=== PATIENT | male | born 1950 | race Caucasian/White ===

== ENCOUNTER 2024-02-18 16:38 | Emergency (ER) | payer MEDICARE, SELFPAY ==
[2024-02-18] VITALS (8 sets, daily range): BP systolic 132–165; BP diastolic 68–83; PULSE 58–64; RESP 12–18; TEMP 36.9; O2SAT 93–98
--- NOTE | ~2024-02-18 | XR_ITS ---
XR chest 1V portable Ordering provider: Brandon Najera MD History: 73 years Male with . Feeling unwell . Comparison: None. FINDINGS: MEDIASTINUM: The cardiac silhouette is not enlarged. LUNGS: No infiltrates, effusions or pneumothorax. Prominent markings in the lower lobes. OTHER: No free air under the diaphragm. Degenerative the spine. IMPRESSION: No acute cardiopulmonary pathology. Prominent markings in the lower lobes. Bronchitis cannot be excluded. Reviewed, dictated and finalized at location A.
--- NOTE | 2024-02-18 18:05 | ECG_ITS ---
Test Date: 2024-02-18 18:09:04 Measurements Intervals [place] Rate: 61 P: 53 [place]: 186 QRS: 8 QRSD: 114 T: 42 QT: 494 QTc: 498 Interpretive Statements SINUS RHYTHM MODERATE INTRAVENTRICULAR CONDUCTION DELAY [110+ ms QRS DURATION] PROLONGED QT INTERVAL No previous ECG available for comparison Electronically Signed On 02-19-2024 12:58:26 CDT by Antonio Ryan M.D.
[2024-02-18 18:15] LABS: Basophils Percent Auto 0.6 % (0.2-1.2); Eosinophils Absolute Auto 0.1 K/mm3 (0-0.3); Eosinophils Percent Auto 1.1 % (0-4.4); Hematocrit 39.4 % (42.0-52.0); Hemoglobin 13.2 g/dL (14.0-18.0); Immature Granulocyte Absolute 0.09 K/mm3 (0.00-0.031); Immature Granulocyte Percent A 1.3 % (0-0.5); Lymphocytes Absolute Auto 1.03 K/mm3 (0.9-3.2); Lymphocytes Percent Auto 14.4 % (18.3-44.2); Mean Corpuscular HGB Conc 33.5 g/dl (32-36); Mean Corpuscular Hemoglobin 32.5 pg (26-34); Mean Platelet Volume 11.5 fl (7.4-10.4); Monocytes Absolute Auto 0.3 K/mm3 (0.1-0.6); Monocytes Percent Auto 3.9 % (2.6-8.5); Neutrophils Absolute Auto 5.6 K/mm3 (1.3-6.7); Neutrophils Percent Auto 78.7 % (45.5-73.1); Platelet Count Result 86 k/mm3 (150-375); Red Blood Count 4.06 M/mm3 (4.6-6.20); Red Cell Distribution Width 13.5 % (11.5-14.5); White Blood Count 7.1 K/mm3 (4.5-10.0)
[2024-02-18 18:26] LABS: Alanine Aminotransferase 35 U/L (6-50); Albumin Level 4.2 g/dL (3.5-5.1); Alkaline Phosphatase 56 U/L (38-126); Anion Gap 8 mmol/L (4-12); Aspartate Amino Transferase 36 U/L (17-59); Bilirubin,Total 0.4 mg/dL (0.2-1.3); Blood Urea Nitrogen 21 mg/dL (9-20); Calcium 9.1 mg/dL (8.4-10.2); Carbon Dioxide 26 mmol/L (22-30); Chloride 104 mmol/L (98-107); Estimated CRCL calculation 58 ml/min; Estimated Glomerular Filt Rate 60; Glucose 237 mg/dL (65-110); Potassium 4.2 mmol/L (3.4-5.0); Sodium 138 mmol/L (137-145)
[2024-02-18] MEDS: ACETAMINOPHEN 500 MG TABLET 1000 MG PO (19:16)
[2024-02-18] MEDS: ONDANSETRON INJ 4 MG/2 ML VIAL IV PUSH (19:16)
[2024-02-18] MEDS: SODIUM CHLORIDE 0.9% IV 2,000 ML 999 ML IV CONT (19:17)
--- NOTE | 2024-02-18 19:23 | PC.NURSE ---
this rn assumed care of patient.
--- NOTE | 2024-02-18 19:32 | ED.GENADULT ---
HPI - General Adult General Chief complaint: Dizziness Stated complaint: DIZZINESS,FLORES N/V Time Seen by Provider: 02/18/24 18:08 History of Present Illness HPI narrative: 89-year-old male presenting with sudden onset of flu-like symptoms. At 3:30 p.m. today was at the grocery store he started to feel well. He had episode of nausea and vomiting. He developed a headache and subjective fevers and diaphoresis. He has no associated chest pain shortness of breath or abdominal pain. He does note he has some dysuria he has been treated multiple rounds of antibiotics no change. Patient his has had a cold. Patient says his condition is rapidly improved since he had the episode of vomiting. Related Data Allergies Allergy/AdvReac Type Severity Reaction Status Date / Time morphine AdvReac Vomiting Verified 02/18/24 18:07 Exam Narrative: APPEARANCE: No apparent distress. Head: atraumatic. EYES: EOMI, NOSE: Atraumatic NECK: Trachea midline RESPIRATORY: No increased rate of breathing Clear to auscultation CARDIOVASCULAR: RRR, no peripheral edema ABDOMINAL: Non-distended soft nontender MUSCULOSKELETAl: No obvious deformities NEURO: Alert. Moving 4/4 extremities SKIN:: Warm, dry. Normal color PSYCHIATRIC: Normal affect Course Vital Signs Vital signs: Vital Signs Temperature 98.4 F 02/18/24 16:55 Pulse Rate 58 L 02/18/24 16:55 Respiratory Rate 18 02/18/24 16:55 Blood Pressure 165/76 H 02/18/24 16:55 Pulse Oximetry 95 02/18/24 16:55 Oxygen Delivery Room Air 02/18/24 16:55 Temperature 98.4 F 02/18/24 16:55 Pulse Rate 62 02/18/24 19:14 Respiratory Rate 12 02/18/24 19:14 Blood Pressure 151/78 H 02/18/24 19:14 Pulse Oximetry 96 02/18/24 19:14 Oxygen Delivery Room Air 02/18/24 16:55 Medical Decision Making [facility] Narrative Medical decision making narrative: -Course: 73-year-old male presenting with nausea and vomiting that has since resolved. Patient's workup here including laboratory studies, EKG chest x-ray and viral swabs were negative. Patient was monitored for several hours and is feeling well. He is requesting discharge home. Patient no longer has any symptoms. Patient discharged w/ return precautions. PCP f/u. -DDX includes but is not limited to: viral syndrome, food poisoning, ACS pneumonia, UTI dehydration, gastroenteritis -Co-morbidities complicating care: diabetes hypertension, atrial fibrillation -Independent interpretation of studies: CBC normal. Metabolic panel unremarkable viral swabs negative chest x-ray showed normal chest Independent EKG interpretation: Rhythm [sinus], Rate [61], [place] -[normal], [place] -[normal], QRS [narrow], QTC [normal], T waves -[negative for concerning inversions], ST Segments - [Negative for concerning elevations] Final interpretations: [Normal Sinus Rhythm] -Interventions: 2 L normal saline, Zofran, Tylenol -Shared decision making / Disposition: discharge Vital Signs Vital Signs: Vital Signs Temperature 98.4 F 02/18/24 16:55 Pulse Rate 58 L 02/18/24 16:55 Respiratory Rate 18 02/18/24 16:55 Blood Pressure 165/76 H 02/18/24 16:55 Pulse Oximetry 95 02/18/24 16:55 Oxygen Delivery Room Air 02/18/24 16:55 Temperature 98.4 F 02/18/24 16:55 Pulse Rate 62 02/18/24 19:14 Respiratory Rate 12 02/18/24 19:14 Blood Pressure 151/78 H 02/18/24 19:14 Pulse Oximetry 96 02/18/24 19:14 Oxygen Delivery Room Air 02/18/24 16:55 Lab Data 02/18/24 18:07 02/18/24 18:07 Labs: Lab Results 02/18/24 02/18/24 Range/Units 18:07 19:26 WBC 7.1 (4.5-10.0) K/mm3 RBC 4.06 L (4.6-6.20) M/mm3 Hgb 13.2 L (14.0-18.0) g/dL Hct 39.4 L (42.0-52.0) % MCV 97.0 (80-100) fl MCH 32.5 (26-34) pg MCHC 33.5 (32-36) g/dl RDW 13.5 (11.5-14.5) % Plt Count 86 L (150-375) k/mm3 MPV 11.5 H (7.4-10.4) fl Immature Gran % (Auto) 1.3 H (0-0.5) % Neut % (
[2024-02-18 20:10] LABS: Influenza A QL RT-PCR Negative (Negative); Influenza B QL RT-PCR Negative (Negative); RSV RNA, RT-PCR Negative (Negative); SARS-CoV-2 RNA PCR Negative (Negative)
== END 2024-02-18 21:52 | disposition home or self-care (01) ==
PROVIDERS: Emergency Medicine; Emergency Provider Emergency Medicine
DX: R11.2 Nausea with vomiting, unspecified (principal); Z20.822 Contact with and (suspected) exposure to COVID-19; I10 Essential (primary) hypertension; I48.91 Unspecified atrial fibrillation; E11.9 Type 2 diabetes mellitus without complications
CPT/HCPCS: 36415; 71045; 80053; 85025; 85055; 87637; 93005; 96361; 96374; 99284; A9270; J2405; J7030

== ENCOUNTER 2025-02-16 17:39 | Emergency (ER) | payer MEDICARE, SELFPAY ==
--- NOTE | ~2025-02-16 | XR_ITS ---
CHEST RADIOGRAPH, PA AND LATERAL CLINICAL HISTORY: flu like symptoms . COMPARISON: 02/18/2024 TECHNIQUE: PA and lateral views of the chest. FINDINGS Prosthetic valve in the aortic position. The remainder of the cardiomediastinal silhouette is otherwise unremarkable. The lungs are clear. IMPRESSION: No focal infiltrate or effusion. Reviewed, dictated and finalized at location A.
--- NOTE | 2025-02-16 17:42 | ECG_ITS ---
Test Date: 2025-02-16 18:22:07 Measurements Intervals [place] Rate: 69 P: 5 DC: 143 QRS: 10 QRSD: 106 T: 29 QT: 466 QTc: 501 Interpretive Statements SINUS RHYTHM CONSIDER INFERIOR INFARCT, AGE INDETERMINATE PROLONGED QT INTERVAL BASELINE ARTIFACT- I, II, III, AVR, AVL, AVF ABNORMAL ECG Compared to ECG 02/18/2024 18:09:04 NO SIGNIFICANT CHANGE Electronically Signed On 02-16-2025 20:53:16 CDT by Mauricio Figueredo D.O.
--- OUTSIDE RECORDS SUMMARY | 2025-02-16 17:42 | XMS_ITS | Continuity of Care Document ---
Author Organization [facility] Address [address] [place] [address] Phone Care Team Providers Care Barkeeper Name Role Phone Tyaler PT, Shantal CHAMBERS Unavailable Unavailable Procedures Procedure Date Neuromuscular Re-Ed Hot or Cold Pack Therapeutic Exercise Neuromuscular Re-Ed Therapeutic Activities Hot or Cold Pack Therapeutic Activities Hot or Cold Pack Neuromuscular Re-Ed Therapeutic Activities Neuromuscular Re-Ed Hot or Cold Pack Therapeutic Activities Neuromuscular Re-Ed Therapeutic Exercise Hot or Cold Pack Therapeutic Activities Neuromuscular Re-Ed Hot or Cold Pack Therapeutic Activities Neuromuscular Re-Ed Hot or Cold Pack Hot or Cold Pack Neuromuscular Re-Ed Therapeutic Activities Manual Therapy Neuromuscular Re-Ed Hot or Cold Pack Manual Therapy Therapeutic Activities Therapeutic Activities Neuromuscular Re-Ed Hot or Cold Pack Therapeutic Activities Neuromuscular Re-Ed Therapeutic Exercise Hot or Cold Pack Therapeutic Exercise PT Evaluation Low Complexity Neuromuscular Re-Ed THERAPEUTIC EXERCISES NEUROMUSCULAR RE-ED FUNC ACTIVITY PT RE-EVALUATION THERAPEUTIC EXERCISES NEUROMUSCULAR RE-ED FUNC ACTIVITY THERAPEUTIC EXERCISES NEUROMUSCULAR RE-ED MANUAL THERAPY FUNC ACTIVITY THERAPEUTIC EXERCISES NEUROMUSCULAR RE-ED FUNC ACTIVITY THERAPEUTIC EXERCISES NEUROMUSCULAR RE-ED MANUAL THERAPY FUNC ACTIVITY THERAPEUTIC EXERCISES NEUROMUSCULAR RE-ED MANUAL THERAPY FUNC ACTIVITY THERAPEUTIC EXERCISES NEUROMUSCULAR RE-ED MANUAL THERAPY FUNC ACTIVITY PT RE-EVALUATION THERAPEUTIC EXERCISES FUNC ACTIVITY THERAPEUTIC EXERCISES FUNC ACTIVITY THERAPEUTIC EXERCISES MANUAL THERAPY FUNC ACTIVITY THERAPEUTIC EXERCISES MANUAL THERAPY FUNC ACTIVITY PT EVALUATION THERAPEUTIC EXERCISES Advance Directives Directive Yes / No Effective Date File Name No Information Encounters Encounter Description Practice Location Reason(s) For Visit Diagnoses Date Provider Providers Copied on Encounter [facility], [address], [place], [place], [id number], [place] tel:[phone] [place] No Information 2 Tayler Murguia. . Referring Provider: Timothy Pablo, [address] [facility] [address], [place], [address]. tel:[phone] [facility], [address], [place], [place], [address], [place] tel:[phone] [place] No Information 2 Muehl Toan. [address] [facility], [address], [place], [place], [facility], [place]. tel:[phone] Referring Provider: [address], [place], [address]. tel:[phone] [place] [address], [address], [place], [place], [address], tel:[phone] [place] No Information 2 Muehl Toan. [address] [facility], [address], [place], [address], [place]. tel:[phone] Referring Provider: [address], [place], [address]. tel:[phone] [place] [address], [address] [facility] [address], [place], [place], [address], tel:[phone] [place] No Information 2 Lehnen Shantal. . Referring Provider: [address], [place], [address]. tel:[phone] [place] [address] [address], [place], [place], [address], [place] tel:[phone] [place] No Information 1 Muehl Toan. [address] [place] [address], [address], [place], [address], . tel:[phone] Referring Provider: [address], [place], [address]. tel:[phone] [place] [address] [address], [place], [place], [address], [place] tel:[phone] [place] No Information 1 Lehnen Shantal. . Referring Provider: [address], [place], [address]. tel:[phone] [place] [address] [facility] [address], [place], [place], [address], [place] tel:[phone] [place] No Information Dec-2 0-202 1 Lehnen Shantal. . Referring Provider: [address], [place], [address]. tel:[phone] [place] [address], [address], [place], [place], [address], tel:[phone] [place] No Information Dec-1 7- 1 Elsy Joya. [address] [place] [address], [address], [place], [place], [facility], . tel:[phone] Referring Provider: [address], [place], [address]. tel:[phone] [place] [address] [place], [place] [address], [place], [place], [address], tel:[phone] [place] No Information Dec-1 - 1 Elsy Joya. [address] [place] [address], [address], [place], [place], [facility], . tel:[phone] Referring Provider: [address], [place], [address]. tel:[phone] [place] [address] [place], [place] [address]uite [facility], [place], [place], [address], tel:[phone] [place] No Information Dec-1 3-202 1 Lehnen Shantal. . Referring Provider: [address], [place], [address]. tel:[phone] [facility] [address], [place], [place], [address], [place] tel:[phone] [place] No Information Dec-1 0-202 1 Lehnen Shantal. . Referring Provider: [address], [place], [address]. tel:[phone] [facility], [address], [place], [place], [address], [place] tel:[phone] [place] No Information Dec-0 8-202 1 Lehnen Shantal. . Referring Provider: Timothy Pablo, [address] [facility] [address], [place], [address]. tel:[phone] [facility], [address], [place], [place], [address], [place] tel:[phone] [place] No Information 7 Long Johnson. . Referring Provider: Cris Noe, On license of [facility], [place], [address]. tel:[phone] [facility], [address], [place], [place], [address], [place] tel:[phone] [place] No Information 7 Crofton Saira. [address] [place] [address], [address], [place], [address], [place]. tel:[phone] Referring Provider: Cris Noe, On license of [facility] [address], [place], [address]. tel:[phone] [facility], [address], [place], [place], [address], [place] tel:[phone] [place] No Information 7 Therese Saira. [address] [place] [address], [address], [place], [address], [place]. tel:[phone] Referring Provider: Cris Noe, On license of [facility] [address], [place], [address]. tel:[phone] [facility] [facility] [address], [place], [place], [address], [place] tel:[phone] [place] No Information 7 Crofton Saira. [address] [facility], [address], [place], [address], [place]. tel:[phone] Referring Provider: Cris Noe, On license of [facility], [place], [address]. tel:[phone] [facility] [facility] [address], [place], [place], [address], [place] tel:[phone] [place] No Information 7 Crofton Saira. [address] [place] [address], [address], [place], [address], [place]. tel:[phone] Referring Provider: Cris Noe, On license of [facility] [facility] [address], [place], [address]. tel:[phone] [place] [address] [address], [place], [place], [address], [place] tel:[phone] [place] No Information 7 Therese Saira. [address] [place] [address], [address], [place], [address], [place]. tel:[phone] Referring Provider: Cris Noe, [address] [place] [address] [address], [place], [address]. tel:[phone] [place] [address] [address], [place], [place], [address], [place] tel:[phone] [place] No Information 7 Therese Saira. [address] [place] [address], [address], [place], [address], [place]. tel:[phone] Referring Provider: Cris Noe, [address] [place] [address] [address], [place], [address]. tel:[phone] [place] [address] [address], [place], [place], [address], [place] tel:[phone] [place] No Information 7 Therese Saira. [address] [place] [address], [address], [place], [address], [place]. tel:[phone] Referring Provider: Cris Noe [address] [place] [address] [address], [place], [address]. tel:[phone] [place] [address], [address], [place], [place], [address], [place] tel:[phone] [place] No Information 7 Crofton Saira. [address] [place] [address], [address], [place], [facility], . tel:[phone] Referring Provider: Cris Noe [address] [place] [address], [place], [address]. tel:[phone], [id number], tel:[phone] [place] No Information 6 Crofton Saira. [address] [place] [address], [facility] [address], [place], [facility], . tel:[phone] Referring Provider: Cris Noe [address] [place] [address], [place], [address]. tel:[phone], [id number], tel:[phone] [place] No Information 6 Crofton Saira. [address] [place] [address], [address], [facility], [place]. tel:[phone] Referring Provider: Cris Noe [address] [place] [address], [place], [address]. tel:[phone], [id number], [place] tel:[phone] [place] Pain in right kneeStiffness of right knee, not elsewhere classifiedOth symptoms and signs involving the musculoskelet al systemOther abnormalities of gait and mobilityPrese nce of right artificial knee jointAftercar e following joint replacement surgery 6 Therese Saira. [address] [facility], [facility] [address], [place], [address], [place]. tel:[phone] Referring Provider: Cris Noe [address] [place] [address], [place], [address]. tel:[phone] Family History Family Member Type Diagnosis Age At Onset No Information Payers Payer name Insurance type Covered libertarian ID Authoroliviaa tiem(s) [employer] Medicare Replacement CI [id number] Social History Type Description Quantity Date Captured Comments Sex Male Smoking Status No Information Chief Complaint And Reason For Visit No Information Reason For Referral Reason For Referral No Information Plan Of Treatment Date Type Action Status Referral Ordered: Referrals: Specialist. Evaluate and Treat (related to Adjustment disorder with depressed mood) ordered Referral Ordered: Depression: Depression management program timeframe: 1 Day. (related to Depression) ordered Referral Ordered: Clinical Psychology (related to Depression) ordered Referral Ordered: PCP timeframe: 1 week. (related to Overweight) ordered Referral Ordered: Weight management: Referral to physician timeframe: 1 Month. (related to Overweight) ordered History Of Present Illness Encounter Date Complaint History Of Prese nt Illness No Information Functional Status Date Functional Assessmen t No Information Instructions Date Instruction Additional Infor mation No Information Assessments Type Assessment Date No Information Patient Care Teams Name Effective Dates (start - stop) Status Members No Information
--- OUTSIDE RECORDS SUMMARY | 2025-02-16 17:42 | XMS_ITS | Encounter Summary ---
Author Organization [facility] Healthcare Address [address] [place] [address] Care Team Providers Care Licensed Mental Health Professional Name Role Phone Terence Gupta MD Unavailable [phone] Navi Duarte MD Unavailable [phone] Surendra Henriquez MD Primary Care Provider [phone] Encounter Details Date Type Department Care Team (Late st Contact Info) Description 02/11/2025 [facility] Post Discharge Follow up phone call [address] [address] Amy Jordan Social History Tobacco Use Types Packs/Day Years Used Date Smoking Tobacco: Former Cigarettes Smokeless Tobacco: Never Alcohol Use Standard Drinks/Week Comments Yes 0 (1 standard drink = 0.6 oz pur e alcohol) AUDIT-C Answer Date Recorded Q1: How often do you have a drink containing alc ohol? Monthly or less 02/05/2025 Q2: How many drinks containi ng alcohol do you have on a typical day when you are drinking? 1 or 2 02/05/2025 Q3: How often do you have si x or more drinks on one occasion? Never 02/05/2025 Personal Safety Answer Date Recorded Have you ever been in or are you currently in a harmful physical or emotional relationship or is someone making you feel afraid or unsafe? 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 [address] [place] [address] PCP - General Internal Medicine 11/19/24 [place] [address] [facility] [address] [place] [address] Consulting Physician Urology 01/13/21 Navi Duarte MD [address] [id number] Consulting Physician Interventional Cardiology 08/29/23 documented as of this encounter
--- OUTSIDE RECORDS SUMMARY | 2025-02-16 17:42 | XMS_ITS | Clinical Summary ---
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 Name Role Phone Terence Gupta MD Unavailable [phone] Rafiq Duarte MD Unavailable [phone] Surendra Henriquez MD Primary Care Provider [phone] Allergies Active Allergy Reactions Criticality Noted Date Comments Morphine Vomiting Low Reaction: GI;, , Medications multivitamin tablet tablet take 1 tablet by oral route every day with food 0 0 03/21/20 15 Active Additional Information Patient taking differently: 1 tablet oral Every morning, Reported on 01/31/2025 simvastatin (ZOCOR) 20 mg tablet Take 1 tablet (20 mg total) by mouth every morning 12/30/19 18 Active escitalopram (LEXAPRO) 10 mg tablet Take 2 tablets (20 mg total) by mouth every morning Active memantine (NAMENDA) 10 mg tabletIndications:M oderate to Severe Alzheimer's Type Dementia Take 1 tablet (10 mg total) by mouth 2 (two) times a day Active allopurinoL (ZYLOPRIM) 300 mg tablet Take 1 tablet (300 mg total) by mouth every morning 02/17/20 23 Active glipiZIDE (GLUCOTROL) 5 mg tablet Take 1 tablet (5 mg total) by mouth 2 (two) times a day 07/26/20 23 Active ARIPiprazole (ABILIFY) 2 mg tablet Take 1 tablet (2 mg total) by mouth every morning 08/12/20 23 Active propranoloL (INDERAL) 10 mg tablet Take 1 tablet (10 mg total) by mouth 3 (three) times a day Active metFORMIN (GLUCOPHAGE) 1,000 mg tablet Take 1 tablet (1,000 mg total) by mouth 2 (two) times a day with meals Active fluticasone propionate (FLONASE) 50 mcg/actuation nasal spray Administer 1 spray into each nostril daily as needed Active fenofibrate nanocrystallized (TRICOR) 145 mg tablet Take 1 tablet (145 mg total) by mouth every morning Active Eliquis 5 mg tablet TAKE 1 TABLET BY MOUTH TWICE A DAY 180 tablet 3 10/23/19 25 Active finasteride (PROSCAR) 5 mg tabletIndications:B enign prostatic hyperplasia with weak urinary stream Take 1 tablet (5 mg total) by mouth every morning 90 tablet 3 10/31/19 25 Active tamsulosin (FLOMAX) 0.4 mg extended release capsuleIndications: Benign prostatic hyperplasia with weak urinary stream Take 1 capsule (0.4 mg total) by mouth every morning 90 capsule 3 10/31/19 25 Active loratadine (CLARITIN) 10 mg tablet Take 1 tablet (10 mg total) by mouth every morning Active pantoprazole DR (PROTONIX) 20 mg EC tablet Take 1 tablet (20 mg total) by mouth every morning 11/02/19 25 Active clopidogreL (PLAVIX) 75 mg tablet Take 1 tablet (75 mg total) by mouth daily 30 tablet 4 02/08/20 25 026 Active FENOFIBRIC ACID, CHOLINE, ORAL Take 135 mg by mouth every morning 01/19/20 21 025 Discontin ued(Stop Taking at Discharge ) amoxicillin 500 mg tablet/capsule Take by mouth as needed PRIOR TO DENTAL APPT 025 Discontin ued(Stop Taking at Discharge ) amiodarone (PACERONE) 200 mg tabletIndications:C ardioversion of Atrial Fibrillation,Preven tion of Recurrent Atrial Fibrillation Take 1 tablet (200 mg total) by mouth every morning 025 Discontin ued(Stop Taking at Discharge ) furosemide (LASIX) 40 mg tablet Take 1 tablet (40 mg total) by mouth every morning 09/06/19 25 025 Discontin ued(Stop Taking at Discharge ) lisinopriL (PRINIVIL,ZESTRIL) 20 mg tablet Take 1 tablet (20 mg total) by mouth every morning 025 Discontin ued(Stop Taking at Discharge ) Active Problems Problem Noted Date Diagnosed Date Hypertension 01/31/2025 Hyperlipidemia 01/31/2025 CAD (coronary artery disease) 01/31/2025 Primary osteoarthritis of left hip 10/09/2024 Nonrheumatic aortic valve stenosis 12/12/2023 Dyslipidemia 12/12/2023 ROSA (dyspnea on exertion) 12/12/2023 Aneurysm of ascending aorta without rupture 04/2024 PAF (paroxysmal atrial fibrillation) 08/27/2023 Insomnia 09/28/2021 Depression 09/28/2021 Status post total left knee replacement 06/29/20 21 Status post total right knee replacement 021 MATY (acute kidney injury) 02/12/2021 Preop testing 01/12/2021 Erectile dysfunction due to diseases classified elsewhere 12/11/2020 Overview (12/11/2020): Added automatically from request for surgery [id number] Encounters Date Type Department Care Team Description 02/11/2025 Telephone [facility] Medical Group Cardiology [address] [place] [address] Rafiq Duarte MD 02/11/2025 [facility] Post Discharge Follow up phone call [address] [address] Amy Jordan 02/05/2025 8:00 AM CDT - 02/05/2025 10:00 AM CDT Surgery [facility] Cardiac Catheterization Lab [address] [place] [address] Rafiq Duarte MD TAVR - PERCUTANEOUS FEMORAL [id number] 02/05/2025 7:48 AM CDT Anesthesia Event [facility] Cardiac Catheterization Lab [address] [place] [address] Abbe Stafford MD Barnhart, Lynlee Jo, NP 02/05/2025 5:24 AM CDT - 02/06/2025 10:46 AM CDT Hospital Encounter [address] [address] Rafiq Duarte MD Nonrheumatic aortic valve stenosis Discharge Disposition: Discharge to home or self care 01/31/2025 7:50 AM CDT - 01/31/2025 11:59 PM CDT Hospital Encounter [facility] Diagnostic Imaging [address] [place] [address] Discharge Disposition: Discharge to home or self care 01/31/2025 7:45 AM CDT Pre-Admission Testing [facility] Pre Anesthesia Testing [address] [place] [address] Pre-operative exam (Primary Dx); PAF (paroxysmal atrial fibrillation) ([facility]); Chronic anticoagulation; Type 2 diabetes mellitus without complication, unspecified whether chcf insulin use ([facility]) 01/31/2025 Documentation Cardiothoracic Surgery Sabrina Nava RN 01/17/2025 Orders Only [facility] Non-invasive Cardiac Diagnostic Testing [address] [place] [address] Rafiq Duarte MD Nonrheumatic aortic valve stenosis (Primary Dx) 01/17/2025 Documentation Cardiothoracic Surgery Sabrina Nava RN 01/10/2025 2:30 PM CDT Office Visit [facility] Surgery [address] [place] [address] Sagar Alvarenga MD Aortic valve stenosis, etiology of cardiac valve disease unspecified (Primary Dx); Nonrheumatic aortic valve stenosis 01/10/2025 Documentation Cardiothoracic Surgery Sabrina Nava RN 12/31/2024 12:32 PM CDT - 12/31/2024 11:59 PM CDT Hospital Encounter [facility] Imaging and Radiology [address] [place], [place] [id number] Aortic valve stenosis, severe Discharge Disposition: Discharge to home or self care 12/21/2024 Orders Only Cardiology Rafiq Duarte MD Aortic valve stenosis, severe (Primary Dx) 12/21/2024 Cardiology Conference Cardiothoracic Surgery Sabrina Nava, BISI 12/17/2024 Telephone [facility] Medical Group Cardiology [address] [place] [address] Rafiq Duarte MD 12/11/2024 11:30 AM CDT - 12/11/2024 1:30 PM CDT Surgery [facility] Cardiac Catheterization Lab [address] [place] [address] Rafiq Duarte MD CORONARY ANGIOGRAPHY [id number] 12/11/2024 9:09 AM CDT - 12/11/2024 2:07 PM CDT Hospital Encounter [facility] Cardiac Catheterization Lab [address] [place] [address] Rafiq Duarte MD Nonrheumatic aortic valve stenosis Discharge Disposition: Discharge to home or self care 11/27/2024 Telephone [facility] Cardiology [address] [place] [address] Mimi Stoddard NP 11/16/2024 9:30 AM CDT Office Visit [facility] Cardiology [address] [place] [address] Mimi Stoddard NP Severe aortic stenosis (Primary Dx); History of GI bleed; Anemia, unspecified type from Last 3 Months Surgical History Surgery Date Site/Laterality Comments OTHER SURGICAL HISTORY gland removed left side of neck PENILE PROSTHESIS IMPLANT penile implant X 2 KNEE ARTHROPLASTY Bilateral Knee replacement FOOT FRACTURE SURGERY plate CARDIAC CATHETERIZATION 12/11/2024 N/A Procedure: CORONARY ANGIOGRAPHY [id number]; Surgeon: Rafiq Duarte MD; Location: [facility]; Service: Cardiovascular; Laterality: N/A; Medical devices from this surgery are in the Medical Devices section. CARDIAC CATHETERIZATION 12/11/2024 N/A Procedure: PERIPHERAL ANGIOGRAPHY; Surgeon: Rafiq Duarte MD; Location: C[facility]ACKAGING [facility]; Service: Cardiovascular; Laterality: N/A; Medical devices from this surgery are in the Medical Devices section. BONE BIOPSY 01/11/2025 CARDIAC CATHETERIZATION 02/05/2025 Chest/N/A Procedure: TAVR - PERCUTANEOUS FEMORAL [id number]; Surgeon: Rafiq Duarte MD; Location: C[facility]ACKAGING [facility]; Service: Cardiovascular; Laterality: N/A; Medical devices from this surgery are in the Medical Devices section. CARDIAC CATHETERIZATION 02/05/2025 Chest/N/A Procedure: LEFT HEART CATHETERIZATION WITH NO CORONARY ANGIOGRAPHY WITH AND WITHOUT LEFT VENTRICULOGRAM [id number]; Surgeon: Rafiq Duarte MD; Location: CARDIAC PACKAGING [facility]IC; Service: Cardiovascular; Laterality: N/A; Medical devices from this surgery are in the Medical Devices section. CARDIAC CATHETERIZATION 02/05/2025 Chest/N/A Procedure: AORTOGRAM THORACIC S&I 93737; Surgeon: Rafiq Duarte MD; Location: CARDIAC PACKAGING [facility]IC; Service: Cardiovascular; Laterality: N/A; Medical devices from this surgery are in the Medical Devices section. 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 Medical History Medical History Date Comments Type 2 diabetes mellitus (HCC) D iabetes type 2; Comments: [facility] 10/22/2015 - Hypercholesterolemia High choles terol; Comments: [facility] 10/22/2015 - Hypertension Hypertension Sleep apnea Depression Migraine Arrhythmia Heart murmur Infectious viral hepatitis Enlarged liver pt reported Chronic pain disorder Anemia Nonrheumatic aortic (valve) stenosis Arthritis Family History Medical History Relation Name Comments Heart disease Brother Heart disease; Multiple sclerosis Father Multiple sclerosis; Alzheimer's disease Mother Alzheime r's disease; Thyroid disease Mother Thyroid diso rder; Hepatitis Sister Hepatitis C; Relation Name Status Comments Brother Father Mother Sister Social History Tobacco Use Types Packs/Day Years Used Date Smoking Tobacco: Former Cigarettes Smokeless Tobacco: Never Tobacco Cessation:Counseling Given: Not Answered Alcohol Use Standard Drinks/Week Comments Yes 0 [...] on file 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 Gender Identity Not on file Sexual Orientation Not on file Obstetrics History Last Filed Vital Signs Vital Sign Reading Time Taken Comments Blood Pressure 153/82 02/06/2025 7:44 AM CDT Pulse 66 02/06/2025 7:44 AM CDT Temperature 36 C (96.8 F) 02/06/2025 7:44 AM CDT Respiratory Rate 18 02/06/2025 7:44 AM CDT Oxygen Saturation 97% 02/06/2025 7:44 AM CDT Inhaled Oxygen Concentration - - Weight 102.1 kg (225 lb) 02/05/2025 5:07 PM CDT Height 172.7 cm (5' 8) 02/05/2025 5:07 PM CDT Body Mass Index 34.21 02/05/2025 5:07 PM CDT Plan of Treatment Health Maintenance Due Date Last Done Comments Albumin Creatinine Ratio, Urine 1950 Colon Cancer Screening-Colonoscopy 1950 Depression Screening 1950 Hepatitis C Screening 1950 Dilated Eye Exam 1950 Foot Exam 1950 Hepatitis B Screening 1969 Well Visit 65+ 2016 Pneumococcal vaccine 65+ (2 of 2 - PCV) 08/13/2020 08/13/2019 Zoster Vaccine (3 of 3) 12/20/2022 10/25/19, 06/30/2021, 07/12/2016 Hemoglobin A1C 08/03/2025 01/31/2025, 10/06, 04/11/2024, Additional history exists Lipid Panel 10/15/2025 10/15/2024, 08/03/2024, 08/28/2023, Additional history exists Fall Risk Assessment 02/06/2026 02/06/2025 eGFR 02/06/2026 02/06/2025, 01/04, 12/11/2024, Additional history exists DTaP/Tdap/Td Vaccine (2 - Td or Tdap) 06/30/2031 06/30/2021 Abdominal Aortic Aneurysm (A AA) Screen Completed 01/09/2019, 03/05/2018 Influenza Vaccine Completed 10/19/2024, , 10/25/2022, Additional history exists Medical Devices Implanted Type Area Drafter Device Identifier Shelf Expiration Date Model / Serial / Lot [employer] Valve Aortic Trnscath Inocente 3 Ultra Resilia 26mm [id number] - [id number] - [id number] Implanted:Qty: 1 on 02/05/2025 by Rafiq Duarte MD at [facility] Prosthetic Valve [employer] 09/19/2027 [id number] / [id number] / [employer] [id number] Ams 700 Kit Accessory Penile Prosthesis - [id number] Implanted:Qty: 1 on 01/12/2021 by Terence Gupta MD at [facility] N/A: Penis [employer] 09/30/2025 [id number] / / [id number] [employer] [id number] Ams Spectra 3cm Concealable Rear Tip 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 Snapcone Prosthesis - [id number] Implanted:Qty: 1 on 01/12/2021 by Terence Gupta MD at [facility] N/A: Penis [employer] 04/15/2025 [id number] / / [id number] [employer] [id number] Ams 700 Ms Pump Preconnect Inflatable Rayle Prosthesis 65ml - [id number] Implanted:Qty: 1 on 01/12/2021 by Terence Gupta MD at [facility] N/A: Penis [employer] 10/23/2022 [id number] / / [id number] [employer] [id number] Ams 700cx Ms Pump 18cm 3 Piece Inflatable Preconnect Infrapubic - [id number] Implanted:Qty: 1 on 01/12/2021 by Terence Gupta MD at [facility] N/A: Penis [employer] 09/29/2022 [id number] / / [id number] [employer] Angio-Seal Vip 6fr Closere Device [id number] - [id number] Implanted:Qty: 1 on 12/11/2024 by Rafiq Duarte MD at [facility] [employer] 05/15/2025 [id number] / / [employer] System Closure Repair Femoral Artery Suture Mediated Perclose Prostyle 84832-83 - [id number] Implanted:Qty: 1 on 02/05/2025 by Rafiq Duarte MD at [facility] [employer] 12/03/2026 [id number] / / [id number] [employer] Closure Repair Femoral Artery Suture Mediated Perclose Prostyle 05421-60 - [id number] Implanted:Qty: 1 on 02/05/2025 by Raifq Duarte MD at [facility] [employer] 12/03/2026 [id number] / / [id number] Explanted Type Area Drafter Device Identifier Shelf Expiration Date Model / Serial / Lot Coloplast Resevoir Explanted:Qty: 1 on 01/12/2021 by Terence Gupta MD at [facility] N/A: Penis [employer] Dud[employer] Coloplast Penile Implant Cylinder Explanted:Qty: 1 on 01/12/2021 by Terence Gupta MD at [facility] N/A: Penis [employer] Coloplast Penile Implant Pump Explanted:Qty: 1 on 01/12/2021 by Terence Gupta MD at [facility] N/A: Penis [employer] Procedures Procedure Name Priority Date/Time Associated Diagnosis Comments ECG 12-LEAD Routine 02/06/2025 10:12 AM CDT XR CHEST 1 VIEW IP Routine 02/06/2025 8:26 AM CDT POCT GLUCOSE DEVICE Routine 02/06/2025 7 :43 AM CDT TRANSTHORACIC ECHO (TTE) COMPLETE W DOPPLER/CF WO CONTRAST Routine 02/06/2025 7:37 AM CDT EGFR Routine 02/06/2025 6:41 AM CDT DIFFERENTIAL AUTO Routine 02/06/2025 6:4 1 AM CDT CBC WITH AUTO DIFFERENTIAL Routine 02/06/2025 6:41 AM CDT BASIC METABOLIC PANEL Routine 02/06/2025 6:41 AM CDT POCT GLUCOSE DEVICE Routine 02/05/2025 8 :18 PM CDT POCT GLUCOSE DEVICE Routine 02/05/2025 11:37 AM CDT ECG 12-LEAD Routine 02/05/2025 10:42 AM CDT PERIPHERAL ANGIOGRAPHY Routine 02/05/2025 9:41 AM CDT Nonrheumatic aortic valve stenosis AORTOGRAM THORACIC S&I Routine 02/05/2025 9:41 AM CDT Nonrheumatic aortic valve stenosis LEFT HEART CATHETERIZATION (LHC) Routine 02/05/2025 9:41 AM CDT Nonrheumatic aortic valve stenosis TRANSCATHETER AORTIC VALVE REPLACEMENT (TAVR) OPEN FEMORAL ART APPROACH Routine 02/05/2025 9:41 AM CDT Nonrheumatic aortic valve stenosis POCT GLUCOSE DEVICE Routine 02/05/2025 9 :11 AM CDT POCT ACTIVATED CLOTTING TIME, HIGH RANGE Routine 02/05/2025 9:08 AM CDT INSERTION TEMPORARY PACEMAKER 02/05/2025 7:48 AM CDT Nonrheumatic aortic valve stenosis PREPARE RBC STAT 02/05/2025 6:53 AM CDT B CHECK SAMPLE STAT 02/05/2025 6:45 AM CDT DIFFERENTIAL AUTO STAT 02/05/2025 6:3 6 AM CDT PROTIME-INR STAT 02/05/2025 6:36 AM CDT CBC WITH AUTO DIFFERENTIAL STAT 02/05/2025 6:36 AM CDT POTASSIUM, WHOLE BLOOD STAT 02/05/2025 6:36 AM CDT POCT GLUCOSE DEVICE Routine 02/05/2025 6 :20 AM CDT EGFR Routine 01/31/2025 8:29 AM CDT Pre-operative exam COMPREHENSIVE METABOLIC PANEL Routine 01/31/2025 8:29 AM CDT Pre-operative exam PRO B-TYPE NATRIURETIC PEPTIDE Routine 01/31/2025 8:29 AM CDT Pre-operative exam PROTIME-INR Routine 01/31/2025 8:29 AM CDT Pre-operative exam PAF (paroxysmal atrial fibrillation) (HCC) APTT Routine 01/31/2025 8:29 AM CDT Pre-operative exam Chronic anticoagulation XR CHEST PA LATERAL 2 VIEWS Schedule Routine, Read Routine (OP Routine) 01/31/2025 8:21 AM CDT Pre-operative exam ECG 12-LEAD Routine 01/31/2025 8:09 AM CDT Pre-operative exam DIFFERENTIAL AUTO Routine 01/31/2025 7:4 3 AM CDT Pre-operative exam TYPE AND SCREEN Routine 01/31/2025 7:43 AM CDT Pre-operative exam CBC WITH AUTO DIFFERENTIAL Routine 01/31/2025 7:43 AM CDT Pre-operative exam HEMOGLOBIN A1C Routine 01/31/2025 7:43 AM CDT Pre-operative exam Type 2 diabetes mellitus without complication, 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 (HCC) CT TAVR Schedule Routine, Read Routine (OP Routine) 12/31/2024 1:21 PM CDT Aortic valve stenosis, severe POCT GLUCOSE DEVICE Routine 12/11/2024 12:06 PM CDT LEFT CORONARY ANGIOGRAPHY Routine 12/11/2024 11:48 AM CDT Nonrheumatic aortic valve stenosis PERIPHERAL ANGIOGRAPHY Routine 12/11/2024 11:48 AM CDT Nonrheumatic aortic valve stenosis MODERATE SEDATION FIRST 15MIN 5+ YEAR [id number] 12/11/2024 10:46 AM CDT Nonrheumatic aortic valve stenosis MODERATE SEDATION SAME MD CHONG ADDL 15 MIN 07347 12/11/2024 10:46 AM CDT Nonrheumatic aortic valve stenosis EGFR STAT 12/11/2024 9:52 AM CDT DIFFERENTIAL AUTO STAT 12/11/2024 9:5 2 AM CDT BASIC METABOLIC PANEL STAT 12/11/2024 9:52 AM CDT CBC WITH AUTO DIFFERENTIAL STAT 12/11/2024 9:52 AM CDT POCT GLUCOSE DEVICE Routine 12/11/2024 9 :21 AM CDT POCT LIPID PANEL Routine 10/15/2024 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 Rafiq Duarte [facility] us Rafiq Duarte MD ECG ORDERABLES Lizeth l Result [facility] * XR Chest 1 Vw Portable (02/06/2025 8:26 AM CDT) Anatomical Region Laterality Modality Body, Chest N/A Computed Radiogr aphy 02/06/2025 8:36 AM CDT Impressions 02/06/2025 8:36 AM CDT No failure. Electronically signed by: Juan Quiles M.D. Narrative 02/06/2025 8:36 AM CDT EXAMINATION: XR CHEST 1 VIEW HISTORY: The patient is a 74-year-old male who has had a TAVR procedure. Comparison made with the previous study dated 01/31/2025. TECHNIQUE: AP portable view of the chest. FINDINGS: Cardiomegaly with aortic atherosclerosis. No failure. TAVR device in place. No focal infiltrate. Procedure Note Juan Quiles MD - 02/06/2025 EXAMINATION: XR CHEST 1 VIEW HISTORY: The patient is a 74-year-old male who has had a TAVR procedure. Comparison made with the previous study dated 01/31/2025. TECHNIQUE: AP portable view of the chest. FINDINGS: Cardiomegaly with aortic atherosclerosis. No failure. TAVR device in place. No focal infiltrate. IMPRESSION: No failure. Electronically signed by: Juan Quiles M.D. Carmelo Goddard DUDE WRANGLER IMG XR PROCEDURES Final Res ult * POCT glucose (02/06/2025 7:43 AM CDT) Glucose, POC 180 70 - 199 mg/dL POC Performer [id number] [facility] Blood 02/06/2025 7:43 AM CDT 02/06/2025 7:43 AM CDT us Rafiq Duarte MD LAB POCT ORDERABLES - DEVICE Final Result G[facility] [id number] [address] [place] [address] * TRANSTHORACIC ECHO (TTE) COMPLETE W DOPPLER/CF WO CONTRAST (02/06/2025 7:37 AM CDT) Estimated EF 65 % CONS SCIMAGE Anatomical Region Laterality Modality Ultrasound 02/06/2025 6:58 AM CDT Narrative 02/06/2025 8:14 [place] [address] Echocardiogram Report Patient Name: EHSAN DUBOIS L : 1950 Study Date: 02/06/2025 6:58:05 AM Gender: M Tech: Location: [id number] Ref Provider: RAFIQ DUARTE Height(Cm): 172 BSA: 2.21 Weight(Kg): 102 Heart Rate: 67 BP: 135 / 75 Quality: Good Order Provider: RAFIQ DUARTE PROCEDURES: Echocardiographic Report: Transthoracic echocardiogram with complete 2D, M-Mode, and color Doppler examination. INDICATIONS: S/P TAVR. MEASUREMENTS: 2D/MM Value Range Doppler Value Range Estimated EF 65 % DIANN Vmax 2.60 cm2 LVIDd 2D 5.05 cm [ 4.20 - 5.80 ] AV Mean PG 12 mmHg LVIDs 2D 3.36 cm [ 2.50 - 4.00 ] AV Peak Wilfredo 2.49 m/s [ 1.00 - 1.70 ] LVPWd 2D 1.43 cm [ 0.60 - 1.00 ] AV VTI 56.71 cm IVSd 2D 1.34 cm [ 0.60 - 1.00 ] LVOT Diam 2.48 cm LA Dimension 2D 4.38 cm [ 3.00 - 4.00 ] LVOT Peak Wilfredo 1.34 m/s [ 0.70 - 1.10 ] LA Dimension MM 3.65 cm [ 3.00 - 4.00 ] LVOT VTI 35.80 cm AoR Diam 2D 3.89 cm [ 3.10 - 3.70 ] SI LVOT 80.8 ml/m2 [ >= 35.0 ] AoR Diam MM 3.74 cm [ 3.10 - 3.70 ] MV E Peak Wilfredo 1.06 m/s [ 0.60 - 1.30 ] MV A Peak Wilfredo 0.87 m/s [ 1.00 - 1.20 ] MV Mean PG 3 mmHg MV PHT 101 msec [ 20 - 100 ] MVA PHT 2.18 cm2 MV Decel Time 257 msec [ 104 - 258 ] PV Peak Wilfredo 1.12 m/s [ 0.40 - 0.80 ] PI Peak Wilfredo 0.85 m/s TR Peak Wilfredo 2.80 m/s [ 1.00 - 2.80 ] TR Peak PG 31 mmHg E` 0.07 m/s E/E` 15.05 2D/MM Value Range Doppler Value Range - FINDINGS: Atrial Septum: Normal atrial septum. Left Ventricle: Normal left ventricular size. Severe concentric left ventricular hypertrophy. Impaired diastolic relaxation Grade I. Ejection Fraction is visually estimated to be 65 %. Left Atrium: There is mild enlargement of left atrium. Right Ventricle: Normal right ventricular size. Normal right ventricular systolic function. Right Atrium: The right atrium is normal in size. Aortic Valve: No evidence of hemodynamically significant aortic stenosis by Doppler. No aortic regurgitation. Mean gradient of 12.0 mmHg. Valve area of 2.6 cm2. Normal appearing aortic valve prosthesis. Gradients normal for valve type and size. Mitral Valve: Moderate mitral annular calcification. There is no hemodynamically significant mitral stenosis by Doppler. Mild mitral valve regurgitation. Pulmonic Valve: Normal structure of the pulmonic valve. No evidence of pulmonic regurgitation. Tricuspid Valve: Normal structure of the tricuspid valve. Estimated peak RVSP is 36 mmHg. Mild tricuspid regurgitation. Pericardium: Normal pericardium with no significant pericardial effusion. Aorta: Sinus of Valsalva is mildly dilated. Sinus of Valsalva 3.9 cm. IVC: Normal size and normal respiratory collapse consistent with normal right atrial pressure (<5 mmHg). Pulmonary Artery: Normal pulmonary artery size. CONCLUSIONS: Normal left ventricular size. Severe concentric left ventricular hypertrophy. Impaired diastolic relaxation Grade I. Ejection Fraction is visually estimated to be 65 %. There is mild enlargement of left atrium. Moderate mitral annular calcification.Mild mitral valve regurgitation. No evidence of hemodynamically significant aortic stenosis by Doppler. No aortic regurgitation. Mean gradient of 12.0 mmHg. Valve area of 2.6 cm2. Normal appearing aortic valve prosthesis. Gradients normal for valve type and size. Estimated peak RVSP is 36 mmHg. Mild tricuspid regurgitation. Sinus of Valsalva is mildly dilated. Sinus of Valsalva 3.9 cm. Electronically Signed By: Dr. Rafiq Duarte [facility] 02/06/2025 8:13:51 AM CDT Procedure Note Rafiq Duarte MD - 02/06/2025 [place] [address] Echocardiogram Report Patient Name: EHSAN DUBOIS L : 1950 Study Date: 02/06/2025 6:58:05 AM Gender: M Tech: Location: [id number] Ref Provider: RAFIQ DUARTE Height(Cm): 172 BSA: 2.21 Weight(Kg): 102 Heart Rate: 67 BP: 135 / 75 Quality: Good Order Provider: RAFIQ DUARTE PROCEDURES: Echocardiographic Report: Transthoracic echocardiogram with complete 2D, M-Mode, and color Dopplerexamination. INDICATIONS: S/P TAVR. MEASUREMENTS: 2D/MM Value Range Doppler ValueRange Estimated EF 65 % DIANN Vmax 2.60cm2 LVIDd 2D 5.05 cm [ 4.20 - 5.80 ] AV Mean PG 12mmHg LVIDs 2D 3.36 cm [ 2.50 - 4.00 ] AV Peak Wilfredo 2.49 m/s[ 1.00 - 1.70 ] LVPWd 2D 1.43 cm [ 0.60 - 1.00 ] AV VTI 56.71cm IVSd 2D 1.34 cm [ 0.60 - 1.00 ] LVOT Diam 2.48cm LA Dimension 2D 4.38 cm [ 3.00 - 4.00 ] LVOT Peak Wilfredo 1.34 m/s[ 0.70 - 1.10 ] LA Dimension MM 3.65 cm [ 3.00 - 4.00 ] LVOT VTI 35.80cm AoR Diam 2D 3.89 cm [ 3.10 - 3.70 ] SI LVOT 80.8ml/m2 [ >= 35.0 ] AoR Diam MM 3.74 cm [ 3.10 - 3.70 ] MV E Peak Wilfredo 1.06 m/s[ 0.60 - 1.30 ] MV A Peak Wilfredo 0.87 m/s [ 1.00 - 1.20 ] MV Mean PG 3 mmHg MV PHT 101 msec [ 20 - 100 ] MVA PHT 2.18 cm2 MV Decel Time 257 msec [ 104 - 258 ] PV Peak Wilfredo 1.12 m/s [ 0.40 - 0.80 ] PI Peak Wilfredo 0.85 m/s TR Peak Wilfredo 2.80 m/s [ 1.00 - 2.80 ] TR Peak PG 31 mmHg E` 0.07 m/s E/E` 15.05 2D/MM Value Range Doppler ValueRange - FINDINGS: Atrial Septum: Normal atrial septum. Left Ventricle: Normal left ventricular size. Severe concentric left ventricularhypertrophy. Impaired diastolic relaxation Grade I. Ejection Fraction is visually estimated luis angel 65 %. Left Atrium: There is mild enlargement of left atrium. Right Ventricle: Normal right ventricular size. Normal right ventricular systolicfunction. Right Atrium: The right atrium is normal in size. Aortic Valve: No evidence of hemodynamically significant aortic stenosis by Doppler. Noaortic regurgitation. Mean gradient of 12.0 mmHg. Valve area of 2.6 cm2. Normalappearing aortic valve prosthesis. Gradients normal for valve type and size. Mitral Valve: Moderate mitral annular calcification. There is no hemodynamicallysignificant mitral stenosis by Doppler. Mild mitral valve regurgitation. Pulmonic Valve: Normal structure of the pulmonic valve. No evidence of pulmonicregurgitation. Tricuspid Valve: Normal structure of the tricuspid valve. Estimated peak RVSP is 36 mmHg.Mild tricuspid regurgitation. Pericardium: Normal pericardium with no significant pericardial effusion. Aorta: Sinus of Valsalva is mildly dilated. Sinus of Valsalva 3.9 cm. IVC: Normal size and normal respiratory collapse consistent with normal rightatrial pressure (<5 mmHg). Pulmonary Artery: Normal pulmonary artery size. CONCLUSIONS: Normal left ventricular size. Severe concentric left ventricularhypertrophy. Impaired diastolic relaxation Grade I. Ejection Fraction is visually estimated luis angel 65 %. There is mild enlargement of left atrium. Moderate mitral annular calcification.Mild mitral valve regurgitation. No evidence of hemodynamically significant aortic stenosis by Doppler. Noaortic regurgitation. Mean gradient of 12.0 mmHg. Valve area of 2.6 cm2. Normalappearing aortic valve prosthesis. Gradients normal for valve type and size. Estimated peak RVSP is 36 mmHg. Mild tricuspid regurgitation. Sinus of Valsalva is mildly dilated. Sinus of Valsalva 3.9 cm. Electronically Signed By: Dr. Rafiq Duarte [facility] 02/06/2025 8:13:51 AM CDT us Rafiq Duarte MD CV ECHO PROCEDURES F inal Result * eGFR (02/06/2025 6:41 AM CDT) eGFR 89 >=60 mL/min/1. 73 m2 Comment: Interpretive Data Reference Interval Normal >/= 90 mL/min/1.73m2 Mildly decreased* 60 - 89 mL/min/1.73m2 Mildly to moderately decreased 45 - 59 mL/min/1.73m2 Moderately to severely decreased 30 - 44 mL/min/1.73m2 Severely decreased 15 - 29 mL/min/1.73m2 Kidney Failure < 15 mL/min/1.73m2 *Relative to young adult level Estimated glomerular filtration rate is determined by the 2020 CKD-EPI equation recommended by the National Kidney Foundation (A Unifying Approach to GFR Estimation: Recommendations of the NKF-ASK Task Force on Reassessing the Inclusion of Race in Diagnosing Kidney Disease, JASN 2020). The CKD-EPI equation should not be used for patients with unstable renal function and has not been validated in children and those over 70. Current interpretive data was last reviewed 2021. Blood 02/06/2025 6:41 AM CDT 02/06/2025 6:55 AM CDT us Rafiq Duarte MD LAB BLOOD ORDERABLES Final Result [facility] [id number] [place] [address] * Differential, auto (02/06/2025 6:41 AM CDT) Neutrophil abs 3.69 1.50 - 6.50 K/cumm Imm gran abs 0.03 0.00 - 0.10 K/cumm [facility] Lymphocyte abs 0.90 0.80 - 3.30 K/cumm [facility] Monocyte abs 0.34 0.20 - 0.80 K/cumm [facility] Eosinophil abs 0.07 0.00 - 0.50 K/cumm [facility] Basophil abs 0.04 0.00 - 0.10 K/cumm [facility] Neutrophil pct 72.7 % [facility] Comment: Interpretive Data Percent cell count reference ranges are not reported, since discordance with absolute values may lead to misinterpretation of CBC data. Current Interpretive Data was last revised on 2017. Imm gran pct 0.6 % [facility] Comment: Interpretive Data Percent cell count reference ranges are not reported, since discordance with absolute values may lead to misinterpretation of CBC data. Current Interpretive Data was last revised on 2017. Lymphocyte pct 17.8 % [facility] Comment: Interpretive Data Percent cell count reference ranges are not reported, since discordance with absolute values may lead to misinterpretation of CBC data. Current Interpretive Data was last revised on 2017. Monocyte pct 6.7 % [facility] Comment: Interpretive Data Percent cell count reference ranges are not reported, since discordance with absolute values may lead to misinterpretation of CBC data. Current Interpretive Data was last revised on 2017. Eosinophil pct 1.4 % [facility] Comment: Interpretive Data Percent cell count reference ranges are not reported, since discordance with absolute values may lead to misinterpretation of CBC data. Current Interpretive Data was last revised on 2017. Basophil pct 0.8 % [facility] Comment: Interpretive Data Percent cell count reference ranges are not reported, since discordance with absolute values may lead to misinterpretation of CBC data. Current Interpretive Data was last revised on 2017. Blood 02/06/2025 6:41 AM CDT 02/06/2025 6:55 AM CDT Rafiq Duarte MD LAB BLOOD ORDERABLES Final Result [facility] [id number] [place] [address] * (ABNORMAL) CBC with auto differential (02/06/2025 6:41 AM CDT) WBC 5.07 3.80 - 9.90 K/cumm Hgb 9.7(L) 13.0 - 17.5 g/dL [facility] Hct 31.7(L) 38.9 - 50.3 % [facility] Plt 69(L) 150 - 400 K/cumm [facility] MPV 12.4(H) 9.1 - 12.3 fL [facility] RBC 2.98(L) 4.30 - 5.80 M/cumm [facility] MCV 106.4(H) 81.3 - 96.4 fL [facility] MCH 32.6 27.1 - 33.3 pg [facility] MCHC 30.6(L) 32.3 - 35.7 g/dL [facility] RDW CV 15.4(H) 11.1 - 14.9 % [facility] RDW SD 60.6(H) 35.7 - 48.1 fL [facility] NRBC abs 0.00 0.00 - 0.01 K/cumm [facility] Blood 02/06/2025 6:41 AM CDT 02/06/2025 6:55 AM CDT us Rafiq Duarte MD LAB BLOOD ORDERABLES Final Result [facility] [address] [place] [address] * Basic metabolic panel (02/06/2025 6:41 AM CDT) Sodium 136 135 - 145 mmol/L Potassium, pl 4.2 3.3 - 4.9 mmol/L [facility] Chloride 103 97 - 110 mmol/L [facility] CO2 22 22 - 32 mmol/L [facility] Anion gap 11 2 - 15 mmol/L [facility] BUN 12 6 - 25 mg/dL [facility] Creatinine 0.91 0.80 - 1.30 mg/dL [facility] Glucose 189 70 - 199 mg/dL [facility] Comment: Interpretive Data Fasting glucose >/= 126 mg/dl is diagnostic for diabetes. Fasting is defined as no caloric intake for at least 8 hours. Fasting glucose between 100 mg/dl to 125 mg/dl is diagnostic of prediabetes. In a patient with classic symptoms of hyperglycemia or hyperglycemic crisis, a random glucose >/= 200 mg/dl is diagnostic for diabetes. In the absence of unequivocal hyperglycemia, results should be confirmed by repeat testing. The classification and Diagnosis of Diabetes Diabetes Care 202; 46: S19-S40. Current interpretive data was last revised 2022. Calcium 8.7 8.5 - 10.3 mg/dL [facility] Blood 02/06/2025 6:41 AM CDT 02/06/2025 6:55 AM CDT Rafiq Duarte MD LAB BLOOD ORDERABLES Final Result [facility] [address] [place] [address] * (ABNORMAL) POCT glucose (02/05/2025 8:18 PM CDT) Glucose, POC 289(H) 70 - 199 mg/dL POC Performer [id number] [facility] Blood 02/05/2025 8:18 PM CDT 02/05/2025 8:18 PM CDT us Jareer Otham Mims Duarte MD LAB POCT ORDERABLES - DEVICE Final Result Performing Organization Address [facility] Co de Phone Number [facility] [address] [facility] [address] * POCT glucose (02/05/2025 11:37 AM CDT) Glucose, POC 161 70 - 199 mg/dL POC Performer [id number] [facility] Blood 02/05/2025 11:3 7 AM CDT 02/05/2025 11:37 AM CDT Rafiq Duarte MD LAB POCT ORDERABLES - DEVICE Final Result Performing Organization Address [facility] Co ca Phone Number [facility] [phone] [facility] [address] * ECG 12 lead (02/05/2025 10:42 AM CDT) 02/05/2025 10:4 2 AM CDT Narrative [facility] - 02/05/2025 12:27 PM CDT Vent Rate: 61 bpm RR Interval: 972 msec OR Interval: 150 msec QRS Duration: 106 msec QT Interval: 516 msec QTC Interval: 520 msec P-R-T [place]: 29 - 14 - 46 degrees IMPRESSION: SINUS RHYTHM PROLONGED QT INTERVAL ABNORMAL ECG NO CHANGE FROM PREVIOUS TRACING NOTED Electronically Signed By: Cirilo Quinonez MD Rafiq Duarte MD ECG ORDERABLES Lizeth l Result Performing Organization Address [facility] Co de Phone Number [facility] * TRANSCATHETER AORTIC VALVE REPLACEMENT (TAVR) OPEN FEMORAL ART APPROACH, LEFT HEART CATHETERIZATION(LHC), AORTOGRAM THORACIC S&I, PERIPHERAL ANGIOGRAPHY (02/05/2025 9:41 AM CDT) Anatomical Region Laterality Modality X-Ray Angiograph y Narrative 02/06/2025 12:39 PM CDT TRANSCATHETER AORTIC VALVE REPLACEMENT (TAVR) REPORT DATE OF PROCEDURE: 02/05/2025 INDICATION FOR PROCEDURE: Severe, symptomatic aortic stenosis BRIEF CLINICAL HISTORY: This 74-year-old patient with history of hypertension, diabetes, paroxysmal atrial fibrillation was found to have severe aortic stenosis. Complains of dyspnea on exertion. Was found to have severe aortic stenosis and therefore he is here for TAVR procedure per PROCEDURES PERFORMED: Successful transcatheter aortic valve replacement (TAVR) using 265mm Resilia Khan pericardial tissue valve. Placement of temporary transvenous pacemaker Aortogram. Left heart catheterization with measurement of LVEDP and measurement of gradient across aortic valve. Distal abdominal aortogram with bilateral iliac runoff; selective right common femoral angiogram Deployment of two ProGlide suture mediated closure device at the left common femoral artery access site. SEDATION: Deep sedation CO-OPERATORS: Sky Alvarenga MD CT surgeon. ACCESS SITES: Right and left common femoral arteries; left common femoral vein PROCEDURE: After obtaining informed consent, patient was brought to the powerhouse laborer and prepped and draped in the usual sterile manner. Sedation administered anesthesia care was provided by anesthesiologist team. Right common femoral artery access was taken with micropuncture needle followed by insertion of a 4.5 Nigerien sheath over a 0.035 inch wire. Left common femoral artery access was taken with micropuncture needle followed by insertion of a 6 Nigerien sheath over a 0.035 inch wire. Left common femoral venous access was taken followed by insertion of a6 sheath. A balloon tipped transvenous pacemaker was placed through the venous sheath under fluoroscopic guidance and was position in the right ventricle. Pacing thresholds were checked. Two ProGlide suture mediated vascular closure devices were placed left common femoral arterial access site. The 4-Nigerien pigtail catheter was advanced into the aortic root through right common femoral sheath. The pigtail catheter was placed in the coronary cusp with some difficulty in getting advanced to the right coronary cusp. An aortogram was performed in the coplanar view. The 6-Nigerien arterial sheath on the left femoral artery was removed and a 14 Nigerien Khan sheath was placed after serial dilations. The sheath was advanced into the abdominal aorta under fluoroscopic guidance. The aortic valve was then crossed using a 0.35 straight-tipped Maxton wire with 5-Nigerien Al1 catheter. The AL1 catheter was advanced in the LV cavity, and then it was exchanged with a pigtail catheter using a long 035 exchange length wire. The 035 wire taken out, and was exchanged with Safari small wire. Patient received heparin for procedural anticoagulation, ACT was kept between 250-300. ACT was monitored throughout the procedure. Following this, the 26 mm Khan resilia valve delivery system was advanced under fluoroscopic guidance and was carefully maneuvered through aortic arch. The valve delivery catheter was advanced across the aortic valve under fluoroscopic guidance. Fluoroscopy was performed to ensure appropriate placement with aortography. The device was deployed while rapid ventricular pacing at 180 beats per minute. Transthoracic echocardiogram showed low gradients without complications or significant perivalvular regurgitation. The delivery system was removed. Then after that we went with 5 Nigerien pigtail catheter and retrieved the safari wire. Left heart catheterization then was done using this pigtail catheter with measurement of the LVEDP and measurement of gradient across aortic valve. Her LVEDP was 15 mm Hg. There was no gradient across aortic valve by the pigtail catheter measurement. The hemostasis was achieved by deployment of 2 ProGlide devices in the left femoral artery. Aortogram was performed which showed patent iliac arteries without any angiographically visible dissection. Manual compression was applied to the right groin and the 4.5 Nigerien sheath was removed manually. The The temporary pacemaker was removed. Patient remained sinus rhythm after the procedure, and was hemodynamically stable. Patient tolerated procedure well without any immediate procedural complications. CONCLUSIONS: TAVR using 26 Resilia Khan pericardial tissue valve. PLAN/RECOMMENDATIONS: Patient will be admitted to recovery room for monitoring. Continue aspirin and Plavix. Voice recognition software was used to complete this document, therefore, director of medical review variances may occur. Rafiq Duarte MD Rafiq Duarte MD CV CARDIAC CATH PROC EDURES Final Result * POCT glucose (02/05/2025 9:11 AM CDT) Glucose, POC 184 70 - 199 mg/dL POC Performer [id number] [facility] Blood 02/05/2025 9:11 AM CDT 02/05/2025 9:11 AM CDT Rafiq Duarte MD LAB POCT ORDERABLES - DEVICE Final Result [facility] [address] [place] [address] * (ABNORMAL) POC Activated Clotting Time, High Range (02/05/2025 9:08 AM CDT) ACT 274(H) 87 - 138 sec POC Performer [id number] [facility] Blood 02/05/2025 9:08 AM CDT 02/05/2025 9:08 AM CDT Rafiq Duarte MD LAB BLOOD ORDERABLES Final Result Performing Organization Address [facility]/ZIP Co de Phone Number [facility] [address] [facility] [place] [address] * Prepare RBC: 2 Units (02/05/2025 6:53 AM CDT) Product code [id number] [facility] Unit Number [id number] 5-H [facility] Product Blood Type OPOS [facility] Dispense Status RETURNED [facility] Product code [id number] Unit Number [id number] 6-F [facility] Product Blood Type OPOS [facility] Dispense Status RETURNED [facility] Blood 02/05/2025 6:53 AM CDT Narrative [facility] - 02/06/2025 12:14 AM CDT Other indication->TAVR Are special requirements needed? (All products are leukoreduced and CMV- safe)- >No Date required:-[id number] LRRBC # of [id number] Reasons:-Other (specify)} Rafiq Duarte MD BLOOD BANK PRODUCT O RDERABLES Final Result Performing Organization Address City/[facility]/ZIP Co de Phone Number [facility] [address] [facility] [place] [address] * Check Sample (02/05/2025 6:45 AM CDT) ABO Rh O Positive CH HCLL OTHER 02/05/2025 6:45 AM CDT 02/05/2025 6:54 AM CDT Rafiq Duarte MD LAB BLOOD ORDERABLES Final Result Performing Organization Address City/[facility] Co de Phone Number [facility] [address] [place] [address] CH * Potassium, whole blood (02/05/2025 6:36 AM CDT) Potassium, bld 3.8 3.3 - 4.9 mmol/L Comment: Interpretive Data This method is not able to assess for hemolysis, which may falsely increase potassium concentrations. If further testing is needed to evaluate this result, consider in-laboratory plasma potassium. Current Interpretive Data was last revised on 2022. Blood 02/05/2025 6:36 AM CDT 02/05/2025 6:51 AM CDT Gabriel Muse NP LAB BLOOD ORDERABLES Final Result Performing Organization Address [facility] Co de Phone Number [facility] [address] [place] [address] * Differential, auto (02/05/2025 6:36 AM CDT) Pathologist [facility] Neutrophil abs 3.03 1.50 - 6.50 K/cumm Imm gran abs 0.02 0.00 - 0.10 K/cumm [facility] Lymphocyte abs 0.95 0.80 - 3.30 K/cumm [facility] Monocyte abs 0.36 0.20 - 0.80 K/cumm [facility] Eosinophil abs 0.08 0.00 - 0.50 K/cumm [facility] Basophil abs 0.04 0.00 - 0.10 K/cumm [facility] Neutrophil pct 67.7 % [facility] Comment: Interpretive Data Percent cell count reference ranges are not reported, since discordance with absolute values may lead to misinterpretation of CBC data. Current Interpretive Data was last revised on 2017. Imm gran pct 0.4 % [facility] Comment: Interpretive Data Percent cell count reference ranges are not reported, since discordance with absolute values may lead to misinterpretation of CBC data. Current Interpretive Data was last revised on 2017. Lymphocyte pct 21.2 % [facility] Comment: Interpretive Data Percent cell count reference ranges are not reported, since discordance with absolute values may lead to misinterpretation of CBC data. Current Interpretive Data was last revised on 2017. Monocyte pct 8.0 % [facility] Comment: Interpretive Data Percent cell count reference ranges are not reported, since discordance with absolute values may lead to misinterpretation of CBC data. Current Interpretive Data was last revised on 2017. Eosinophil pct 1.8 % [facility] Comment: Interpretive Data Percent cell count reference ranges are not reported, since discordance with absolute values may lead to misinterpretation of CBC data. Current Interpretive Data was last revised on 2017. Basophil pct 0.9 % [facility] Comment: Interpretive Data Percent cell count reference ranges are not reported, since discordance with absolute values may lead to misinterpretation of CBC data. Current Interpretive Data was last revised on 2017. Blood 02/05/2025 6:36 AM CDT 02/05/2025 6:51 AM CDT Gabriel Muse NP LAB BLOOD ORDERABLES Final Result [facility] [id number] [place] [address] * (ABNORMAL) CBC with auto differential (02/05/2025 6:36 AM CDT) WBC 4.48 3.80 - 9.90 K/cumm Hgb 9.9(L) 13.0 - 17.5 g/dL [facility] Hct 32.4(L) 38.9 - 50.3 % [facility] Plt 76(L) 150 - 400 K/cumm [facility] MPV 11.6 9.1 - 12.3 fL [facility] RBC 3.07(L) 4.30 - 5.80 M/cumm [facility] MCV 105.5(H) 81.3 - 96.4 fL [facility] MCH 32.2 27.1 - 33.3 pg [facility] MCHC 30.6(L) 32.3 - 35.7 g/dL [facility] RDW CV 15.3(H) 11.1 - 14.9 % [facility] RDW SD 59.5(H) 35.7 - 48.1 fL [facility] NRBC abs 0.00 0.00 - 0.01 K/cumm [facility] Blood 02/05/2025 6:36 AM CDT 02/05/2025 6:51 AM CDT [facility] LAB BLOOD ORDERABLES Final Result Performing Organization Address City/[facility] Co de Phone Number [facility] [phone] [place] [address] * (ABNORMAL) Protime-INR (02/05/2025 6:36 AM CDT) PT 14.6(H) 9.7 - 13.0 sec INR 1.34(H) 0.90 - 1.20 [facility] Comment: Interpretive data Oral anticoagulant therapeutic ranges: Venous thromboembolism prophylaxis or treatment: 2.0-3.0 CARDIOLOGY Standard range: 2.0-3.0 High-intensity range: 2.5-3.5 Refer to indication-specific guidelines for appropriate target ranges for prosthetic heart valve replacement. Current interpretive data was last revised on 2019. Blood 02/05/2025 6:36 AM CDT 02/05/2025 6:51 AM CDT [facility] Pam LuAlmaz NP LAB BLOOD ORDERABLES Final Result Performing Organization Address City/[facility]/ZIP Co de Phone Number [facility] [phone] [place] [address] * POCT glucose (02/05/2025 6:20 AM CDT) Glucose, POC 186 70 - 199 mg/dL POC Performer [id number] [facility] Blood 02/05/2025 6:20 AM CDT 02/05/2025 6:20 AM CDT Rafqi Duarte MD LAB POCT ORDERABLES - DEVICE Final Result Performing Organization Address [facility] Co de Phone Number [facility] [address] [address] [place] [employer] [address] * (ABNORMAL) eGFR (01/31/2025 8:29 AM CDT) eGFR 59(L) >=60 mL/min/1. 73 m2 Comment: Interpretive Data Reference Interval Normal >/= 90 mL/min/1.73m2 Mildly decreased* 60 - 89 mL/min/1.73m2 Mildly to moderately decreased 45 - 59 mL/min/1.73m2 Moderately to severely decreased 30 - 44 mL/min/1.73m2 Severely decreased 15 - 29 mL/min/1.73m2 Kidney Failure < 15 mL/min/1.73m2 *Relative to young adult level Estimated glomerular filtration rate is determined by the 2020 CKD-EPI equation recommended by the National Kidney Foundation (A Unifying Approach to GFR Estimation: Recommendations of the NKF-ASK Task Force on Reassessing the Inclusion of Race in Diagnosing Kidney Disease, JASN 2020). The CKD-EPI equation should not be used for patients with unstable renal function and has not been validated in children and those over 70. Current interpretive data was last reviewed 2021. Blood 01/31/2025 8:29 AM CDT 01/31/2025 8:29 AM CDT Rafiq Duarte MD LAB BLOOD ORDERABLES Final Result Performing Organization Address City/[facility]/ZIP Co de Phone Number [facility] [address] [place] [address] * (ABNORMAL) Pro B-type natriuretic peptide (01/31/2025 8:29 AM CDT) NT-proBNP 445(H) <=300 pg/mL Comment: Interpretive Comments: A. Dyspnea in Acute Care Setting All Ages: < 300 pg/ml, acute heart failure unlikely. < 50 yrs: 300 - 450 pg/ml, further investigation warranted. > 450 pg/ml, acute heart failure likely. 50 - 74 yrs: 300 - 900 pg/ml, further investigation warranted. > 900 pg/ml, acute heart failure likely . > or = 75 yrs: 450 - 1800 pg/ml, further investigation warranted. > 1800 pg/ml, acute heart failure likely. B. Non-acute Setting < 75 yrs < 125 pg/ml, rules out heart failure. > or = 125 pg/ml, further investigation warranted. > or = 75 yrs < 450 pg/ml, rules out heart failure. > or = 450 pg/ml, further investigation warranted. - Knowledge of each individual patient's NT-proBNP range may be more useful than using similar cut-points for every patient. Please note that marked elevations in NT-proBNP levels may be observed in state other than Left Ventricular Congestive Failure, including: acute coronary syndromes, right heart strain/failure (including pulmonary embolism and cor pulmonale), critical illness, renal failure, as well as advanced age. - References: 1. Hanna ABBB et.al. Eur Heart J. 2006:27:330-337. 2. Radha RW, Patti TORREZ. J. AM Justo Cardiol: Cardiovasc Imag. 2009;2: 216- 225. Interpretive Data Last Revised Date: 2018. Blood 01/31/2025 8:29 AM CDT 01/31/2025 8:29 AM CDT Rafiq Duarte MD LAB BLOOD ORDERABLES Final Result GUNNAR [id number] [place] [address] * (ABNORMAL) aPTT (01/31/2025 8:29 AM CDT) aPTT 41(H) 28 - 38 sec Comment: Interpretive Data Heparin therapeutic range: 66.0 - 100.0 seconds. Range based on correlation with therapeutic heparin activity range of 0.3 - 0.7 Units/mL. Current interpretive data was last revised on 2023. Blood 01/31/2025 8:29 AM CDT 01/31/2025 8:29 AM CDT Rafiq Duarte MD LAB BLOOD ORDERABLES Final Result Performing Organization Address [facility] Co de Phone Number GUNNAR MÁRQUEZ [address] [address] [place] [address] * (ABNORMAL) Protime-INR (01/31/2025 8:29 AM CDT) PT 22.3(H) 9.7 - 13.0 sec INR 2.04(H) 0.90 - 1.20 [facility] Comment: Interpretive data Oral anticoagulant therapeutic ranges: Venous thromboembolism prophylaxis or treatment: 2.0-3.0 CARDIOLOGY Standard range: 2.0-3.0 High-intensity range: 2.5-3.5 Refer to indication-specific guidelines for appropriate target ranges for prosthetic heart valve replacement. Current interpretive data was last revised on 2019. Blood 01/31/2025 8:29 AM CDT 01/31/2025 8:29 AM CDT Rafiq Duarte MD LAB BLOOD ORDERABLES Final Result Performing Organization Address [facility] Co de Phone Number GUNNAR MÁRQUEZ [id number] [address] [place] [address] * (ABNORMAL) Comprehensive metabolic panel (01/31/2025 8:29 AM CDT) Sodium 140 135 - 145 mmol/L Potassium, pl 4.1 3.3 - 4.9 mmol/L [facility] Chloride 102 97 - 110 mmol/L [facility] CO2 26 22 - 32 mmol/L [facility] Anion gap 12 2 - 15 mmol/L [facility] BUN 18 6 - 25 mg/dL [facility] Creatinine 1.28 0.80 - 1.30 mg/dL [facility] Glucose 120 70 - 199 mg/dL [facility] Comment: Interpretive Data Fasting glucose >/= 126 mg/dl is diagnostic for diabetes. Fasting is defined as no caloric intake for at least 8 hours. Fasting glucose between 100 mg/dl to 125 mg/dl is diagnostic of prediabetes. In a patient with classic symptoms of hyperglycemia or hyperglycemic crisis, a random glucose >/= 200 mg/dl is diagnostic for diabetes. In the absence of unequivocal hyperglycemia, results should be confirmed by repeat testing. The classification and Diagnosis of Diabetes Diabetes Care 2021; 46: S19-S40. Current interpretive data was last revised 2022. Calcium 9.4 8.5 - 10.3 mg/dL [facility] Bilirubin, total 0.7 0.1 - 1.2 mg/dL [facility] Protein, pl 6.9 6.5 - 8.5 g/dL [facility] Albumin 3.9 3.5 - 5.0 g/dL [facility] Alk phos 62 40 - 130 Units/L [facility] ALT 54 7 - 55 Units/L [facility] AST 135(H) 10 - 50 Units/L [facility] Blood 01/31/2025 8:29 AM CDT 01/31/2025 8:29 AM CDT us Rafiq Duarte MD LAB BLOOD ORDERABLES Final Result GUNNAR [id number] [address] [place] [address] * X-ray chest 2 views (01/31/2025 8:21 AM CDT) Anatomical Region Laterality Modality Body, Chest N/A Computed Radiogr aphy 01/31/2025 8:57 AM CDT Impressions 01/31/2025 8:57 AM CDT No active disease. Electronically signed by: Juan Quiles M.D. Narrative 01/31/2025 8:57 AM CDT EXAMINATION: XR CHEST PA LATERAL 2 VIEWS HISTORY: The patient is a 74-year-old male who is having a pre-op chest radiograph. Comparison is made with the previous study dated 08/27/2023. TECHNIQUE: PA and lateral view of the chest. FINDINGS: Lungs clear. Cardiovascular structures unremarkable. Procedure Note Juan Quiles MD - 01/31/2025 EXAMINATION: XR CHEST PA LATERAL 2 VIEWS HISTORY: The patient is a 74-year-old male who is having a pre-op chest radiograph. Comparison is made with the previous study dated 08/27/2023. TECHNIQUE: PA and lateral view of the chest. FINDINGS: Lungs clear. Cardiovascular structures unremarkable. IMPRESSION: No active disease. Electronically signed by: Juan Quiles M.D. Rafiq Duarte MD IMG XR PROCEDURES Fi nal Result * Differential, auto (01/31/2025 7:43 AM CDT) Neutrophil abs 3.49 1.50 - 6.50 K/cumm Imm gran abs 0.02 0.00 - 0.10 K/cumm [facility] Lymphocyte abs 1.03 0.80 - 3.30 K/cumm [facility] Monocyte abs 0.29 0.20 - 0.80 K/cumm [facility] Eosinophil abs 0.07 0.00 - 0.50 K/cumm [facility] Basophil abs 0.03 0.00 - 0.10 K/cumm [facility] Neutrophil pct 70.8 % [facility] Comment: Interpretive Data Percent cell count reference ranges are not reported, since discordance with absolute values may lead to misinterpretation of CBC data. Current Interpretive Data was last revised on 2017. Imm gran pct 0.4 % [facility] Comment: Interpretive Data Percent cell count reference ranges are not reported, since discordance with absolute values may lead to misinterpretation of CBC data. Current Interpretive Data was last revised on 2017. Lymphocyte pct 20.9 % [facility] Comment: Interpretive Data Percent cell count reference ranges are not reported, since discordance with absolute values may lead to misinterpretation of CBC data. Current Interpretive Data was last revised on 2017. Monocyte pct 5.9 % [facility] Comment: Interpretive Data Percent cell count reference ranges are not reported, since discordance with absolute values may lead to misinterpretation of CBC data. Current Interpretive Data was last revised on 2017. Eosinophil pct 1.4 % [facility] Comment: Interpretive Data Percent cell count reference ranges are not reported, since discordance with absolute values may lead to misinterpretation of CBC data. Current Interpretive Data was last revised on 2017. Basophil pct 0.6 % [facility] Comment: Interpretive Data Percent cell count reference ranges are not reported, since discordance with absolute values may lead to misinterpretation of CBC data. Current Interpretive Data was last revised on 2017. Blood 01/31/2025 7:43 AM CDT 01/31/2025 8:28 AM CDT Rafiq Duarte MD LAB BLOOD ORDERABLES Final Result [facility] [id number] [address] [place] [address] * (ABNORMAL) CBC with auto differential (01/31/2025 7:43 AM CDT) WBC 4.93 3.80 - 9.90 K/cumm Hgb 10.4(L) 13.0 - 17.5 g/dL [facility] Hct 33.7(L) 38.9 - 50.3 % [facility] Plt 75(L) 150 - 400 K/cumm [facility] MPV 11.5 9.1 - 12.3 fL [facility] RBC 3.19(L) 4.30 - 5.80 M/cumm [facility] MCV 105.6(H) 81.3 - 96.4 fL [facility] MCH 32.6 27.1 - 33.3 pg [facility] MCHC 30.9(L) 32.3 - 35.7 g/dL [facility] RDW CV 15.5(H) 11.1 - 14.9 % [facility] RDW SD 60.2(H) 35.7 - 48.1 fL [facility] NRBC abs 0.00 0.00 - 0.01 K/cumm [facility] Blood 01/31/2025 7:43 AM CDT 01/31/2025 8:28 AM CDT Rafiq Duarte MD LAB BLOOD ORDERABLES Final Result Performing Organization Address [facility] Co de Phone Number GUNNAR [id number] [place] [address] * Type and screen (01/31/2025 7:43 AM CDT) Pathologist [facility] ABO Rh O Positive Marshall, indirect Negative GUNNAR Blood 01/31/2025 7:43 AM CDT 01/31/2025 8:34 AM CDT Narrative GUNNAR - 01/31/2025 9:25 AM CDT Has the patient had Daratumumab or Isatuximab in the past 6 months?->Unknown Rafiq Duarte MD LAB BLOOD BANK TEST ORDERABLES Final Result Performing Organization Address [facility] de Phone Number GUNNAR MÁRQUEZ [address] [place] [address] * (ABNORMAL) Hemoglobin A1c (01/31/2025 7:43 AM CDT) Pathologist [facility] Hgb A1C 5.7(H) 4.0 - 5.6 % Estimated Average Glucose 117 mg/dL G[facility] Comment: The ADA recommends reporting an estimated Average Glucose (eAG) with all Hemoglobin A1c results using the equation derived from a study of 507 normal and diabetic adults. Minority populations were underrepresented and children were not included. (Diabetes Care 31:6696-4712, 2008). The eAG is not equivalent to a fasting glucose. Blood 01/31/2025 7:43 AM CDT 01/31/2025 8:28 AM CDT Rafiq Duarte MD LAB BLOOD ORDERABLES Final Result Performing Organization Address [facility] de Phone Number GUNNAR [address] [facility] [address] * CT TAVR (12/31/2024 1:21 PM CDT) Anatomical Region Laterality Modality Chest N/A Computed Tomogra phy 01/01/2025 11:2 6 AM CDT Impressions 01/01/2025 9:06 PM CDT 1. Aortic valvular stenosis. 2. Aortic annulus, and abdominal aortic, common iliac, external iliac and femoral artery measurements in preparation for TAVR procedure as described above. 3. Aortic valve calcium score: Agatston 2814, Volume 2224 mm3. 4. Nonspecific groundglass nodule in the anterior left upper lobe. Recommend follow up of the Incidental lung nodule Additional Imaging In 6 Months with low-dose chest CT. 5. Mild splenomegaly of indeterminate significance. Dictated by: Mara Ragland MD The radiology attending physician has personally reviewed this study, and had reviewed and/or edited this written report and agrees with it. Electronically signed by: Curt Marques M.D. Narrative 01/01/2025 9:06 PM CDT EXAMINATION: Heart CT and CTA abdomen and pelvis with contrast. History: Severe aortic stenosis, pre-TAVR procedure. Technique: Heart CT and CT angiogram of the abdomen and pelvis performed during administration of 92 mL of Optiray 350, intravenously per TAVR Protocol. Images were transferred to an independent workstation for additional 3D post-processing. FINDINGS: Annulus and Thoracic Aortic Measurements (in systole): Aortic valve annulus: Area 479 mm2: circumference 25 mm; 29 mm maximum diameter x 23 mm minimum diameter. Sinuses of Valsalva: 38 mm diameter sagittal x 42 mm diameter coronal. Sinotubular junction: 35 mm diameter sagittal x 37 mm diameter coronal. Maximum diameter of ascending aorta: 44 sagittal x 44 coronal mm Aortic valve calcium score: Agatston 2814, Volume 2224 mm3. Coronary sinus heights: Right coronary sinus height: 25 Left coronary sinus height: 22 Non-coronary sinus height: 25 There is no left ventricular outflow tract calcification. There is no mitral annular calcification. Distance to RCA ostium from aortic valve annulus: 19 mm Distance to left main ostium from annulus: 17 mm Deployment angle: 4 MONTENEGRIN, 11 Caudal Coronary Arteries: Anomalous coronary artery course: No Left main atherosclerosis: moderate to severe LAD atherosclerosis: moderate to severe Circumflex atherosclerosis: moderate to severe RCA atherosclerosis: moderate to severe Abdominal Aortic and Pelvic Arterial Smallest Diameter Measurements (made from centerline curved MPRs): Infrarenal aorta: 20 mm x 17 mm Right common iliac artery: 11 mm x 12 mm. There is Moderate calcification. Left common iliac artery: 15 mm x 10 mm . There is Moderate calcification. There is Mild tortuosity of the bilateral common iliac arteries. This is more severe on the left. Right external iliac artery: 8 mm x 7 mm. There is no calcification. Left external iliac artery: 12 mm x 9 mm. There is no calcification. There is Moderate tortuosity of the bilateral external iliac arteries. This is more severe on the left. Right common femoral artery: 10 mm. There is Moderate calcification. Left common femoral artery: 9 mm. There is Moderate calcification. There is no tortuosity of the bilateral femoral arteries. Other findings: Area of groundglass/reticulation in the anterior left upper lobe is new from 08/27/2023 and indeterminate. Recommend correlation with history of infection. Alternatively a 6 month follow-up with noncontrast chest CT can be considered for further evaluation. No effusion. No suspicious pulmonary nodules. Surgical clips noted in the right hemicolon. Mixed and calcified plaques in the proximal abdominal aorta without significant stenosis. Abdominal aorta is nonaneurysmal. Mild splenomegaly. Trace fluid in the pelvis. Penile implant reservoir, pump and tubing noted in the pelvis and perineum. No suspicious osseous lesion. Procedure Note Curt Marques MD PhD - 01/01/2025 EXAMINATION: Heart CT and CTA abdomen and pelvis with contrast. History: Severe aortic stenosis, pre-TAVR procedure. Technique: Heart CT and CT angiogram of the abdomen and pelvis performed during administration of 92 mL of Optiray 350, intravenously per TAVR Protocol. Images were transferred to an independent workstation for additional 3D post-processing. FINDINGS: Annulus and Thoracic Aortic Measurements (in systole): Aortic valve annulus: Area 479 mm2: circumference 25 mm; 29 mm maximum diameter x 23 mm minimum diameter. Sinuses of Valsalva: 38 mm diameter sagittal x 42 mm diameter coronal. Sinotubular junction: 35 mm diameter sagittal x 37 mm diameter coronal. Maximum diameter of ascending aorta: 44 sagittal x 44 coronal mm Aortic valve calcium score: Agatston 2814, Volume 2224 mm3. Coronary sinus heights: Right coronary sinus height: 25 Left coronary sinus height: 22 Non-coronary sinus height: 25 There is no left ventricular outflow tract calcification. There is no mitral annular calcification. Distance to RCA ostium from aortic valve annulus: 19 mm Distance to left main ostium from annulus: 17 mm Deployment angle: 4 MONTENEGRIN, 11 Caudal Coronary Arteries: Anomalous coronary artery course: No Left main atherosclerosis: moderate to severe LAD atherosclerosis: moderate to severe Circumflex atherosclerosis: moderate to severe RCA atherosclerosis: moderate to severe Abdominal Aortic and Pelvic Arterial Smallest Diameter Measurements (made from centerline curved MPRs): Infrarenal aorta: 20 mm x 17 mm Right common iliac artery: 11 mm x 12 mm. There is Moderate calcification. Left common iliac artery: 15 mm x 10 mm . There is Moderate calcification. There is Mild tortuosity of the bilateral common iliac arteries. This is more severe on the left. Right external iliac artery: 8 mm x 7 mm. There is no calcification. Left external iliac artery: 12 mm x 9 mm. There is no calcification. There is Moderate tortuosity of the bilateral external iliac arteries. This is more severe on the left. Right common femoral artery: 10 mm. There is Moderate calcification. Left common femoral artery: 9 mm. There is Moderate calcification. There is no tortuosity of the bilateral femoral arteries. Other findings: Area of groundglass/reticulation in the anterior left upper lobe is new from 08/27/2023 and indeterminate. Recommend correlation with history of infection. Alternatively a 6 month follow-up with noncontrast chest CT can be considered for further evaluation. No effusion. No suspicious pulmonary nodules. Surgical clips noted in the right hemicolon. Mixed and calcified plaques in the proximal abdominal aorta without significant stenosis. Abdominal aorta is nonaneurysmal. Mild splenomegaly. Trace fluid in the pelvis. Penile implant reservoir, pump and tubing noted in the pelvis and perineum. No suspicious osseous lesion. IMPRESSION: 1. Aortic valvular stenosis. 2. Aortic annulus, and abdominal aortic, common iliac, external iliac and femoral artery measurements in preparation for TAVR procedure as described above. 3. Aortic valve calcium score: Agatston 2814, Volume 2224 mm3. 4. Nonspecific groundglass nodule in the anterior left upper lobe. Recommend follow up of the Incidental lung nodule Additional Imaging In 6 Months with low-dose chest CT. 5. Mild splenomegaly of indeterminate significance. Dictated by: Mara Ragland MD The radiology attending physician has personally reviewed this study, and had reviewed and/or edited this written report and agrees with it. Electronically signed by: Curt Marques M.D. Rafiq Duarte MD IMG CT PROCEDURES Fi nal Result * POCT glucose (12/11/2024 12:06 PM CDT) Glucose, POC 144 70 - 199 mg/dL POC Performer [phone] GUNNAR MÁRQUEZ Blood 12/11/2024 12:0 6 PM CDT 12/11/2024 12:06 PM CDT us Rafiq Duarte MD LAB POCT ORDERABLES - DEVICE Final Result G[facility]NAR M[facility]QUE[id number] [address] [place] [address] * PERIPHERAL ANGIOGRAPHY, LEFT CORONARY ANGIOGRAPHY (12/11/2024 11:48 AM CDT) Anatomical Region Laterality Modality X-Ray Angiograph y Narrative 12/11/2024 12:07 PM CDT CARDIAC CATHETERIZATION REPORT Ehsan Dubois IP ENCOUNTER: @CSN@ Date of Procedure: 12/11/2024 BIRTHDATE: 1950 HAM TRIMMER: Rafiq Durate MD PREPROCEDURE DIAGNOSES: This 74-year-old patient with history of hypertension, hyperlipidemia, paroxysmal atrial fibrillation, thrombocytopenia and severe aortic stenosis . He has dyspnea on exertion. Plan for left hip surgery and we decided to bring him in for coronary anatomy before hip surgery and in the preparation for TAVR. PROCEDURES PERFORMED: Moderate sedation that started at 11:00 a.m. and ended at 11:48 a.m. with total sedation 48 minutes using 2mg of Versed and 25mcg of fentanyl. The registered nurse was manuela roche. Selective left and right coronary angiogram. Peripheral angiogram of the distal aorta, bilateral common, external iliacs and bilateral common femoral arteries. Selective Right common femoral arterial angiogram. Deployment 6 Nigerien Angio-Seal. FINDINGS: Left main with no significant obstruction. Left anterior descending artery minimal irregularities. Complex artery is large and codominant and has minimal irregularities. After takes off from the left main gives rise to a medium-size OM 1 that has minor irregularities. Right coronary artery is large and codominant and in the midportion 50%. Peripheral angiogram shows no significant disease in the iliacs. There was significant tortuosity in the left common iliac. There is non flow-limiting dissection in the right external iliac. COMPLICATIONS: None ESTIMATED BLOOD LOSS: 10 mL PROCEDURAL DESCRIPTION: After informed consent patient was brought into the powerhouse laborer where she was draped and prepped in the usual manner. Moderate sedation was given and the right groin infiltrated using 1% lidocaine. Five Nigerien sheath was obtained using micropuncture needle and modified Seldinger technique. We initially had to use an Amplatzer stiff wire to insert the 5 Nigerien sheath. Then after that we had to use a Glidewire to navigate the tortuosity. Selective right coronary angiogram was done using JR4 catheter with the tip of the catheter placed in the right coronary artery. We tried to engage the main using JL5 and did not work and then we had to upgrade the right groin sheath to 6 Nigerien and using the 6 Nigerien JL5 diagnostic catheter. After that 5 Nigerien pigtail catheter was advanced to the distal aortogram peripheral angiogram was done. Right common femoral arterial angiogram was done and deployed 6 Nigerien Angio-Seal. Access site: Right common femoral artery. Hemostasis: 6 Nigerien Angio-Seal. CONCLUSIONS Tortuosity in the right external iliac and we had to use Glidewire to navigate tortuosity. Stiff wire was used to insert the femoral sheath due to abundant pannus. 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 Tortuosity in the left common iliac artery. Mid 50% in the RCA. PLAN Proceed with the plans for TAVR. us Rafiq Duarte MD CV CARDIAC CATH PROC EDURES Final Result * eGFR (12/11/2024 9:52 AM CDT) eGFR 86 >=60 mL/min/1. 73 m2 Comment: Interpretive Data Reference Interval Normal >/= 90 mL/min/1.73m2 Mildly decreased* 60 - 89 mL/min/1.73m2 Mildly to moderately decreased 45 - 59 mL/min/1.73m2 Moderately to severely decreased 30 - 44 mL/min/1.73m2 Severely decreased 15 - 29 mL/min/1.73m2 Kidney Failure < 15 mL/min/1.73m2 *Relative to young adult level Estimated glomerular filtration rate is determined by the 2020 CKD-EPI equation recommended by the National Kidney Foundation (A Unifying Approach to GFR Estimation: Recommendations of the NKF-ASK Task Force on Reassessing the Inclusion of Race in Diagnosing Kidney Disease, JASN 202). The CKD-EPI equation should not be used for patients with unstable renal function and has not been validated in children and those over 70. Current interpretive data was last reviewed 2021. Blood 12/11/2024 9:52 AM CDT 12/11/2024 10:04 AM CDT us Rafiq Duarte MD LAB BLOOD ORDERABLES Final Result [facility] [id number] [address] [place] [address] * Differential, auto (12/11/2024 9:52 AM CDT) Neutrophil abs 3.52 1.50 - 6.50 K/cumm Imm gran abs 0.05 0.00 - 0.10 K/cumm [facility] Lymphocyte abs 1.10 0.80 - 3.30 K/cumm [facility] Monocyte abs 0.30 0.20 - 0.80 K/cumm [facility] Eosinophil abs 0.10 0.00 - 0.50 K/cumm [facility] Basophil abs 0.05 0.00 - 0.10 K/cumm [facility] Neutrophil pct 68.6 % [facility] Comment: Interpretive Data Percent cell count reference ranges are not reported, since discordance with absolute values may lead to misinterpretation of CBC data. Current Interpretive Data was last revised on 2017. Imm gran pct 1.0 % [facility] Comment: Interpretive Data Percent cell count reference ranges are not reported, since discordance with absolute values may lead to misinterpretation of CBC data. Current Interpretive Data was last revised on 2017. Lymphocyte pct 21.5 % [facility] Comment: Interpretive Data Percent cell count reference ranges are not reported, since discordance with absolute values may lead to misinterpretation of CBC data. Current Interpretive Data was last revised on 2017. Monocyte pct 5.9 % [facility] Comment: Interpretive Data Percent cell count reference ranges are not reported, since discordance with absolute values may lead to misinterpretation of CBC data. Current Interpretive Data was last revised on 2017. Eosinophil pct 2.0 % [facility] Comment: Interpretive Data Percent cell count reference ranges are not reported, since discordance with absolute values may lead to misinterpretation of CBC data. Current Interpretive Data was last revised on 2017. Basophil pct 1.0 % [facility] Comment: Interpretive Data Percent cell count reference ranges are not reported, since discordance with absolute values may lead to misinterpretation of CBC data. Current Interpretive Data was last revised on 2017. Blood 12/11/2024 9:52 AM CDT 12/11/2024 10:04 AM CDT us Rafiq Duarte MD LAB BLOOD ORDERABLES Final Result [facility] [id number] [address] [place] [address] * (ABNORMAL) CBC with auto differential (12/11/2024 9:52 AM CDT) WBC 5.12 3.80 - 9.90 K/cumm Hgb 10.8(L) 13.0 - 17.5 g/dL [facility] Hct 34.7(L) 38.9 - 50.3 % [facility] Plt 81(L) 150 - 400 K/cumm [facility] MPV 13.4(H) 9.1 - 12.3 fL [facility] RBC 3.37(L) 4.30 - 5.80 M/cumm [facility] MCV 103.0(H) 81.3 - 96.4 fL [facility] MCH 32.0 27.1 - 33.3 pg [facility] MCHC 31.1(L) 32.3 - 35.7 g/dL [facility] RDW CV 14.9 11.1 - 14.9 % [facility] RDW SD 57.0(H) 35.7 - 48.1 fL [facility] NRBC abs 0.00 0.00 - 0.01 K/cumm [facility] Blood 12/11/2024 9:52 AM CDT 12/11/2024 10:04 AM CDT Narrative [facility] 12/11/2024 11:09 AM CDT If most recent labs were drawn prior to 4 AM, draw only prior to initiating procedure. us Rafiq Duarte MD LAB BLOOD ORDERABLES Final Result [facility] [id number] [place] [address] * Basic metabolic panel (12/11/2024 9:52 AM CDT) Sodium 135 135 - 145 mmol/L Potassium, pl 4.2 3.3 - 4.9 mmol/L [facility] Chloride 102 97 - 110 mmol/L [facility] CO2 25 22 - 32 mmol/L [facility] Anion gap 8 2 - 15 mmol/L [facility] BUN 11 6 - 25 mg/dL [facility] Creatinine 0.94 0.80 - 1.30 mg/dL [facility] Glucose 182 70 - 199 mg/dL [facility] Comment: Interpretive Data Fasting glucose >/= 126 mg/dl is diagnostic for diabetes. Fasting is defined as no caloric intake for at least 8 hours. Fasting glucose between 100 mg/dl to 125 mg/dl is diagnostic of prediabetes. In a patient with classic symptoms of hyperglycemia or hyperglycemic crisis, a random glucose >/= 200 mg/dl is diagnostic for diabetes. In the absence of unequivocal hyperglycemia, results should be confirmed by repeat testing. The classification and Diagnosis of Diabetes Diabetes Care 202; 46: S19-S40. Current interpretive data was last revised 2022. Calcium 9.0 8.5 - 10.3 mg/dL [facility] Blood 12/11/2024 9:52 AM CDT 12/11/2024 10:04 AM CDT us Rafiq Duarte MD LAB BLOOD ORDERABLES Final Result [facility] [address] [place] [address] * POCT glucose (12/11/2024 9:21 AM CDT) Glucose, POC 178 70 - 199 mg/dL POC Performer [id number] [facility] Blood 12/11/2024 9:21 AM CDT 12/11/2024 9:21 AM CDT us Rafiq Duarte MD LAB POCT ORDERABLES - DEVICE Final Result Performing Organization Address City/[facility] Co de Phone Number [facility] [address] [place] [address] * POCT lipid panel (10/15/2024 12:07 PM MACHINE OPERATOR CANE CUTTER) Cholesterol, POC 188 mg/dL Comment:GLU = 199 HDL, POC N/A mg/dL Triglycerides, POC 505 mg/dL LDL Cholesterol POC N/A mg/dL Chol/HDL Ratio, POC N/A Non-HDL Cholesterol, POC N/A mg/dL Cholesterol Total, POC 188 mg/dL Capillary blood 10/15/2024 1 2:07 PM MACHINE OPERATOR CANE CUTTER us Rafiq Duarte MD POINT OF CARE TEST O RDERABLES Final Result from Last 3 Months or Most Recently Relevant to Health Maintenance Insurance [facility] MED[facility] ADVANT[facility] Advance Directives For more information, please contact: [phone] * Full Code (Latest Code Status on File) Date Activated Date Inactivated Comments 02/05/2025 10:52 AM 02/06/2025 2:51 PM * Full Code Date Activated Date Inactivated Comments 12/11/2024 12:18 PM 12/11/2024 6:07 PM * Full Code Date Activated Date Inactivated Comments 08/27/2023 8:04 PM 08/29/2023 4:44 PM * Full Code Date Activated Date Inactivated Comments 01/12/2021 11:36 AM 01/13/2021 10:58 PM Care Teams Raisin Separator Operator Relationship Specialty Start [place] [address] [place] [address] [address] [address] PCP - General Internal Medicine 11/19/24 [place] [id number] [address] [facility] [address] [place] [address] Consulting Physician Urology 01/13/21 Rafiq Duarte MD [address] [facility] [address], [place] [address] Consulting Physician Interventional Cardiology 08/29/23
--- OUTSIDE RECORDS SUMMARY | 2025-02-16 17:42 | XMS_ITS | Clinical Summary ---
Author Organization [facility] Address [address] [place] [address] Care Team Providers Care International Sales Manager Name Role Phone Surendra Henriquez MD Primary Care Provider [phone] Kulwinder Cotter MD Unavailable [phone] Becca Dhaliwal HOT PACKER-DIRECTOR BIOSTATISTICS Unavailable [phone] Source Comments [facility],non-owned Affiliates and Associated Physician Practices is amultiple site organization consisting of ambulatory clinics and hospital sitesin [place], [place], [place] and [place]. This disclosure is being madepursuant to the Care Everywhere program and may not contain all information available regarding this patient. Last updated 18.[facility] Allergies Active Allergy Reactions Criticality Noted Date Comments Morphine Vomiting Low 05/19/2020 Reaction: GI;, , Codeine 07/12/2016 Niacin 07/12/2016 Medications * Be aware that medications may not be up to date on this document. Alwaysverify current medications with the patient. Multiple Vitamins-Mineral s (LESLIE MULTIVITAMIN FOR MEN PO) Take 1 Tab by mouth once daily Active blood glucose (ONETOUCH ULTRA TEST STRIPS) test strip Use 1 strip once daily 100 strip 8 Active ONE TOUCH LANCETS MISC Test once daily 200 Each 8 Active tamsulosin (FLOMAX) 0.4 MG capsule Take 1 (one) capsule by mouth once daily 1 Active amiodarone (Cordarone) 200 MG tablet Take 1 (one) tablet by mouth once daily 3 Active Eliquis 5 MG tablet Take 1 (one) tablet by mouth every 12 hours 3 Active metFORMIN (Glucophage) 500 MG tablet TAKE 2 TABLETS BY MOUTH TWICE DAILY 360 tablet 3 4 Active allopurinol (Zyloprim) 300 MG tablet TAKE 1 TABLET BY MOUTH ONCE DAILY 90 tablet 3 4 Active fenofibric acid (Trilipix) 135 MG capsule TAKE 1 CAPSULE BY MOUTH DAILY . SWALLOW WHOLE. DO NOT CRUSH, CHEW, OR BREAK OPEN 90 capsule 3 4 Active Additional Information Patient not taking.Reported on 01/29/2025 propranolol (Inderal) 10 MG tablet Take 1 (one) tablet by mouth 3 times daily 270 tablet 4 4 Active finasteride (Proscar) 5 MG tablet TAKE 1 TABLET BY MOUTH EVERY DAY 90 tablet 1 4 Active Additional Information Patient not taking.Reported on 01/29/2025 glipiZIDE (Glucotrol) 5 MG tablet TAKE 1 TABLET BY MOUTH TWICE DAILY 180 tablet 3 4 Active fenofibrate (Tricor) 145 MG tablet TAKE 1 TABLET BY MOUTH EVERY DAY 90 tablet 1 4 Active Additional Information Patient not taking.Reported on 01/29/2025 loratadine (Claritin) 10 MG tablet Take 1 (one) tablet by mouth once daily 90 tablet 4 5 Active pantoprazole EC (Protonix) 20 MG tablet Take 1 (one) tablet by mouth once daily 30 tablet 5 Active furosemide (Lasix) 40 MG tablet Take 1 (one) tablet by mouth once daily 5 Active memantine (Namenda) 10 MG tablet Take 1 (one) tablet by mouth 2 times daily 180 tablet 3 5 Active simvastatin (Zocor) 20 MG tablet Take 1 (one) tablet by mouth once daily 90 tablet 3 5 Active escitalopram (Lexapro) 20 MG tablet Take 1 (one) tablet by mouth once daily 90 tablet 1 5 Active Additional Information Patient not taking.Reported on 01/29/2025 ARIPiprazole (Abilify) 5 MG tablet Take 1 (one) tablet by mouth once daily 90 tablet 1 5 Active Active Problems Problem Noted Date Diagnosed Date Cirrhosis of liver without ascites 02/12/2025 Portal hypertension 02/12/2025 Gastric ulcer with hemorrhage 02/12/2025 Elevated liver enzymes 11/06/2024 Black stools 11/06/2024 Urinary tract infection without hematuria 2023 Infected abrasion of right leg 10/28/2023 Venous stasis 10/28/2023 PAF (paroxysmal atrial fibrillation) 08/27/2023 Aortic valve stenosis 07/20/2022 Depression 09/28/2021 Memory loss 09/28/2021 Insomnia 09/28/2021 MATY (acute kidney injury) 02/12/2021 Acute right-sided low back pain 04/12/2018 Hyperlipidemia Hypertension Diabetes mellitus CAD (coronary artery disease) Obesity (BMI 35.0-39.9 without comorbidity) Resolved Problems Problem Noted Date Diagnosed Date Resolved Date Constipation 11/06/2024 12/04/2024 Encounters Date Type Department Care Team Description 02/12/2025 11:00 AM CDT Office Visit [place] [address], [address] [place] [phone] Ramon Flynn MD Cirrhosis of liver without ascites, unspecified hepatic cirrhosis type (HCC) (Primary Dx); Portal hypertension (HCC); Gastric ulcer with hemorrhage, unspecified chronicity 02/12/2025 Travel 02/03/2025 Results Follow-Up [place] [address], [address] [place] [phone] Ramon Flynn MD Results 02/01/2025 Orders Only [facility] [address], [address] [place] [phone] Ramon Flynn MD Black stools; Elevated liver enzymes 01/29/2025 10:20 AM CDT Office Visit [facility] [address] [place] [phone] Surendra Henriquez MD Smith, Brian C, MD Thrombocytopenia (Primary Dx); Anemia, unspecified type; Bleeding esophageal varices, unspecified esophageal varices type (HCC); MGUS (monoclonal gammopathy of unknown significance); Thrombocyte disorder (HCC) 01/29/2025 [facility] [employer] 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 Pt wants form mailed out. /) 01/14/2025 11:00 AM CDT Office Visit [address] [address] Surendra Henriquez MD Primary hypertension (Primary Dx); PAF (paroxysmal atrial fibrillation) (HCC); Mixed hyperlipidemia; Recurrent major depressive disorder, in partial remission; Aortic valve stenosis, etiology of cardiac valve disease unspecified; Type 2 diabetes mellitus with diabetic polyneuropathy, without long-term current use of insulin (HCC) 01/14/2025 Travel 01/11/2025 6:02 AM CDT - 01/11/2025 10:26 AM CDT Hospital Encounter [facility] [address] [place] [address] Kulwinder Cotter MD Unknown, Provider [facility] Discharge Disposition: Home or Self Care 01/09/2025 Telephone [facility] [address] [place] [address] Pita Rahman RN Procedure (Pre-Call) 01/08/[address] [address] Surendra Henriquez MD Question 01/04/2025 Telephone [facility] [address] [place] [address] Pita Rahman RN Procedure (Pre-Call) 01/03/2025 Travel 12/31/2024 Telephone [facility] [address] [place] [address] Pita Rahman RN Procedure (Pre-Call) 12/31/2024 Refill [facility] [id number] [place] [address] [address] [place] [address] Surendra Henriquez MD Refill Request 12/05/2024 1:00 PM CDT Office Visit [address] [place] [phone] Kulwinder Cotter MD Thrombocytopenia (Primary Dx); Anemia, unspecified type; Bleeding esophageal varices, unspecified esophageal varices type (HCC); MGUS (monoclonal gammopathy of unknown significance) 11/26/2024 Refill [facility] [id number] [place] [address] [address] [place] [phone] Surendra Henriquez MD Refill Request 11/21/2024 11:40 AM CDT Office Visit [address] [place] [phone] Kulwinder Cotter MD Thrombocytopenia (Primary Dx); Anemia, unspecified type; Bleeding esophageal varices, unspecified esophageal varices type 11/21/[address], [facility] [address] [place] [phone] Ramon Flynn MD Results 11/16/2024 Telephone [facility] [address] [place] [address] [address] [place] [address] Surendra Henriquez MD Breathing Problem from Last 3 Months Immunizations Immunization Administration Dates Next Due FLU VACCINE TRI IIV3 SPLIT P F IM (FLUVIRIN) 07/12/2016 07/12/2017 INFLUENZA VACCINE 10/28/2023,10/25/2022,06/30/20 21 INFLUENZA VACCINE, ADJUVANTE D, TRIV. (FLUAD TRIVALENT; 65Y+) (AIIV3) 10/19/2024 INFLUENZA VACCINE, CELL CULT URE, QUADR. (FLUCELVAX QUADRIVALENT; 6MO+), 0.5 ML (CCIIV4) 07/04/2017 07/04/2018 INFLUENZA VACCINE, HIGH-DOSE , QUADR. (FLUZONE HIGH-DOSE QUADRIVALENT; 65Y+), 0.7 ML (HD-IIV4) 08/13/2019 08/13/2020 PNEUMOCOCCAL PCV20 CONJ VAC IM 10/25/2022 PNEUMOCOCCAL PPSV23 08/13/2019 RSV ABRYSVO PREG OR 60y+ 0.5mL 10/13/2023 TDAP (7yrs+) 06/30/2021 ZOSTER HISTORIC VACCINE 06/30/2021 ZOSTER VACCINE, LIVE 07/12/2016 Zoster Hzv Vacc Recombinant Inj Im 10/25/2022 Family History Medical History Relation Name Comments Multiple Sclerosis Father Alzheimer's Disease Mother Relation Name Status Comments Father Mother Social History Tobacco Use Types Packs/Day Years Used Date Smoking Tobacco: Former Cigarettes Q uit: 1985 Smokeless Tobacco: Never Tobacco Cessation:Counseling Given: Not Answered Alcohol Use Standard Drinks/Week Comments No 0 (1 standard drink = 0.6 oz pur e alcohol) PHQ-2 Answer Date Recorded Patient Health Questionnaire-2 Score 0 01/29/2025 Sex and Gender Information Value Date Recorded Sex Assigned at Not on file Legal Sex Male 3:09 PM CDT Gender Identity Not on file Sexual Orientation Not on file Last Filed Vital Signs Vital Sign Reading Time Taken Comments Blood Pressure 124/64 02/12/2025 11:05 AM CDT Pulse 70 02/12/2025 11:05 AM CDT Temperature 36.7 C (98.1 F) 01/29/2025 10:31 AM CDT Respiratory Rate 18 02/12/2025 11:05 AM CDT Oxygen Saturation 96% 02/12/2025 11:05 AM CDT Inhaled Oxygen Concentration 97% 03/05/2018 1 2:20 PM CDT Weight 102.1 kg (225 lb) 02/12/2025 11:05 AM CDT Height 172.7 cm (5' 8) 01/29/2025 10:31 AM CDT Body Mass Index 34.21 01/29/2025 10:31 AM CDT Plan of Treatment Upcoming Encounters Date Type Department Care Team (Late st Contact Info) Description 04/23/2025 11:30 AM CDT Office Visit [facility] [id number] [place] [address] [address] [place] [address] [place] [address] [facility] [address] [place] [address] 07/03/2025 12:45 PM CDT Office Visit [facility] [place] [address] [address] [place] [address] [place] [address] [place] [address] 08/06/2025 1:00 PM CARPET INSTALLATION SPECIALIST Documentation [facility] [address] [facility] [address] [place] [address] 08/13/2025 10:40 AM CARPET INSTALLATION SPECIALIST Office Visit [place] [id number] [facility] [address] [place] [address] [place] [address] [facility] [address] [place] [address] Health Maintenance Due Date Last Done Comments COLOGUARD (AGES 45-75) - COLON CA SCREENING 1950 CT COLONOGRAPHY - COLON CA SCREENING 1950 FIT - COLON CA SCREENING 1950 FLEX SIG - COLON CA SCREENING 1950 HEPATITIS B VACCINE (1 of 3 - Risk 3-dose series) 2011 DIABETES RETINOPATHY SCREENING 07/12/2016 AAA SCREENING 2016 ZOSTER VACCINE (3 of 3) 12/20/2022 10/25/19, 06/30/2021, 07/12/2016 COVID-19 VACCINE ( season) 2024 11/13/2020 DIABETES - URINE PROTEIN SCREENING 09/05/2024 04/07/2021 MEDICARE AWV CALENDAR YEAR 2024 DIABETES-FOOT EXAM WITH MONOFILAMENT 10/28/2024 10/28/2023 PROSTATE CA SCREENING 04/11/2025 04/11/2024 , 10/25/2022, 05/19/2020, Additional history exists DIABETES-HGB A1C 08/03/2025 01/31/2025, 08/2025, 04/11/2024, Additional history exists DIABETES-SERUM CREATININE 02/01/20262024, 01/11/2025, 11/02/2024, Additional history exists DTAP/TDAP/TD VACCINES (2 - Td or Tdap) 06/30/2031 06/30/2021 COLON MONITORING 11/08/2034 11/08/2024, 11/08/2024 COLONOSCOPY - COLON CA SCREENING 11/08/2034 11/08/2024, 11/08/2024 Colorectal Cancer Screening 11/08/2034 PNEUMOCOCCAL VACCINE 50+ Completed 10/25/2022, 12/05/2019 Respiratory Syncytial Virus (RSV) Vaccine Pt: or over 60 yrs Completed 10/13/2023 DEPRESSION SCREENING Completed 09/24/2024, 04/10/20 INFLUENZA VACCINE Completed 10/19/2024, , 10/25/2022, Additional history exists HEPATITIS C SCREENING Discontinued 11/06/2024 HIB VACCINE Aged Out No longer eligi ble based on patient's age to complete this topic HPV VACCINE Aged Out No longer eligi ble based on patient's age to complete this topic MENINGOCOCCAL (Group B) VACCINE SHARED DECISION-MAKING Aged Out No longer eligible based on patient's age to complete this topic MENINGOCOCCAL GROUPS A/C/Y/W VACCINE Aged Out No longer eligible based on patient's age to complete this topic Procedures Procedure Name Priority Date/Time Associated Diagnosis Comments COMPREHENSIVE METABOLIC PANEL Routine 02/01/2025 1:42 PM CDT Elevated liver enzymes CBC W AUTO DIFFERENTIAL Routine 02/01/2025 1:41 PM CDT Black stools IR BONE MARROW BIOPSY Routine 01/11/2025 9:11 AM CDT Thrombocytopenia Anemia, unspecified type MGUS (monoclonal gammopathy of unknown significance) BONE MARROW BIOPSY (STL) Routine 01/11/2025 8:58 AM CDT Thrombocytopenia Anemia, unspecified type MGUS (monoclonal gammopathy of unknown significance) PAF (paroxysmal atrial fibrillation) (HCC) MATY (acute kidney injury) Black stools Elevated liver enzymes Venous stasis Memory loss Obesity (BMI 35.0-39.9 without comorbidity) FLOW CYTOMETRY PANEL Routine 01/11/2025 8:58 AM CDT Thrombocytopenia PT-INR STAT 01/11/2025 8:04 AM CDT Thrombocytopenia CBC W AUTO DIFFERENTIAL BRANDIE 01/11/2025 7:28 AM CDT Thrombocytopenia BASIC METABOLIC PANEL (CALCIUM TOTAL) BRANDIE 01/11/2025 7:28 AM CDT Thrombocytopenia T4 FREE Routine 11/21/2024 11:55 AM CDT CBC W AUTO DIFFERENTIAL (CANCER CARE) Routine 11/21/2024 11:55 AM CDT Thrombocytopenia Anemia, unspecified type Bleeding esophageal varices, unspecified esophageal varices type PROTEIN ELECTRO+ANGELI+FREE LIGHT CHAINS Routine 11/21/2024 11:55 AM CDT Thrombocytopenia Anemia, unspecified type Bleeding esophageal varices, unspecified esophageal varices type VITAMIN B12 FOLATE PANEL Routine 11/21/2024 11:55 AM CDT Thrombocytopenia Anemia, unspecified type Bleeding esophageal varices, unspecified esophageal varices type TSH REFLEX FREE T4 Routine 11/21/2024 11 :55 AM CDT Thrombocytopenia Anemia, unspecified type Bleeding esophageal varices, unspecified esophageal varices type ZINC BLOOD Routine 11/21/2024 11:55 AM CDT Thrombocytopenia Anemia, unspecified type Bleeding esophageal varices, unspecified esophageal varices type METHYLMALONIC ACID BLOOD Routine 11/21/2024 11:55 AM CDT Thrombocytopenia Anemia, unspecified type Bleeding esophageal varices, unspecified esophageal varices type COPPER BLOOD Routine 11/21/2024 11:55 AM CDT Thrombocytopenia Anemia, unspecified type Bleeding esophageal varices, unspecified esophageal varices type ENDOSCOPY, COLON, SCREENING Routine 11/08/2024 11:14 AM CARPET INSTALLATION SPECIALIST Constipation, unspecified constipation type Elevated liver enzymes Screen for colon cancer HEPATITIS C ANTIBODY Routine 11/06/2024 11:06 AM CARPET INSTALLATION SPECIALIST Elevated liver enzymes Enlarged liver PROSTATE SPECIFIC ANTIGEN SCREEN Routine 04/11/2024 12:50 PM CDT Special screening for malignant neoplasm of prostate HEMOGLOBIN A1C Routine 04/11/2024 12:50 PM CDT Type 2 diabetes mellitus with diabetic polyneuropathy, without long-term current use of insulin from Last 3 Months or Most Recently Relevant to Health Maintenance Results * (ABNORMAL) COMPREHENSIVE METABOLIC PANEL (02/01/2025 1:42 PM CDT) Glucose 159(H) 70 - 99 mg/dL [facility] ACCOUNT BILL BUN 18 8 - 27 mg/dL [facility] ACCOUNT BILL Creatinine 1.35(H) 0.76 - 1.27 mg/dL [facility] ACCOUNT BILL eGFR by CKD-EPI 55(L) >59 mL/min/1.7 3 [facility] ACCOUNT BILL BUN/Creatinine Ratio 13 10 - 24 [facility] ACCOUNT BILL Sodium 139 134 - 144 mmol/L [facility] ACCOUNT BILL Potassium 4.2 3.5 - 5.2 mmol/L [facility] ACCOUNT BILL Chloride 102 96 - 106 mmol/L [facility] ACCOUNT BILL CO2 24 20 - 29 mmol/L [facility] ACCOUNT BILL Calcium 9.4 8.6 - 10.2 mg/dL [facility] ACCOUNT BILL Protein Total 6.5 6.0 - 8.5 g/dL [facility] ACCOUNT BILL Albumin 3.9 3.8 - 4.8 g/dL [facility] ACCOUNT BILL Globulin Total 2.6 1.5 - 4.5 g/dL [facility] ACCOUNT BILL Bilirubin Total 0.5 0.0 - 1.2 mg/dL [facility] ACCOUNT BILL Alkaline Phosphatase 87 44 - 121 IU/L [facility] ACCOUNT BILL AST 121(H) 0 - 40 IU/L [facility] ACCOUNT BILL ALT 47(H) 0 - 44 IU/L [facility] ACCOUNT BILL Blood BLOOD SPECIMEN / Unknown 02/01/2025 1:42 PM CDT 02/01/2025 Narrative [facility] ACCOUNT BILL - 02/02/2025 6:06 AM CDT Performed at: 01 - [facility] [id number] [place] Floor Supervisor: Aurelio Trivedi PhD, Phone: [phone] us Ramon Flynn MD LAB - CHEMISTRY ORDERABLES Final Result [facility] ACCOUNT BILL [address] [place] [address] * (ABNORMAL) CBC WITH DIFFERENTIAL (02/01/2025 1:41 PM CDT) Only the most recent of2 resultswithin the time period is included. WBC 4.7 3.4 - 10.8 x10E3/uL [facility] ACCOUNT BILL RBC 3.15(L) 4.14 - 5.80 x10E6/uL [facility] ACCOUNT BILL Comment:Stomatocytes present . Hemoglobin 10.5(L) 13.0 - 17.7 g/dL [facility] ACCOUNT BILL Hematocrit 32.6(L) 37.5 - 51.0 % [facility] ACCOUNT BILL MCV 104(H) 79 - 97 fL [facility] ACCOUNT BILL MCH 33.3(H) 26.6 - 33.0 pg [facility] ACCOUNT BILL MCHC 32.2 31.5 - 35.7 g/dL [facility] ACCOUNT BILL RDW 14.4 11.6 - 15.4 % [facility] ACCOUNT BILL Platelet Count 78(LL) 150 - 450 x10E3/uL [facility] ACCOUNT BILL Comment:Platelet count verif ied by examination of peripheral blood smear. Granulocytes % 69 Not Estab. % [facility] ACCOUNT BILL Lymphocytes % 22 Not Estab. % [facility] ACCOUNT BILL Monocytes % 6 Not Estab. % [facility] ACCOUNT BILL Eosinophils % 1 Not Estab. % [facility] ACCOUNT BILL Basophils % 1 Not Estab. % [facility] ACCOUNT BILL Immature Cells Note [facility] ACCOUNT BILL Granulocytes Absolute 3.2 1.4 - 7.0 x10E3/uL [facility] ACCOUNT BILL Lymphocytes Absolute 1.0 0.7 - 3.1 x10E3/uL [facility] ACCOUNT BILL Monocytes Absolute 0.3 0.1 - 0.9 x10E3/uL [facility] ACCOUNT BILL Eosinophils Absolute 0.0 0.0 - 0.4 x10E3/uL [facility] ACCOUNT BILL Basophils Absolute 0.0 0.0 - 0.2 x10E3/uL [facility] ACCOUNT BILL Comment Hematology Note: [facility] ACCOUNT BILL Comment: Manual differential was performed. Performed at: 01 - [facility] [address] [id number] [place] Supervisor: Aurelio Trivedi PhD, Phone: [phone] Myelocytes 1(H) 0 - 0 % [facility] ACCOUNT BILL Blood BLOOD SPECIMEN / Unknown 02/01/2025 1:41 PM CDT 02/01/2025 Narrative [facility] ACCOUNT BILL - 02/02/2025 8:07 AM CDT Performed at: - [facility] [id number] [place] Supervisor: Aurelio Trivedi PhD, Phone: [phone] us Ramon Flynn MD LAB - HEMATOLOGY ORDERABLES Final Result [facility] ACCOUNT BILL [address] [place] [address] * IR Bone Marrow Biopsy (01/11/2025 9:11 AM CDT) Anatomical Region Laterality Modality Lower Extremity, Pelvis X-Ray An giography 01/11/2025 11:0 1 AM CDT Impressions 01/11/2025 4:51 PM CDT Impression: Fluoroscopy-guided bone marrow aspiration and biopsy of the right iliac bone, as described above. I, Dr. Hooks, was present and performed/supervised the entire procedure. Moderate sedation on this patient was ordered by me, administered intravenously in my presence, and monitored by the procedure nurse as an independent trained observer who was present throughout the procedure. The following parameters were monitored: oxygen saturation, heart rate, blood pressure, and response to care. Intra-service sedation start time was 0853 and end time was 0903 during which I was present. Total physician intra-service sedation time was 10 minutes. For details on pre moderate sedation and post moderate sedation patient evaluation, please review the evaluation forms in EPIC. For details on monitored clinical parameters during the intra-service sedation time, please review the procedure nurse documentation in [facility]. > Interpreting Provider: Alejandro Hooks MD on 01/11/2025 4:51 PM Narrative 01/11/2025 4:51 PM CDT History: Thrombocytopenia Operators: 1.Alejandro Hooks MD Anesthesia: 1.Local anesthesia - 10 mL of 1% Lidocaine 2.Intravenous conscious sedation - Versed 2 mg and Fentanyl 100 mcg Procedure: Fluoroscopy-guided bone marrow aspiration and biopsy of the right iliac bone Fluoroscopy time: 0.6 Procedure in detail: The procedure and possible complications were explained to the patient in detail, and informed consent was obtained. The patient was placed in a prone position on the procedure table. Second Vp Hr Assessment radiograph of the pelvis was obtained and was unremarkable. A percutaneous entry site was marked on the skin. A pre-procedure timeout was performed. The marked site and skin around the region was prepped and draped in a sterile fashion. Local anesthesia was provided with 1% Lidocaine. An 11 gauge coaxial needle system was advanced towards the iliac bone under fluoroscopic guidance. Using the power drill On-control system, the bone marrow was accessed. With the needle tip within the iliac wing bone marrow, the inner stilet was removed and marrow aspiration was performed per protocol. The samples were collected and sent to the on-site hematology oncology lab. In addition, one core sample was acquired by advancing the coaxial system across the iliac wing bone marrow. Final post-biopsy imaging did not show any immediate complications. The patient tolerated the procedure well and was transferred to the holding area in stable condition. The pathology report is pending at the time of this dictation. Procedure Note Alejandro Hooks MD - 01/11/2025 History: Thrombocytopenia Operators: 1.Alejandro Hooks MD Anesthesia: 1.Local anesthesia - 10 mL of 1% Lidocaine 2.Intravenous conscious sedation - Versed 2 mg and Fentanyl 100 mcg Procedure: Fluoroscopy-guided bone marrow aspiration and biopsy of the right iliac bone Fluoroscopy time: 0.6 Procedure in detail: The procedure and possible complications were explained to the patientin detail, and informed consent was obtained. The patient was placed in a prone position on the procedure table. Second Vp Hr Assessment radiograph of the pelviswas obtained and was unremarkable. A percutaneous entry site was marked onthe skin. A pre-procedure timeout was performed. The marked site and skin around the region was prepped and draped in a sterile fashion. Local anesthesia was provided with 1% Lidocaine. An 11 gauge coaxial needle system was advanced towards the iliac bone under fluoroscopic guidance. Using the power drill On-control system, the bone marrow was accessed. With the needle tip within the iliac wing bonemarrow, the inner stilet was removed and marrow aspiration was performed per protocol. The samples were collected and sent to the on-site hematology oncology lab. In addition, one core sample was acquired by advancing the coaxial system across the iliac wing bone marrow. Final post-biopsy imaging did not show any immediate complications. The patient tolerated the procedure well and was transferred to the holding area in stable condition. The pathology report is pending at the time of this dictation. Impression: Fluoroscopy-guided bone marrow aspiration and biopsy of the right iliac bone, as described above. I, Dr. Hooks, was present and performed/supervised the entire procedure. Moderate sedation on this patient was ordered by me, administered intravenously in my presence, and [facility] as an independent trained observer who was present throughout the procedure. The following parameters were monitored: oxygen saturation, heart rate, blood pressure, and response to care. Intra-service sedation start time was 0853 and end time was 0903 during which I was present.Total physician intra-service sedation time was 10 minutes. For details on pre moderate sedation and post moderate sedation patient evaluation, please review the evaluation forms in [facility]. For details on monitored clinical parameters during the intra-service sedation time, please review the procedure nurse documentation in [facility]. > Interpreting Provider: Alejandro Hooks MD on 01/11/2025 4:51 PM us Kulwinder Cotter MD IR ORDERABLES Final Result * BONE MARROW BIOPSY (STL) (01/11/2025 8:58 AM CDT) Case Report Bone Marrow Report Case: [id number] Authorizing Provider: Kulwinder Cotter MD Collected: 01/11/2025 08:58 AM Ordering Location: [facility] Intervention Rad Received: 01/11/2025 09:56 AM Pathologist: Latoya Arriola MD Specimens: A) - Bone Marrow Clot B) - Bone Marrow Core C) - Bone Marrow Aspirate D) - Blood Peripheral E) - F) - Bone Marrow 02/11/2025 8:02 AM CDT [facility] Final Diagnosis Bone marrow, right iliac crest, aspirate, clot, and core biopsy: -- Normocellular marrow with megakaryocytic hyperplasia -- No increase in blasts or plasma cells -- No morphologic or immunophenotypic evidence of B or T-cell lymphoma -- See microscopic description and comment Bone marrow aspirate, flow cytometry: -- Minute clonal plasma cell population (lambda-restricted) -- No increase in blasts -- No clonal B-cell population -- No aberrant T-cell population -- See flow cytometry summary 02/11/2025 8:02 AM CDT [facility] at 1548 CDT Addendum 2 The myeloid NGS pane l is attached. 02/11/2025 8:02 AM CDT [facility] Addendum electronically signed by Latoya Arriola MD on 02/11/2025 at 0802 CDT Addendum 1 See attached reports. 02/11/2025 8:02 AM CDT [facility] Addendum electronically signed by Latoya Arriola MD on 01/22/2025 at 1703 CDT Clinical History The patient is a 74-year-old man with thrombocytopenia, hepatosplenomegaly, esophageal varices, macrocytic anemia, IgG lambda MGUS, melena, positive LG. 02/11/2025 8:02 AM CDT [facility] Gross Description The specimens are received in two formalin-filled containers labeled with the patient s name, Michael Dubois. Part A consists of a blood clot (4 x 1.7 x 1.2 cm). Metal Technician sections are submitted in A1. Part B is additionally labeled core and consists of a bone core (2.5 cm in length x 0.2 cm in diameter). Entirely submitted in cassette B1 following decalcification. AMA/na 02/11/2025 8:02 AM CDT [facility] Peripheral Smear Description CBC: Review of the peripheral blood smear shows macrocytic anemia with no significant anisopoikilocytosis or rouleaux formation. White blood cells are normal in number. Neutrophils demonstrate normal lobation and granulation. Occasional large granular lymphocytes and plasmacytoid cells are present. Platelets are decreased in number and demonstrate normal morphology. Blasts are not identified. 02/11/2025 8:02 AM CDT [facility] Bone Marrow Description The bone marrow aspirate smears demonstrate cellular spicules, which are adequate for evaluation. Scattered megakaryocytes are noted, which are morphologically normal. Myeloid and erythroid precursors demonstrate progressive maturation. The kudmajd-oo-cqzmlsvyj ratio is decreased. Lymphocytes are small with mature chromatin. There is no increase in blasts or overt dyspoiesis. Atypical plasma cells are not readily identified. 500-cell manual differential count (%): Blasts - 1 Promyelocytes - 1 Myelocytes - 6 Metamyelocytes - 5 Bands - 9 Neutrophils - 14 Lymphocytes - 10 Monocytes - 2 Eosinophils - 3 Plasma cells - 2 Erythroids - 47 The touch preparation shows similar findings. 02/11/2025 8:02 AM CDT [facility] Microscopic Description The core biopsy is adequate with 23 mm of evaluable marrow. The bone marrow is normocellular (40% cellularity). Scattered megakaryocytes are noted, which are mildly increased in number and demonstrate normal morphology. The ccroyol-at-jmzvvqqub ratio is decreased. Myeloid and erythroid precursors demonstrate progressive maturation. Blasts are not increased. Lymphoid aggregates are not identified. Immunostains are performed on the core biopsy to further evaluate the marrow elements in an architectural context. Myeloperoxidase and E-cadherin highlight myeloid and erythroid precursors, respectively, and confirm a decreased stwsqtc-gr-ktxfzwdlw ratio. CD34 highlights rare cells. CD117 highlights scattered cells comprising less than 5% of marrow cellularity. CD3 and CD20 are positive in singly scattered T and B-cells, respectively, with a predominance of T-cells. CD138 highlights singly scattered and small clusters of perivascular plasma cells comprising less than 5% of marrow cellularity. In situ hybridization for kappa and lambda RNA demonstrates a decreased xqqje-zj-gyumam ratio in the plasma cells. Reticulin shows no significant fibrosis. The clot shows primarily peripheral blood. 02/11/2025 8:02 AM T [facility] Flow Cytometry Summary The Hinkle-stained smear prepared from the flow cytometry specimen contains cellular spicules, which are adequate for evaluation. Flow cytometric analysis performed by [facility] [employer] ([id number]) on the bone marrow aspirate shows less than 1% of total events have scatter characteristics of blasts. 8% of total events have scatter characteristics of lymphocytes, 89% of which are CD3-positive T-cells. The T-cells have a CD4-to-CD8 ratio of 2.7 and demonstrate retained expression of CD2, CD5, and CD7. MD70-vjgcstho B-cells represent 2.5% of events within the lymphocyte gate and demonstrate a surface light chain grgbn-ow-qeznsd ratio of 1.1 with no significant expression of CD5, CD10, or CD103. 0.1% of total events are within the plasma cell region and demonstrate a cytoplasmic bdgfa-gc-lbdbid ratio of 0.5. There is a minor subset of plasma cells that expresses CD56 and demonstrates cytoplasmic lambda restriction. 3% of total events are in the monocyte region, express CD13, CD33, CD64, and CD14, and lack expression of CD34 and CD56. This test was performed at [facility]. at [address], [address]. [facility] is a business unit of [employer] a wholly-owned subsidiary of [employer]. This test was developed and its performance characteristics determined by [facility]. It has not been cleared or approved by the Food and Drug Administration (FDA). The FDA has determined that such clearance or approval is not necessary. The interpretation of the flow cytometry analysis is performed by [facility] at [facility]. AMA 02/11/2025 8:02 AM [facility] AP Comment Overall, the bone marrow is normocellular for patient age and demonstrates mild megakaryocytic hyperplasia and a decreased wyiciej-pt-axqvbeigo ratio, which are nonspecific findings that may be reactive. There is no increase in blasts, overt dysplasia, or fibrosis. A minor subset of plasma cells demonstrates lambda-restriction by flow cytometry and plasma cells represent less than 5% of marrow cellularity by morphology and immunohistochemistry. Correlation with conventional cytogenetic analysis, multiple FISH panel, NGS panel, and clinical findings is needed to determined the significance of the abnormalities in this case. 02/11/2025 8:02 AM [facility] Disclaimer All histochemical and/or immunohistochemical results are interpreted with controls that demonstrate appropriate staining reactions before reporting results. Note on use of immunocytochemistry reagents: This test was developed and its performance characteristic determined by [facility], Department of Laboratory Medicine. It has not been cleared or approved by the U.S. Food and Drug Administration (FDA). The FDA has determined that such clearance or approval is not necessary. The test is used for clinical purpose. It should not be regarded as investigational or for research. This laboratory is certified to perform high complexity testing. The performance characteristics of the IHC/DEBRA assays have been validated on formalin-fixed paraffin embedded tissues only. The assays have not been validated on decalcified tissues. Results should be interpreted with caution. 02/11/2025 8:02 AM CDT [facility] Embedded Images 02/11/2025 8:02 AM CDT [facility] Pathology/Cytology BONE MARROW SPECIMEN / Unknown 01/11/2025 8:58 AM CDT 01/11/2025 9:56 AM CDT Miscellaneous samples (specimen) BONE MARROW SPECIMEN / Unknown 01/11/2025 8:58 AM CDT 01/11/2025 9:56 AM CDT Miscellaneous samples (specimen) SPECIMEN FROM BONE MARROW OBTAINED BY ASPIRATION / Unknown 01/11/2025 8:58 AM CDT 01/11/2025 9:56 AM CDT Miscellaneous samples (specimen) PERIPHERAL BLOOD / Unknown 01/11/2025 8:58 AM CDT 01/11/2025 9:56 AM CDT Miscellaneous samples (specimen) 01/11/2025 8:58 AM CDT 01/11/2025 9:56 AM CDT Miscellaneous samples (specimen) BONE MARROW SPECIMEN / Unknown 01/11/2025 8:58 AM CDT 01/11/2025 9:56 AM CDT Kulwinder Cotter MD LAB - PATHOLOGY/CYTOLOGY ORDERA ROBERTOS Edited Result - Final [facility] [address] [place] [address] * FLOW CYTOMETRY PANEL (01/11/2025 8:58 AM CDT) Flow Cytometry Result See Scanned Report 01/25/2025 11:25 AM CDT [facility] Other BONE MARROW SPECIMEN / Unknown Collection / Unknown 01/11/2025 8:58 AM CDT 01/11/2025 9:48 AM CDT us Kulwinder Cotter MD LAB - HEMATOLOGY ORDERABLES Fin al Result [facility] ([place]) [address] [address] * (ABNORMAL) PT-INR (01/11/2025 8:04 AM CDT) PT 16.7(H) 12.1 - 14.8 sec 01/11/2025 8:22 AM CDT [facility] INR 1.4(H) 0.9 - 1.1 01/11/2025 8:22 AM CDT [facility] Blood BLOOD SPECIMEN / Unknown Venipuncture / Unknown 01/11/2025 8:04 AM CDT 01/11/2025 8:08 AM CDT Narrative [facility] - 01/11/2025 8:22 AM CDT Conventional Warfarin Anticoagulant Therapy: INR Reference Range: 2.0-3.0 Intensive Warfarin Anticoagulant Therapy: INR Reference Range: 2.5-3.5 us Antonio Pacheco MD LAB - COAGULATION ORDERABL ES Final Result [facility] [address] [id number] * (ABNORMAL) BASIC METABOLIC PANEL (CALCIUM TOTAL) (01/11/2025 7:28 AM CDT) Glucose 175(H) 70 - 99 mg/dL 01/11/2025 8:22 AM CDT [facility] Sodium 140 136 - 145 mmol/L 01/11/2025 8:22 AM CDT [facility] Potassium 4.0 3.5 - 5.1 mmol/L 01/11/2025 8:22 AM CDT [facility] Chloride 107 98 - 107 mmol/L 01/11/2025 8:22 AM CDT [facility] CO2 25 22 - 29 mmol/L 01/11/2025 8:22 AM CDT [facility] Calcium 9.0 8.4 - 10.4 mg/dL 01/11/2025 8:22 AM CDT [facility] Anion Gap 8 6 - 16 mmol/L 01/11/2025 8:22 AM CDT [facility] BUN 21 7 - 26 mg/dL 01/11/2025 8:22 AM CDT [facility] Creatinine 1.20 0.72 - 1.25 mg/dL 01/11/2025 8:22 AM CDT [facility] eGFR by CKD-EPI 64(L) >=90 mL/min/1.7 3 m2 01/11/2025 8:22 AM CDT [facility] Blood BLOOD SPECIMEN / Unknown Venipuncture / Unknown 01/11/2025 7:28 AM CDT 01/11/2025 7:54 AM CDT us Antonio Pacheco MD LAB - CHEMISTRY ORDERABLES Final Result [facility] [address] [place] [address] * (ABNORMAL) CBC W AUTO DIFFERENTIAL (CANCER CARE) (11/21/2024 11:55 AM CDT) WBC 4.4 4.4 - 10.7 x10E9/L 11/21/2024 12:07 PM CDT [facility] Neutrophils % 65.7 44.0 - 73.0 % 11/21/2024 12:07 PM CDT [facility] Lymphocytes % 24.8 20.0 - 43.0 % 11/21/2024 12:07 PM CDT [facility] Monocytes % 6.3 5.0 - 13.0 % 11/21/2024 12:07 PM CDT [facility] Eosinophils % 2.5 0.0 - 6.0 % 11/21/2024 12:07 PM CDT [facility] Basophils % 0.7 0.0 - 2.0 % 11/21/2024 12:07 PM CDT [facility] Neutrophil Absolute 2.92 2.01 - 7.14 x10E9/L 11/21/2024 12:07 PM CDT [facility] Lymphocytes Absolute 1.10 1.07 - 3.94 x10E9/L 11/21/2024 12:07 PM CDT [facility] Monocytes Absolute 0.28 0.26 - 1.07 x10E9/L 11/21/2024 12:07 PM CDT [facility] Eosinophils Absolute 0.11 0 - 0.47 x10E9/L 11/21/2024 12:07 PM CDT [facility] Basophils Absolute 0.03 0 - 0.08 x10E9/L 11/21/2024 12:07 PM CDT [facility] RBC 3.30(L) 3.80 - 5.40 x10E12/L 11/21/2024 12:07 PM CDT [facility] Hemoglobin 10.6(L) 12.0 - 17.6 gm/dL 11/21/2024 12:07 PM CDT [facility] Hematocrit 33.6(L) 35.2 - 51.7 % 11/21/2024 12:07 PM CDT [facility] MCV 101.8(H) 80.7 - 98.3 fl 11/21/2024 12:07 PM CDT [facility] MCH 32.1 26.7 - 34.0 pg 11/21/2024 12:07 PM CDT [facility] MCHC 31.5 30.8 - 35.9 gm/dL 11/21/2024 12:07 PM CDT [facility] RDW-CV 14.2 12.1 - 14.9 % 11/21/2024 12:07 PM CDT [facility] Platelet Count 75(L) 153 - 416 x10E9/L 11/21/2024 12:07 PM CDT [facility] MPV 11.4 9.4 - 12.9 fl 11/21/2024 12:07 PM CDT [facility] Blood BLOOD SPECIMEN / Unknown 11/21/2024 11:55 AM CDT 11/21/2024 11:55 AM CDT us Kulwinder Cotter MD LAB - HEMATOLOGY ORDERABLES [place] [address] [address] * (ABNORMAL) PROTEIN ELECTRO+ANGELI+FREE LIGHT CHAINS (11/21/2024 11:55 AM CDT) IgG Quantitative 925 603 - 1,613 mg/dL [facility] ACCOUNT BILL IgA Quantitative 121 61 - 437 mg/dL [facility] ACCOUNT BILL IgM Quantitative 53 15 - 143 mg/dL [facility] ACCOUNT BILL Protein Total 6.3 6.0 - 8.5 g/dL [facility] ACCOUNT BILL Albumin 3.2 2.9 - 4.4 g/dL [facility] ACCOUNT BILL Alpha-1 Globulin 0.3 0.0 - 0.4 g/dL [facility] ACCOUNT BILL Zhbwf-0-Uyayuwpz 0.9 0.4 - 1.0 g/dL [facility] ACCOUNT BILL Beta-Globulin 1.1 0.7 - 1.3 g/dL [facility] ACCOUNT BILL Gamma Globulin 0.9 0.4 - 1.8 g/dL [facility] ACCOUNT BILL M-Donald 0.2(H) Not Observed g/dL [facility] ACCOUNT BILL Globulin Total 3.1 2.2 - 3.9 g/dL [facility] ACCOUNT BILL Albumin/Globulin Ratio 1.1 0.7 - 1.7 [facility] ACCOUNT BILL Immunofixation Result Comment(A) [facility] ACCOUNT BILL Comment: Immunofixation shows IgG monoclonal protein with lambda light chain specificity. Please Note Comment [facility] ACCOUNT BILL Comment: Protein electrophoresis scan will follow via computer, mail, or port purser delivery. Free Mellen Light Chains 21.2(H) 3.3 - 19.4 mg/L [facility] ACCOUNT BILL Free Lambda Light Chains 17.3 5.7 - 26.3 mg/L [facility] ACCOUNT BILL Mellen/Lambda Ratio 1.23 0.26 - 1.65 [facility] ACCOUNT BILL Blood BLOOD SPECIMEN / Unknown 11/21/2024 11:55 AM CDT 11/21/2024 Comment:Blood Release to [facility] [place] [facility] ACCOUNT BILL - 11/23/2024 3:10 PM CDT Performed at: 01 - [facility] [id number] G[place] Floor Supervisor: Aurelio Trivedi PhD, Phone: [phone] Kulwinder Cotter MD LAB - CHEMISTRY ORDERABLES Lizeth l Result Performing Organization Address [facility] Co de Phone Number [facility] [address] * (ABNORMAL) TSH REFLEX FREE T4 (11/21/2024 11:55 AM CDT) TSH 18.233(H) 0.350 - 4.940 uIU/mL [facility] ACCOUNT BILL Blood BLOOD SPECIMEN / Unknown 11/21/2024 11:55 AM CDT 11/21/2024 Comment:Blood Release to pat i Narrative [facility] ACCOUNT BILL - 11/21/2024 7:09 PM CDT Performed at: [address] [place] [address] [place], [place] [id number] [place] Floor Supervisor: Pilar Jenkins [facility], Phone: [phone] Kulwinder Cotter MD LAB - CHEMISTRY ORDERABLES Lizeth l Result Performing Organization Address [facility] Co de Phone Number [facility] [address] * METHYLMALONIC ACID BLOOD (11/21/2024 11:55 AM CDT) Methylmalonic Acid 159 0 - 378 nmol/L [facility] ACCOUNT BILL Blood BLOOD SPECIMEN / Unknown 11/21/2024 11:55 AM CDT 11/21/2024 Comment:Blood Release to pat i Narrative [facility] ACCOUNT BILL - 11/25/2024 1:08 PM CDT Test(s) 244980-Rxtgyfkshccuf Acid, Serum was developed and its performance characteristics determined by [facility]. It has not been cleared or approved by the Food and Drug Administration. Performed at: [address] [id number] [place] Floor Supervisor: Ermelinda Carrera MD, Phone: [phone] Kulwinder Cotter MD LAB - CHEMISTRY ORDERABLES Lizeth l Result Performing Organization Address City/[facility]/ZIP Co de Phone Number [facility] ACCOUNT BILL [address] [place] [address] * ZINC BLOOD (11/21/2024 11:55 AM CDT) Zinc, Plasma or Serum 75 44 - 115 ug/dL [facility] ACCOUNT BILL Comment:Detection Limit = 5 Blood BLOOD SPECIMEN / Unknown 11/21/2024 11:55 AM CDT 11/21/2024 Comment:Blood Release to pat i Narrative [facility] ACCOUNT BILL - 11/23/2024 7:09 AM CDT Test(s) 167949-Jkno, Plasma or Serum was developed and its performance characteristics determined by [facility]. It has not been cleared or approved by the Food and Drug Administration. Performed at: - [facility] [id number] [place] Floor Supervisor: Ermelinda Carrera MD, Phone: [phone] Kulwinder Cotter MD LAB - CHEMISTRY ORDERABLES Lizeth l Result Performing Organization Address City/[facility]/ZIP Co de Phone Number [facility] ACCOUNT BILL [address] [place] [address] * COPPER BLOOD (11/21/2024 11:55 AM CDT) Copper 111 69 - 132 ug/dL [facility] ACCOUNT BILL Comment:Detection Limit = 5 Blood BLOOD SPECIMEN / Unknown 11/21/2024 11:55 AM CDT 11/21/2024 Comment:Blood Release to pat Narrative [facility] ACCOUNT BILL - 11/23/2024 7:09 AM CDT Test(s) 646445-Pkzqvr, Serum or Plasma was developed and its performance characteristics determined by [facility]. It has not been cleared or approved by the Food and Drug Administration. Performed at: - [facility] [id number] [place] Floor Supervisor: Ermelinda Carrera MD, Phone: [phone] Kulwinder Cotter MD LAB - CHEMISTRY ORDERABLES Lizeth l Result Performing Organization Address City/[facility]/ZIP Co de Phone Number [facility] ACCOUNT BILL [address] [place] [address] * VITAMIN B12 FOLATE PANEL (11/21/2024 11:55 AM CDT) Pathologist [facility] Vitamin B12 331 213 - 816 pg/mL [facility] ACCOUNT BILL Folate 13.8 7.0 - 31.4 ng/mL [facility] ACCOUNT BILL Blood BLOOD SPECIMEN / Unknown 11/21/2024 11:55 AM CDT 11/21/2024 Comment:Blood Release to pat i Narrative [facility] ACCOUNT BILL - 11/21/2024 7:09 PM CDT Performed at: [address] [place] [address], [place] [id number] [place] Floor Supervisor: Pilar Jenkins [facility], Phone: [phone] Kulwinder Cotter MD LAB - CHEMISTRY ORDERABLES Lizeth l Result Performing Organization Address [facility] Co de Phone Number [facility] ACCOUNT BILL [address] [place] [address] * (ABNORMAL) T4 FREE (11/21/2024 11:55 AM CDT) [facility] T4 Free Direct 0.67(L) 0.70 - 1.50 ng/dL [facility] ACCOUNT BILL 11/21/2024 11:5 5 AM CDT 11/21/2024 Comment:Blood Release to pat i Narrative [facility] ACCOUNT BILL - 11/21/2024 7:09 PM CDT Performed at: [address] [place] [address], [place] [id number] [place] Floor Supervisor: Pilar Jenkins [facility], Phone: [phone] Kulwinder Cotter MD LAB - CHEMISTRY ORDERABLES Lizeth l Result Performing Organization Address City/[facility]/ZIP Co de Phone Number [facility] ACCOUNT BILL [address] [place] [address] * Endoscopy, Colon, Screening (11/08/2024 11:14 AM CARPET INSTALLATION SPECIALIST) Report Endoscopy POC _ Patient Name: Michael Dubois Procedure Date: 11/08/2024 11:14 AM Date of : 1950 Admit Type: Outpatient Age: 74 Gender: Male Attending MD: Ramon Flynn MD, [id number] _ Procedure: Colonoscopy Indications: Screening for colorectal malignant neoplasm, This is the patient's first colonoscopy Providers: Ramon Flynn MD (Doctor) Referring MD: Surendra Henriquez MD (Referring MD) Medicines: Monitored Anesthesia Care Complications: No immediate complications. _ Estimated Blood Loss: Estimated blood loss: none. Procedure: Pre-Anesthesia Assessment: - Prior to the procedure, a History and Physical was performed, and patient medications and allergies were reviewed. The patient is competent. The risks and benefits of the procedure and the sedation options and risks were discussed with the patient. All questions were answered and informed consent was obtained. Patient identification and proposed procedure were verified by the physician, the nurse and the spare hand in the procedure room. Mental Status Examination: alert and oriented. Airway Examination: normal oropharyngeal airway and neck mobility. Respiratory Examination: clear to auscultation. CV Examination: normal. Prophylactic Antibiotics: The patient does not require prophylactic antibiotics. Prior Anticoagulants: The patient has taken Eliquis (apixaban), last dose was 2 weeks prior to procedure. ASA Grade Assessment: IV - A patient with severe systemic disease that is a constant threat to life. After reviewing the risks and benefits, the patient was deemed in satisfactory condition to undergo the procedure. The anesthesia plan was to use monitored anesthesia care (MAC). Immediately prior to administration of medications, the patient was re-assessed for adequacy to receive sedatives. The heart rate, respiratory rate, oxygen saturations, blood pressure, adequacy of pulmonary ventilation, and response to care were monitored throughout the procedure. The physical status of the patient was re-assessed after the procedure. After I obtained informed consent, the scope was passed under direct vision. Throughout the procedure, the patient's blood pressure, pulse, and oxygen saturations were monitored continuously. The Colonoscope was introduced through the anus and advanced to the cecum, identified by appendiceal orifice and ileocecal valve. The colonoscopy was performed without difficulty. The patient tolerated the procedure well. The quality of the bowel preparation was fair. The ileocecal valve, appendiceal orifice, and rectum were photographed. Findings: The digital rectal exam was normal. Pertinent negatives include no palpable rectal lesions. Four sessile polyps were found in the ascending colon. The polyps were 5 to 14 mm in size. These polyps were removed with a hot snare. Resection and retrieval were complete. To prevent bleeding post-intervention, one hemostatic clip was successfully placed. There was no bleeding at the end of the procedure. Five sessile polyps were found in the transverse colon. The polyps were 5 to 6 mm in size. These polyps were removed with a hot snare. Resection and retrieval were complete. Two sessile polyps were found in the transverse colon. The polyps were 10 to 12 mm in size. These polyps were removed with a hot snare. Resection and retrieval were complete. To prevent bleeding post-intervention , two hemostatic clips were successfully placed. There was no bleeding at the end of the procedure. Two sessile polyps were found in the rectum and sigmoid colon. The polyps were 2 to 4 mm in size. These polyps were removed with a cold biopsy forceps. Resection and retrieval were complete. Five sessile polyps were found in the sigmoid colon and descending colon. The polyps were 5 to 7 mm in size. These polyps were removed with a hot snare. Resection and retrieval were complete. The cecum, appendiceal orifice and ileocecal valve appeared normal. _ Impression: - Preparation of the colon was fair. - Four 5 to 14 mm polyps in the ascending colon, removed with a hot snare. Resected and retrieved. Clip was placed. - Five 5 to 6 mm polyps in the transverse colon, removed with a hot snare. Resected and retrieved. - Two 10 to 12 mm polyps in the transverse colon, removed with a hot snare. Resected and retrieved. Clips were placed. - Two 2 to 4 mm polyps in the rectum and in the sigmoid colon, removed with a cold biopsy forceps. Resected and retrieved. - Five 5 to 7 mm polyps in the sigmoid colon and in the descending colon, removed with a hot snare. Resected and retrieved. - The cecum, ileocecal valve and appendiceal orifice are normal. Recommendation: - Await pathology results. - Return to primary care physician as previously scheduled. - Repeat colonoscopy in 1 year for surveillance if overall health is permissable. - Return to primary care physician as previously scheduled. - Resume previous diet. - Continue present medications. - Patient has a contact number available for emergencies. The signs and symptoms of potential delayed complications were discussed with the patient. Return to normal activities tomorrow. Written discharge instructions were provided to the patient. Procedure Code(s): --- Professional --- 93531, Colonoscopy, flexible; with removal of tumor(s), polyp(s), or other lesion(s) by snare technique 77357, 59, Colonoscopy, flexible; with biopsy, single or multiple --- Technical --- 16277, Colonoscopy, flexible; with removal of tumor(s), polyp(s), or other lesion(s) by snare technique 96942, 59, Colonoscopy, flexible; with biopsy, single or multiple Diagnosis Code(s): --- Professional --- Z12.11, Encounter for screening for malignant neoplasm of colon D12.2, Benign neoplasm of ascending colon D12.3, Benign neoplasm of transverse colon (hepatic flexure or splenic flexure) D12.8, Benign neoplasm of rectum D12.5, Benign neoplasm of sigmoid colon D12.4, Benign neoplasm of descending colon --- Technical --- Z12.11, Encounter for screening for malignant neoplasm of colon D12.2, Benign neoplasm of ascending colon D12.3, Benign neoplasm of transverse colon (hepatic flexure or splenic flexure) D12.8, Benign neoplasm of rectum D12.5, Benign neoplasm of sigmoid colon D12.4, Benign neoplasm of descending colon CPT copyright 2020 [employer]. All rights reserved. The codes documented in this report are preliminary and upon hide cleaner review may be revised to meet current compliance requirements. Dr. Ramon Flynn MD Ramon Flynn MD 11/08/2024 12:58:30 PM This report has been signed electronically. Number of Addenda: 0 Note Initiated On: 11/08/2024 11:14 AM [facility] ENDOSCOPY 11/08/2024 11:1 4 AM CARPET INSTALLATION SPECIALIST Leela Young HOT PACKER-DIRECTOR BIOSTATISTICS GI PROCEDURE ORDERABLE S Edited Result - Final [facility] [place] [address] * HEPATITIS C ANTIBODY (11/06/2024 11:06 AM CARPET INSTALLATION SPECIALIST) Hepatitis C Antibody Non Reactive Non Reactive [facility] ACCOUNT BILL Comment: Non Reactive - Antibodies to Hepatitis C virus (HCV) were no t detected, result does not exclude early acute HCV infection. Blood BLOOD SPECIMEN / Unknown 11/06/2024 11:06 AM CARPET INSTALLATION SPECIALIST 11/06/2024 Narrative [facility] ACCOUNT BILL - 11/07/2024 9:10 AM CARPET INSTALLATION SPECIALIST Performed at: [address] [place] [address] [place] [address] [place] [id number] Gambling Floor Supervisor: Pilar Jenkins [facility]ly [facility], Phone: [phone] us Leela A Hector ROBERTSONN-DIRECTOR BIOSTATISTICS LAB - CHEMISTRY ORDERA BLES Final Result [facility] ACCOUNT BILL [address] [place] [address] * (ABNORMAL) HEMOGLOBIN A1C (04/11/2024 12:50 PM CDT) Hemoglobin A1c 7.3(H) <5.7 % [facility] INSURANCE BILL Comment: AVERAGE GLUCOSE MG/DL BLOOD 163 mg/dL HbA1c Interpretation: Normal: < 5.7% Pre-diabetes: 5.7-6.4% Diabetes: Equal to or greater than 6.5% Test results diagnostic of diabetes should be repeated for c onfirmation. Treatment target values recommended by ADA and other clinica l organizations should be used to evaluate metabolic control in patients. This test should not replace glucose testing for patients wi th Type 1 diabetes, pediatric patients, or women. Falsely low HbA1c results may be observed in patients with c linical conditions that shorten erythrocyte life span or dec rease mean erythrocyte age such as the presence of unstable hemoglobin variants, elevated hemoglobin F level or other ca uses of hemolytic anemia. HbA1c may not accurately reflect glycemic control when clinical conditions that affect erythr ocyte survival are present. Severe Iron deficiency anemia m ay yield falsely high results. Hemoglobin A1c assay should not be used to diagnose or monitor diabetes in patients with malignancy, recent blood transfusion, chronic kidney or norma er disease. This method may yield falsely low results when hemoglobin (HbF) exceeds 5% in the specimen. The Chand Alinity assay for the measurement of HbA1c is a [facility] Glycohemoglobin Standardization Program (NGSP) certi fied method. FASTING Blood BLOOD SPECIMEN / Unknown 04/11/2024 12:50 PM CDT 04/11/2024 Narrative Resulting Agency Comment Lab Testing performed at: [facility] [address] Ameya MEADOWS [phone] us Surendra Henriquez MD LAB - CHEMISTRY ORDERABLES Final Result [facility] INSURANCE BILL [address] [place] [address] * PROSTATE SPECIFIC ANTIGEN SCREEN (04/11/2024 12:50 PM CDT) PSA 0.25 <=4.00 ng/mL [facility] INSURANCE BILL Comment: PSA values will vary depending on testing procedure used. R esults are not comparable across different methods. PSA yandel ues obtained by [facility] (not [facility]) use the Chand Alini ty immunoassay method. FASTING Blood BLOOD SPECIMEN / Unknown 04/11/2024 12:50 PM CDT 04/11/2024 Narrative Resulting Agency Comment Lab Testing performed at: [facility] [id number] [place] [address] [address] [place] [id number] Surendra Henriquez MD LAB - CHEMISTRY ORDERABLES Final Result [facility] INSURANCE BILL [address] [place] [address] from Last 3 Months or Most Recently Relevant to Health Maintenance Insurance MANAGED MEDICARE ADV MANAGED MEDICARE ADV Care Teams International Sales Manager Relationship Specialty Start [place] [address] [place] [id number] PCP - General Internal Medicine 07/12/16 [place] [address] [place] [address] Ladies Locker Room Attendant/Oncologist Hematology and Oncology 11/21/24 Becca Dhaliwal, HOT PACKER-DIRECTOR BIOSTATISTICS [address] [place] [address] Advance Practice Nurse Hematology and Oncology 11/21/24
--- OUTSIDE RECORDS SUMMARY | 2025-02-16 17:42 | XMS_ITS | Encounter Summary ---
Author Organization [facility] Address [facility] [place] [address] Care Team Providers Care Carbon Sequestration Plant Manager Name Role Phone Surendra Henriquez MD Primary Care Provider [phone] Kulwinder Cotter MD Unavailable [phone] Becca Dhaliwal JOGGLE PRESS OPERATOR-FINANCIAL COUNSELOR Unavailable [phone] Reason for Visit * Reason Comments Refill Request Encounter Details Date Type Department Care Team (Late Contact Info) Description 09/11/2024 Refill [facility] [id number] [place] [address] [place] [address] [address] Refill Request Social History Tobacco Use Types Packs/Day Years Used Date Smoking Tobacco: Former Cigarettes Q uit: 1985 Smokeless Tobacco: Never Alcohol Use Standard Drinks/Week Comments No 0 (1 standard drink = 0.6 oz pur e alcohol) PHQ-2 Answer Date Recorded Patient Health Questionnaire-2 Score 0 04/10/2024 Sex and Gender Information Value Date Recorded Sex Assigned at Not on file Legal Sex Male 3:09 PM CDT Gender Identity Not on file Sexual Orientation Not on file documented as of this encounter Plan of Treatment Upcoming Encounters Date Type Department Care Team ([facility] Contact Info) Description 04/23/2025 11:30 AM CDT Office Visit [facility] - Family Medicine [address] [facility] [address] [place] [address] [place] [address] [facility] [address] [place] [address] 07/03/2025 12:45 PM CDT Office Visit [facility] - [address] [place] [address] [place] [address] [place] [address] 08/06/2025 1:00 PM CASINO RUNNER Documentation [facility] [address] [place] [address] 08/13/2025 10:40 AM CASINO RUNNER Office Visit [address] [place] [address] [place] [address] [place] [address] documented as of this encounter Visit Diagnoses Not on filedocumented in this encounter Care Teams Carbon Sequestration Plant Manager Relationship Specialty Start [place] [address] [place] [address] PCP - General Internal Medicine 07/12/16 [place] [address] [place] [address] Replacer/Oncologist Hematology and Oncology 11/21/24 Becca Dhaliwal, JOGGLE PRESS OPERATOR-FINANCIAL COUNSELOR [address] [place] [address] Advance Practice Nurse Hematology and Oncology 11/21/24 documented as of this encounter
--- OUTSIDE RECORDS SUMMARY | 2025-02-16 17:42 | XMS_ITS | Encounter Summary ---
Author Organization [facility] Healthcare Address [address] [place] [address] Care Team Providers Care Scrap Piler Name Role Phone Terence Gupta MD Unavailable [phone] Navi Duarte MD Unavailable [phone] Surendra Henriquez MD Primary Care Provider [phone] Encounter Details Date Type Department Care Team (Late st Contact Info) Description 12/21/2024 Cardiology Conference Cardiothoracic Surgery Sabrina Nava RN Social History Tobacco Use Types Packs/Day Years Used Date Smoking Tobacco: Former Cigarettes Smokeless Tobacco: Never Alcohol Use Standard Drinks/Week Comments Yes 0 (1 standard drink = 0.6 oz pur e alcohol) AUDIT-C Answer Date Recorded Q1: How often do you have a drink containing alc ohol? Monthly or less 10/15/2024 Q2: How many drinks containi ng alcohol do you have on a typical day when you are drinking? 1 or 2 10/15/2024 Q3: How often do you have si x or more drinks on one occasion? Never 10/15/2024 Personal Safety Answer Date Recorded Have you ever been in or are you currently in a harmful physical or emotional relationship or is someone making you feel afraid or unsafe? Denies 12/11/2024 Sex and Gender Information Value Date Recorded Sex Assigned at Not on file Legal Sex Male 12:24 AM PIT FURNACE MELTER Gender Identity Not on file Sexual Orientation Not on file documented as of this encounter Progress Notes * Sabrina Nava RN - 12/21/2024 11:14 AM CDT [place] Cardiomyopathy Questionnaire (KCCQ-12) The following questions refer to your heart failure and how it may affect your life. Please read and complete/answer the following questions. There are no right or wrong answers. Please chacho or indicate the answer that best applies to you. 1. Heart failure affects different people in different ways. Some feel shortness of breath while others feel fatigue. Please indicate how much you are limited by heart failure (shortness of breath orfatigue) in your ability to do the following activities over the past 2 weeks. Activities: Extremely Limited (1) Quite a bit limited (2) Moderately Limited (3) Slightly Limited (4) Not at all limited (5) Limited for other reasons or does not apply (6) Showering/Bathing X Walking 1 block of level ground X Hurrying or jogging (as if to catch a bus) X 2. Over the past 2 weeks, how many times did you have swelling in your feet, ankles or legs when you woke up in the morning? Every Morning (1) 3 or more times a week (2) 1-2 times a week (3) Less than once a week (4) Never in the past 2 weeks (5) X 3. Over the past 2 weeks, on average, how many times has fatigue limited your ability to do what you wanted? All of the time (1) Several times a day (2) At least once a day (3) 3 or more times a week but not every day (4) 1-2 times per week (5) Less than once a week (6) Never over the past 2 weeks (7) X 4. Over the past 2 weeks, on average, how many times has shortness of breath limited your ability to do what you wanted? All of the time (1) Several times a day (2) At least once a day (3) 3 or more times a week but not every day (4) 1-2 times per week (5) Less than once a week (6) Never over the past 2 weeks (7) X 5. Over the past 2 weeks, on average, how many times have you been forced to sleep sitting up in a chair or with at least 3 pillows to prop you up because of shortness of breath? Every Night (1) 3 or more times a week (2) 1-2 times a week (3) Less than once a week (4) Never in the past 2 weeks (5) X 6. Over the past 2 weeks, how much has your heart failure limited your enjoyment of life? Extremely Limited (1) Quite a bit limited (2) Moderately Limited (3) Slightly Limited (4) Not at all limited (5) X 7. If you had to spend the rest of your life with your heart failure the way it is right now, how would you feel about this? Not at all satisfied (1) Mostly dissatisfied (2) Somewhat satisfied (3) Mostly satisfied (4) Completely satisfied (5) X 8. How much does your heart failure affect your lifestyle? Please indicate how your heart failure may have limited your participation in the following activities over the past 2 weeks. Lifestyle Activities: Extremely Limited (1) Quite a bit limited (2) Moderately Limited (3) Slightly Limited (4) Not at all limited (5) Limited for other reasons or does not apply (6) A.Hobbies/Recreation activities X B.Working or doing school business administrator X C. Visiting family or friends outside of the home X documented in this encounter Plan of Treatment Not on file documented as of this encounter Visit Diagnoses Not on filedocumented in this encounter Care Teams Scrap Piler Relationship Specialty Start Date End Date Surendra Henriquez MD [address] [facility] [address], [place] [address] PCP - General Internal Medicine 11/19/24 [place] [address] [facility] [address] [place] [address] Consulting Physician Urology 01/13/21 Navi Duarte MD [address] [facility] [address], [place] [address] Consulting Physician Interventional Cardiology 08/29/23 documented as of this encounter
--- OUTSIDE RECORDS SUMMARY | 2025-02-16 17:42 | XMS_ITS | Referral Summary ---
Author Organization [facility] Address [address] [place] [address] Care Team Providers Care Manager Party Name Role Phone Terence Gupta MD Unavailable [phone] Rafiq Duarte MD Unavailable [phone] Surendra Henriquez MD Primary Care Provider [phone] Encounters Date Type Department Care Team Description 02/11/2025 Telephone [facility] Medical Group Cardiology [address] [facility] [address] [place] [address] Rafiq Duarte MD 02/11/2025 [facility] Post Discharge Follow up phone call [address] [address] Amy Jordan 02/05/2025 5:24 AM CDT - 02/06/2025 10:46 AM CDT Hospital Encounter [address] [address] Rafiq Duarte MD Nonrheumatic aortic valve stenosis Discharge Disposition: Discharge to home or self care 02/05/2025 8:00 AM CDT - 02/05/2025 10:00 AM CDT Surgery [facility] Cardiac Catheterization Lab [address] [place] [address] Rafiq Duarte MD TAVR - PERCUTANEOUS FEMORAL [address] 02/05/2025 7:48 AM CDT Anesthesia Event [facility] Cardiac Catheterization Lab [address] [place] [address] RiveraAbbe jackman MD Barnhart, Lynlee Jo, NP 01/31/2025 Documentation Cardiothoracic Surgery Sabrina Nava RN 01/31/2025 7:50 AM CDT - 01/31/2025 11:59 PM CDT Hospital Encounter [facility] Diagnostic Imaging [address] [place] [address] Discharge Disposition: Discharge to home or self care 01/31/2025 7:45 AM CDT Pre-Admission Testing [facility] Pre Anesthesia Testing [address] [place] [address] Pre-operative exam (Primary Dx); PAF (paroxysmal atrial fibrillation) ([facility]); Chronic anticoagulation; Type 2 diabetes mellitus without complication, unspecified whether long term care administrator insulin use ([facility]) 01/17/2025 Orders Only [facility] Non-invasive Cardiac Diagnostic Testing [address] [place] [address] Rafiq Duarte MD Nonrheumatic aortic valve stenosis (Primary Dx) 01/17/2025 Documentation Cardiothoracic Surgery Sabrina Nava RN 01/10/2025 Documentation Cardiothoracic Surgery Sabrina Nava RN 01/10/2025 2:30 PM CDT Office Visit [facility] [address] [facility] [address] [place] [address] Sagar Alvarenga MD Aortic valve stenosis, etiology of cardiac valve disease unspecified (Primary Dx); Nonrheumatic aortic valve stenosis 12/31/2024 12:32 PM CDT - 12/31/2024 11:59 PM CDT Hospital Encounter [facility] Imaging and Radiology [address] [place] [address] Aortic valve stenosis, severe Discharge Disposition: Discharge to home or self care 12/21/2024 Orders Only Cardiology Rafiq Duarte MD Aortic valve stenosis, severe (Primary Dx) 12/21/2024 Cardiology Conference Cardiothoracic Surgery Sabrina Nava, BISI 12/17/2024 Telephone [facility] Medical Group Cardiology [address] [address] [place] [address] Rafiq Duarte MD 12/11/2024 11:30 AM CDT - 12/11/2024 1:30 PM CDT Surgery [facility] Cardiac Catheterization Lab [address] [place] [address] Rafiq Duarte MD CORONARY ANGIOGRAPHY [address] 12/11/2024 9:09 AM CDT - 12/11/2024 2:07 PM CDT Hospital Encounter [facility] Cardiac Catheterization Lab [address] [place] [address] Rafiq Duarte MD Nonrheumatic aortic valve stenosis Discharge Disposition: Discharge to home or self care 11/27/2024 Telephone [facility] [address] [place] [address] Mimi Stoddard NP 11/16/2024 9:30 AM CDT Office Visit [facility] Cardiology [address] [place] [phone] Mimi Stoddard NP Severe aortic stenosis (Primary Dx); History of GI bleed; Anemia, unspecified type from Last 3 Months Allergies Active Allergy Reactions Criticality Noted Date [...] (12/11/2020): Added automatically from request for surgery [id number] Social History Tobacco Use Types Packs/Day Years [...] on file 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 Gender Identity Not on file Sexual [...] 02/05/2025 5:07 PM CDT Plan of Treatment Not on file Medical Devices Implanted Type Area Shaft Mechanic Device Identifier Shelf Expiration Date Model / Serial / Lot Khan Lifesciences Valve Aortic Trnscath Inocente 3 Ultra Resilia 26mm [id number] - [id number] - [id number] Implanted:Qty: 1 on 02/05/2025 by Rafiq Duarte MD at [facility] Prosthetic Valve Khan Lifesciences 09/19/2027 [id number] / [id number] / [employer] [id number] Ams 700 Kit Accessory Penile Prosthesis - [id number] Implanted:Qty: 1 on 01/12/2021 by Terecne Gupta MD at [facility] N/A: Penis [place] [employer] 09/30/2025 [id number] / / [id number] [employer] [id number] Ams Spectra 3cm Concealable Rear Tip Relations Coordinator Snapcone Prosthesis - [id number] Implanted:Qty: 1 on 01/12/2021 by Terence Gupta MD at [facility] N/A: Penis [place] [employer] 04/15/2025 [id number] / / [id number] [employer] [id number] Ams 700 Ms Pump Preconnect Inflatable [place] Prosthesis 65ml - [id number] Implanted:Qty: 1 on 01/12/2021 by Terence Gupta MD at [facility] N/A: Penis [place] [employer] 10/23/2022 [id number] / / [id number] [employer] [id number] Ams 700cx Ms Pump 18cm 3 Piece Inflatable Preconnect Infrapubic - [id number] Implanted:Qty: 1 on 01/12/2021 by Terence Gupta MD at [facility] N/A: Penis Globe Wireless [employer] [place]ley 09/29/2022 [id number] / / [id number] [employer] [place] Angio-Seal Vip 6fr Closere Device [id number] - [id number] Implanted:Qty: 1 on 12/11/2024 by Rafiq Duarte MD at [facility] [employer] [place] 05/15/2025 [id number] / / Chand V[employer] System Closure Repair Femoral Artery Suture Mediated Perclose Prostyle 68558-39 - [id number] Implanted:Qty: 1 on 02/05/2025 by Rafiq Duarte MD at [facility] [employer] 12/03/2026 [id number] / / [id number] Chand [employer] System Closure Repair Femoral Artery Suture Mediated Perclose Prostyle 78552-31 - [id number] Implanted:Qty: 1 on 02/05/2025 by Rafiq Duarte MD at [facility] [employer] 12/03/2026 [id number] / / [id number] Explanted Type Area Shaft Mechanic Device Identifier Shelf Expiration Date Model / Serial / Lot Coloplast Resevoir Explanted:Qty: 1 on 01/12/2021 by Terence Gupta MD at [facility] N/A: Penis Coloplast Dudley Coloplast Penile Implant Cylinder Explanted:Qty: 1 on 01/12/2021 by Terence Gupta MD at [facility] N/A: Penis Coloplast Dud[place] Coloplast Penile Implant Pump Explanted:Qty: 1 on 01/12/2021 by Terence Gupta MD at [facility] N/A: Penis Coloplast [place] Procedures Procedure Name [...] 2 diabetes mellitus without complication, unspecified whether long term care administrator insulin use (HCC) CT TAVR Schedule Routine, Read Routine (OP Routine) 12/31/2024 1:21 PM CDT Aortic valve stenosis, severe POCT GLUCOSE DEVICE Routine 12/11/2024 12:06 PM CDT LEFT CORONARY ANGIOGRAPHY Routine 12/11/2024 11:48 AM CDT Nonrheumatic aortic valve stenosis PERIPHERAL ANGIOGRAPHY Routine 12/11/2024 11:48 AM CDT Nonrheumatic aortic valve stenosis MODERATE SEDATION FIRST 15MIN 5+ YEAR [address] 12/11/2024 10:46 AM CDT Nonrheumatic aortic valve stenosis MODERATE SEDATION SAME MD CHONG ADDL 15 MIN 77746 12/11/2024 10:46 AM CDT Nonrheumatic aortic valve stenosis EGFR STAT 12/11/2024 9:52 AM CDT DIFFERENTIAL AUTO STAT 12/11/2024 9:5 2 AM CDT BASIC METABOLIC PANEL STAT 12/11/2024 9:52 AM CDT CBC WITH AUTO DIFFERENTIAL STAT 12/11/2024 9:52 AM CDT POCT GLUCOSE DEVICE Routine 12/11/2024 9 :21 AM CDT POCT LIPID PANEL Routine 10/15/2024 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 Rafiq Duarte [facility] Rafiq Duarte MD ECG ORDERABLES Lizeth martinez Result [facility] * XR Chest 1 Vw [...] signed by: Juan Quiles M.D. Carmelo Goddard GUM DIPPER IMG XR PROCEDURES Final Res ult * POCT glucose (02/06/2025 7:43 AM CDT) Glucose, POC 180 70 - 199 mg/dL POC Performer [id number] [facility] Blood 02/06/2025 7:43 AM CDT 02/06/2025 7:43 AM CDT Rafiq Duarte MD LAB POCT ORDERABLES - DEVICE Final Result [facility] Department [place] [address] * TRANSTHORACIC ECHO (TTE) COMPLETE W DOPPLER/CF WO CONTRAST (02/06/2025 7:37 AM CDT) Estimated EF 65 % CONS SCIMAGE Anatomical Region Laterality Modality Ultrasound 02/06/2025 6:58 AM CDT Narrative 02/06/2025 8:14 [place] [address] Echocardiogram Report Patient Name: EHSAN DUBOIS L : 1950 Study Date: 02/06/2025 6:58:05 AM Gender: M Tech: Location: [id number] Ref Provider: RAFIQ DUARTE Height(Cm): 172 BSA: [...] cm. Electronically Signed By: Dr. Rafiq Duarte [facility] 02/06/2025 8:13:51 AM CDT Procedure Note Rafiq Duarte MD - 02/06/2025 [place] [address] Echocardiogram Report Patient Name: EHSAN DUBOIS L : 1950 Study Date: 02/06/2025 6:58:05 AM Gender: M Tech: Location: [id number] Ref Provider: RAFIQ DUARTE Height(Cm): 172 BSA: [...] cm. Electronically Signed By: Dr. Rafiq Duarte [facility] 02/06/2025 8:13:51 AM CDT us Rafiq Duarte [...] Duarte MD LAB BLOOD ORDERABLES Final Result [facility] [address] [address] Department [place] [address] * Differential, auto (02/06/2025 6:41 AM CDT) Neutrophil abs 3.69 1.50 - 6.50 K/cumm Imm gran abs 0.03 0.00 - 0.10 K/cumm [facility] Lymphocyte abs 0.90 0.80 - 3.30 K/cumm [facility] Monocyte abs 0.34 0.20 - 0.80 K/cumm [facility] Eosinophil abs 0.07 0.00 - 0.50 K/cumm [facility] Basophil abs 0.04 0.00 - 0.10 K/cumm [facility] Neutrophil pct 72.7 % [facility] Comment: Interpretive Data Percent cell count reference ranges are not reported, since discordance with absolute values may lead to misinterpretation of CBC data. Current Interpretive Data was last revised on 2017. Imm gran pct 0.6 % [facility] Comment: Interpretive Data Percent cell count reference ranges are not reported, since discordance with absolute values may lead to misinterpretation of CBC data. Current Interpretive Data was last revised on 2017. Lymphocyte pct 17.8 % [facility] Comment: Interpretive Data Percent cell count reference ranges are not reported, since discordance with absolute values may lead to misinterpretation of CBC data. Current Interpretive Data was last revised on 2017. Monocyte pct 6.7 % [facility] Comment: Interpretive Data Percent cell count reference [...] revised on 2017. Basophil pct 0.8 % [facility] Comment: Interpretive Data Percent cell count reference ranges are not reported, since discordance with absolute values may lead to misinterpretation of CBC data. Current Interpretive Data was last revised on 2017. Blood 02/06/2025 6:41 AM CDT 02/06/2025 6:55 AM CDT Rafiq Duarte MD LAB BLOOD ORDERABLES Final Result [facility] [address] Department [place] [address] * (ABNORMAL) CBC with auto differential (02/06/2025 6:41 AM CDT) WBC 5.07 3.80 - 9.90 K/cumm Hgb 9.7(L) 13.0 - 17.5 g/dL [facility] Hct 31.7(L) 38.9 - 50.3 % [facility] Plt 69(L) 150 - 400 K/cumm [facility] MPV 12.4(H) 9.1 - 12.3 fL [facility] RBC 2.98(L) 4.30 - 5.80 M/cumm [facility] MCV 106.4(H) 81.3 - 96.4 fL [facility] MCH 32.6 27.1 - 33.3 pg [facility] MCHC 30.6(L) 32.3 - 35.7 g/dL [facility] RDW CV 15.4(H) 11.1 - 14.9 % [facility] RDW SD 60.6(H) 35.7 - 48.1 fL [facility] NRBC abs 0.00 0.00 - 0.01 K/cumm [facility] Blood 02/06/2025 6:41 AM CDT 02/06/2025 6:55 AM CDT Rafiq Duarte MD LAB BLOOD ORDERABLES Final Result Performing Organization Address City/[facility] [place] [address] [address] [employer] [place] [address] * Basic metabolic panel (02/06/2025 6:41 AM CDT) Sodium 136 135 - 145 mmol/L Potassium, pl 4.2 3.3 - 4.9 mmol/L [facility] Chloride 103 97 - 110 mmol/L [facility] CO2 22 22 - 32 mmol/L [facility] Anion gap 11 2 - 15 mmol/L [facility] BUN 12 6 - 25 mg/dL [facility] Creatinine 0.91 0.80 - 1.30 mg/dL [facility] Glucose 189 70 - 199 mg/dL [facility] Comment: Interpretive Data Fasting glucose >/= [...] BLOOD ORDERABLES Final Result Performing Organization Address City/[facility]/ZIP Co de Phone Number [facility] [address] [address] [employer] [place] [address] * (ABNORMAL) POCT glucose (02/05/2025 8:18 PM CDT) Glucose, POC 289(H) 70 - 199 mg/dL POC Performer [id number] [facility] Blood 02/05/2025 8:18 PM CDT 02/05/2025 8:18 PM CDT Rafiq Duarte MD LAB POCT ORDERABLES - DEVICE Final Result Performing Organization Address [facility] de Phone Number [facility] [address] [address] Department [employer] [place] [address] * POCT glucose (02/05/2025 11:37 AM CDT) Glucose, POC 161 70 - 199 mg/dL POC Performer [id number] [facility] Blood 02/05/2025 11:3 7 AM CDT 02/05/2025 11:37 AM CDT Rafiq Duarte MD LAB POCT ORDERABLES - DEVICE Final Result Performing Organization Address [facility] Phone Number [facility] [address] [address] Department [employer] [place] [address] * ECG 12 lead (02/05/2025 10:42 AM CDT) 02/05/2025 10:4 2 AM CDT Narrative [facility] - 02/05/2025 12:27 PM CDT Vent Rate: 61 bpm RR Interval: 972 msec PA Interval: 150 msec QRS Duration: 106 msec QT Interval: 516 msec QTC Interval: 520 msec P-R-T Columbia: 29 - 14 - 46 degrees IMPRESSION: SINUS RHYTHM PROLONGED QT INTERVAL ABNORMAL ECG NO CHANGE FROM PREVIOUS TRACING NOTED Electronically Signed By: Cirilo Quinonez MD us Rafiq Duarte MD ECG ORDERABLES Lizeth l Result Performing Organization Address [facility] Co de Phone Number [facility] * TRANSCATHETER AORTIC VALVE REPLACEMENT (TAVR) [...] informed consent, patient was brought to the stucco laborer and prepped and draped in the usual sterile manner. Sedation administered anesthesia care was provided by anesthesiologist team. Right common femoral artery access was taken with micropuncture needle followed by insertion of a 4.5 Slovenian sheath over a 0.035 inch wire. Left common femoral artery access was taken with micropuncture needle followed by insertion of a 6 Slovenian sheath over a 0.035 inch wire. Left common femoral venous access was taken followed by insertion of a6 sheath. A balloon tipped transvenous pacemaker was placed through the venous sheath under fluoroscopic guidance and was position in the right ventricle. Pacing thresholds were checked. Two ProGlide suture mediated vascular closure devices were placed left common femoral arterial access site. The 4-Slovenian pigtail catheter was advanced into the aortic root through right common femoral sheath. The pigtail catheter was placed in the coronary cusp with some difficulty in getting advanced to the right coronary cusp. An aortogram was performed in the coplanar view. The 6-Slovenian arterial sheath on the left femoral artery was removed and a 14 Slovenian Khan sheath was placed after serial dilations. The sheath was advanced into the abdominal aorta under fluoroscopic guidance. The aortic valve was then crossed using a 0.35 straight-tipped [place] wire with 5-Slovenian Al1 catheter. The AL1 catheter was advanced [...] Then after that we went with 5 Slovenian pigtail catheter and retrieved the safari wire. [...] to the right groin and the 4.5 Slovenian sheath was removed manually. The The temporary pacemaker was removed. Patient remained sinus rhythm after the procedure, and was hemodynamically stable. Patient tolerated procedure well without any immediate procedural complications. CONCLUSIONS: TAVR using 26 Resilia Khan pericardial tissue valve. PLAN/RECOMMENDATIONS: Patient will be admitted to recovery room for monitoring. Continue aspirin and Plavix. Voice recognition software was used to complete this document, therefore, corporate recycling manager variances may occur. Rafiq Duarte MD us Rafiq Duarte MD CV CARDIAC CATH PROC EDURES Final Result * POCT glucose (02/05/2025 9:11 AM CDT) [facility] Signature Glucose, POC 184 70 - 199 mg/dL POC Performer [id number] [facility] Blood 02/05/2025 9:11 AM CDT 02/05/2025 9:11 AM CDT us Rafiq Duarte MD LAB POCT ORDERABLES - DEVICE Final Result [facility] [address] [address] Department [employer] [place] [address] * (ABNORMAL) POC Activated Clotting Time, High Range (02/05/2025 9:08 AM CDT) [facility] ACT 274(H) 87 - 138 sec POC Performer [id number] [facility] Blood 02/05/2025 9:08 AM CDT 02/05/2025 9:08 AM CDT Rafiq Duarte MD LAB BLOOD ORDERABLES Final Result Performing Organization Address City/[facility]/ZIP Co de Phone Number [facility] [address] [address] Department of [employer] [place] [address] * Prepare RBC: 2 Units (02/05/2025 6:53 AM CDT) [facility] Product code [id number] [facility] Unit Number [id number] 5-H [facility] Product Blood Type OPOS [facility] Dispense Status RETURNED [facility] Product code [id number] Unit Number [id number] 6-F [facility] Product Blood Type OPOS [facility] Dispense Status RETURNED [facility] Blood 02/05/2025 6:53 AM CDT Narrative [facility] - 02/06/2025 12:14 AM CDT Other indication->TAVR Are special requirements needed? (All products are leukoreduced and CMV- safe)- >No Date required:-[id number] LRRBC # of [id number] Reasons:-Other (specify)} us Rafiq Duarte MD BLOOD BANK PRODUCT O RDERABLES Final Result Performing Organization Address [facility]/ZIP Co de Phone Number [facility] [address] [address] [facility] [employer] [place] [address] * Check Sample (02/05/2025 6:45 AM CDT) ABO Rh O Positive [facility] OTHER 02/05/2025 6:45 AM CDT 02/05/2025 6:54 AM CDT Rafiq Duarte MD LAB BLOOD ORDERABLES Final Result Performing Organization Address [facility] Co de Phone Number [facility] [place] [address] [address] [facility] [employer] [place] [address] CH * Potassium, whole blood (02/05/2025 6:36 [...] BLOOD ORDERABLES Final Result Performing Organization Address [facility]/ZIP Co de Phone Number [facility] [address] [address] Department of [employer] [place] [address] * Differential, auto (02/05/2025 6:36 AM CDT) Neutrophil abs 3.03 1.50 - 6.50 K/cumm Imm gran abs 0.02 0.00 - 0.10 K/cumm [facility] Lymphocyte abs 0.95 0.80 - 3.30 K/cumm [facility] Monocyte abs 0.36 0.20 - 0.80 K/cumm [facility] Eosinophil abs 0.08 0.00 - 0.50 K/cumm [facility] Basophil abs 0.04 0.00 - 0.10 K/cumm [facility] Neutrophil pct 67.7 % [facility] Comment: Interpretive Data Percent cell count reference ranges are not reported, since discordance with absolute values may lead to misinterpretation of CBC data. Current Interpretive Data was last revised on 2017. Imm gran pct 0.4 % [facility] Comment: Interpretive Data Percent cell count reference ranges are not reported, since discordance with absolute values may lead to misinterpretation of CBC data. Current Interpretive Data was last revised on 2017. Lymphocyte pct 21.2 % [facility] Comment: Interpretive Data Percent cell count reference ranges are not reported, since discordance with absolute values may lead to misinterpretation of CBC data. Current Interpretive Data was last revised on 2017. Monocyte pct 8.0 % [facility] Comment: Interpretive Data Percent cell count reference ranges are not reported, since discordance with absolute values may lead to misinterpretation of CBC data. Current Interpretive Data was last revised on 2017. Eosinophil pct 1.8 % [facility] Comment: Interpretive Data Percent cell count reference ranges are not reported, since discordance with absolute values may lead to misinterpretation of CBC data. Current Interpretive Data was last revised on 2017. Basophil pct 0.9 % [facility] Comment: Interpretive Data Percent cell count reference ranges are not reported, since discordance with absolute values may lead to misinterpretation of CBC data. Current Interpretive Data was last revised on 2017. Blood 02/05/2025 6:36 AM CDT 02/05/2025 6:51 AM CDT us Gabriel Muse NP LAB BLOOD ORDERABLES Final Result [facility] [address] [address] Department [place] [address] * (ABNORMAL) CBC with auto differential (02/05/2025 6:36 AM CDT) WBC 4.48 3.80 - 9.90 K/cumm Hgb 9.9(L) 13.0 - 17.5 g/dL [facility] Hct 32.4(L) 38.9 - 50.3 % [facility] Plt 76(L) 150 - 400 K/cumm [facility] MPV 11.6 9.1 - 12.3 fL [facility] RBC 3.07(L) 4.30 - 5.80 M/cumm [facility] MCV 105.5(H) 81.3 - 96.4 fL [facility] MCH 32.2 27.1 - 33.3 pg [facility] MCHC 30.6(L) 32.3 - 35.7 g/dL [facility] RDW CV 15.3(H) 11.1 - 14.9 % [facility] RDW SD 59.5(H) 35.7 - 48.1 fL [facility] NRBC abs 0.00 0.00 - 0.01 K/cumm [facility] Blood 02/05/2025 6:36 AM CDT 02/05/2025 6:51 AM CDT Gabriel Muse NP LAB BLOOD ORDERABLES Final Result [facility] [address] [address] Department [place] [address] * (ABNORMAL) Protime-INR (02/05/2025 6:36 AM CDT) PT 14.6(H) 9.7 - 13.0 sec INR 1.34(H) 0.90 - 1.20 [facility] Comment: Interpretive data Oral anticoagulant therapeutic ranges: Venous thromboembolism prophylaxis or treatment: 2.0-3.0 CARDIOLOGY Standard range: 2.0-3.0 High-intensity range: 2.5-3.5 Refer to indication-specific guidelines for appropriate target ranges for prosthetic heart valve replacement. Current interpretive data was last revised on 2019. Blood 02/05/2025 6:36 AM CDT 02/05/2025 6:51 AM CDT Gabriel Muse NP LAB BLOOD ORDERABLES Final Result Performing Organization Address City/[facility]/ZIP Co de Phone Number [facility] [address] [address] Department [place] [address] * POCT glucose (02/05/2025 6:20 AM CDT) Glucose, POC 186 70 - 199 mg/dL POC Performer [id number] [facility] Blood 02/05/2025 6:20 AM CDT 02/05/2025 6:20 AM CDT Rafiq Duarte MD LAB POCT ORDERABLES - DEVICE Final Result Performing Organization Address [facility] Co de Phone Number [facility] [address] [address] Department [employer] [place] [address] * (ABNORMAL) eGFR (01/31/2025 8:29 AM CDT) Pathologist [facility] eGFR 59(L) >=60 mL/min/1. 73 m2 Comment: [...] BLOOD ORDERABLES Final Result Performing Organization Address [facility] [facility]/[place] [address] [address] [employer] [place] [address] * (ABNORMAL) Pro B-type natriuretic peptide (01/31/2025 [...] as advanced age. - References: 1. Hanna BABB et.al. Eur Heart J. 2006:27:330-337. 2. Radha RW, Patti TORREZ. J. AM Justo Cardiol: Cardiovasc Imag. 2009;2: 216- 225. Interpretive Data Last Revised Date: 2018. Blood 01/31/2025 8:29 AM CDT 01/31/2025 8:29 AM CDT us Rafiq Duarte MD LAB BLOOD ORDERABLES Final Result Performing Organization Address City/[facility]/ZIP Co de Phone Number GUNN[place] MÁRQUEZ [address] [address] [place] [address] * (ABNORMAL) aPTT (01/31/2025 8:29 AM CDT) [...] BLOOD ORDERABLES Final Result Performing Organization Address [facility] Co de Phone Number RENOJONI MÁRQUEZ [address] [address] [employer] [place] [address] * (ABNORMAL) Protime-INR (01/31/2025 8:29 AM CDT) Pathologist [facility] PT 22.3(H) 9.7 - 13.0 sec INR 2.04(H) 0.90 - 1.20 GNUNAR MÁRQUEZ Comment: Interpretive data Oral anticoagulant therapeutic ranges: Venous thromboembolism prophylaxis or treatment: 2.0-3.0 CARDIOLOGY Standard range: 2.0-3.0 High-intensity range: 2.5-3.5 Refer to indication-specific guidelines for appropriate target ranges for prosthetic heart valve replacement. Current interpretive data was last revised on 2019. Blood 01/31/2025 8:29 AM CDT 01/31/2025 8:29 AM CDT Rafiq Duarte MD LAB BLOOD ORDERABLES Final Result Performing Organization Address [facility] Co de Phone Number GUNN[place] [address] [address] [facility] [employer] [place] [address] * (ABNORMAL) Comprehensive metabolic panel (01/31/2025 8:29 AM CDT) Pathologist [facility] Sodium 140 135 - 145 mmol/L Potassium, pl 4.1 3.3 - 4.9 mmol/L [facility] Chloride 102 97 - 110 mmol/L [facility] CO2 26 22 - 32 mmol/L [facility] Anion gap 12 2 - 15 mmol/L [facility] BUN 18 6 - 25 mg/dL [facility] Creatinine 1.28 0.80 - 1.30 mg/dL [facility] Glucose 120 70 - 199 mg/dL [facility] Comment: Interpretive Data Fasting glucose >/= [...] Duarte MD LAB BLOOD ORDERABLES Final Result [facility] [address] [address] Department [place] [address] * X-ray chest 2 views [...] [facility] Neutrophil pct 70.8 % [facility] Comment: Interpretive Data Percent cell count reference ranges are not reported, since discordance with absolute values may lead to misinterpretation of CBC data. Current Interpretive Data was last revised on 2017. Imm gran pct 0.4 % [facility] Comment: Interpretive Data Percent cell [...] revised on 2017. Monocyte pct 5.9 % [facility] Comment: Interpretive Data Percent cell count reference ranges are not reported, since discordance with absolute values may lead to misinterpretation of CBC data. Current Interpretive Data was last revised on 2017. Eosinophil pct 1.4 % [facility] Comment: Interpretive Data Percent cell count reference ranges are not reported, since discordance with absolute values may lead to misinterpretation of CBC data. Current Interpretive Data was last revised on 2017. Basophil pct 0.6 % [facility] Comment: Interpretive Data Percent cell count reference ranges are not reported, since discordance with absolute values may lead to misinterpretation of CBC data. Current Interpretive Data was last revised on 2017. Blood 01/31/2025 7:43 AM CDT 01/31/2025 8:28 AM CDT us Rafiq Duarte MD LAB BLOOD ORDERABLES Final Result [facility] [address] [address] Department [place] [address] * (ABNORMAL) CBC with auto differential (01/31/2025 7:43 AM CDT) WBC 4.93 3.80 - 9.90 K/cumm Hgb 10.4(L) 13.0 - 17.5 g/dL [facility] Hct 33.7(L) 38.9 - 50.3 % [facility] Plt 75(L) 150 - 400 K/cumm [facility] MPV 11.5 9.1 - 12.3 fL [facility] RBC 3.19(L) 4.30 - 5.80 M/cumm [facility] MCV 105.6(H) 81.3 - 96.4 fL [facility] MCH 32.6 27.1 - 33.3 pg [facility] MCHC 30.9(L) 32.3 - 35.7 g/dL [facility] RDW CV 15.5(H) 11.1 - 14.9 % [facility] RDW SD 60.2(H) 35.7 - 48.1 fL [facility] NRBC abs 0.00 0.00 - 0.01 K/cumm [facility] Blood 01/31/2025 7:43 AM CDT 01/31/2025 8:28 AM CDT Rafiq Duarte MD LAB BLOOD ORDERABLES Final Result Performing Organization Address [facility] Co de Phone Number [facility] [address] [address] Department of [employer] [place] [address] * Type and screen (01/31/2025 7:43 AM CDT) Pathologist [facility] ABO Rh O Positive Marshall, indirect Negative [facility] Blood 01/31/2025 7:43 AM CDT 01/31/2025 8:34 AM CDT Narrative [facility] - 01/31/2025 9:25 AM CDT Has the patient had Daratumumab or Isatuximab in the past 6 months?->Unknown Rafiq Duarte MD LAB BLOOD BANK TEST ORDERABLES Final Result Performing Organization Address [facility] de Phone Number [facility] [address] [address] [facility] [employer] [place] [address] * (ABNORMAL) Hemoglobin A1c (01/31/2025 7:43 AM CDT) Pathologist [facility] Hgb A1C 5.7(H) 4.0 - 5.6 % Estimated Average Glucose 117 mg/dL [facility] Comment: The ADA recommends reporting an estimated Average Glucose (eAG) with all Hemoglobin A1c results using the equation derived from a study of 507 normal and diabetic adults. Minority populations were underrepresented and children were not included. (Diabetes Care 31:7409-1722, 2008). The eAG is not equivalent to a fasting glucose. 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 Electronically signed by: Curt Marques M.D. us Rfaiq Duarte MD IMG CT PROCEDURES Fi nal Result * POCT glucose (12/11/2024 12:06 PM CDT) [facility] Signature Glucose, POC 144 70 - 199 mg/dL POC Performer [id number] GUNNAR MÁRQUEZ Blood 12/11/2024 12:0 6 PM CDT 12/11/2024 12:06 PM CDT us Rafiq Duarte MD LAB POCT ORDERABLES - DEVICE Final Result [place] [address] [facility] Department [place] [address] * PERIPHERAL ANGIOGRAPHY, LEFT CORONARY ANGIOGRAPHY (12/11/2024 11:48 AM CDT) Anatomical Region Laterality Modality X-Ray Angiograph y Narrative 12/11/2024 12:07 PM CDT CARDIAC CATHETERIZATION REPORT Ehsan Dubois IP ENCOUNTER: @CSN@ Date of Procedure: 12/11/2024 BIRTHDATE: 1950 TRANSFORMER [employer]OP SUPERVISOR: Rafiq Duarte MD PREPROCEDURE DIAGNOSES: This 74-year-old patient with [...] Right common femoral arterial angiogram. Deployment 6 Slovenian Angio-Seal. FINDINGS: Left main with no significant [...] informed consent patient was brought into the stucco laborer where she was draped and prepped in the usual manner. Moderate sedation was given and the right groin infiltrated using 1% lidocaine. Five Slovenian sheath was obtained using micropuncture needle and modified Seldinger technique. We initially had to use an Amplatzer stiff wire to insert the 5 Slovenian sheath. Then after that we had to use a Glidewire to navigate the tortuosity. Selective right coronary angiogram was done using JR4 catheter with the tip of the catheter placed in the right coronary artery. We tried to engage the main using JL5 and did not work and then we had to upgrade the right groin sheath to 6 Slovenian and using the 6 Slovenian JL5 diagnostic catheter. After that 5 Slovenian pigtail catheter was advanced to the distal aortogram peripheral angiogram was done. Right common femoral arterial angiogram was done and deployed 6 Slovenian Angio-Seal. Access site: Right common femoral artery. Hemostasis: 6 Slovenian Angio-Seal. CONCLUSIONS Tortuosity in the right external iliac and we had to use Glidewire to navigate tortuosity. Stiff wire was used to insert the femoral sheath due to abundant pannus. 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 Tortuosity in the left common iliac artery. Mid 50% in the RCA. PLAN Proceed with the plans for TAVR. us Jareer Otham Mims Duarte MD CV CARDIAC CATH PROC EDURES [...] 9:52 AM CDT 12/11/2024 10:04 AM CDT Rafiq Duarte MD LAB BLOOD ORDERABLES Final Result [facility] [address] [address] Department [place] [address] * Differential, auto (12/11/2024 9:52 AM CDT) Neutrophil abs 3.52 1.50 - 6.50 K/cumm Imm gran abs 0.05 0.00 - 0.10 K/cumm [facility] Lymphocyte abs 1.10 0.80 - 3.30 K/cumm [facility] Monocyte abs 0.30 0.20 - 0.80 K/cumm [facility] Eosinophil abs 0.10 0.00 - 0.50 K/cumm [facility] Basophil abs 0.05 0.00 - 0.10 K/cumm [facility] Neutrophil pct 68.6 % [facility] Comment: Interpretive Data Percent cell count reference ranges are not reported, since discordance with absolute values may lead to misinterpretation of CBC data. Current Interpretive Data was last revised on 2017. Imm gran pct 1.0 % [facility] Comment: Interpretive Data Percent cell count reference ranges are not reported, since discordance with absolute values may lead to misinterpretation of CBC data. Current Interpretive Data was last revised on 2017. Lymphocyte pct 21.5 % [facility] Comment: Interpretive Data Percent cell count reference ranges are not reported, since discordance with absolute values may lead to misinterpretation of CBC data. Current Interpretive Data was last revised on 2017. Monocyte pct 5.9 % [facility] Comment: Interpretive Data Percent cell count reference ranges are not reported, since discordance with absolute values may lead to misinterpretation of CBC data. Current Interpretive Data was last revised on 2017. Eosinophil pct 2.0 % [facility] Comment: Interpretive Data Percent cell count reference ranges are not reported, since discordance with absolute values may lead to misinterpretation of CBC data. Current Interpretive Data was last revised on 2017. Basophil pct 1.0 % [facility] Comment: Interpretive Data Percent cell count reference ranges are not reported, since discordance with absolute values may lead to misinterpretation of CBC data. Current Interpretive Data was last revised on 2017. Blood 12/11/2024 9:52 AM CDT 12/11/2024 10:04 AM CDT us Rafiq Duarte MD LAB BLOOD ORDERABLES Final Result [place] [address] [address] Department [place] [address] * (ABNORMAL) CBC with auto differential (12/11/2024 9:52 AM CDT) WBC 5.12 3.80 - 9.90 K/cumm Hgb 10.8(L) 13.0 - 17.5 g/dL [facility] Hct 34.7(L) 38.9 - 50.3 % [facility] Plt 81(L) 150 - 400 K/cumm [facility] MPV 13.4(H) 9.1 - 12.3 fL [facility] RBC 3.37(L) 4.30 - 5.80 M/cumm [facility] MCV 103.0(H) 81.3 - 96.4 fL [facility] MCH 32.0 27.1 - 33.3 pg [facility] MCHC 31.1(L) 32.3 - 35.7 g/dL [facility] RDW CV 14.9 11.1 - 14.9 % [facility] RDW SD 57.0(H) 35.7 - 48.1 fL [facility] NRBC abs 0.00 0.00 - 0.01 K/cumm [facility] Blood 12/11/2024 9:52 AM CDT 12/11/2024 10:04 AM CDT Narrative [facility] - 12/11/2024 11:09 AM CDT If most recent labs were drawn prior to 4 AM, draw only prior to initiating procedure. us Rafiq Duarte MD LAB BLOOD ORDERABLES Final Result [facility] [address] [address] Department [place] [address] * Basic metabolic panel (12/11/2024 9:52 AM CDT) Sodium 135 135 - 145 mmol/L Potassium, pl 4.2 3.3 - 4.9 mmol/L [facility] Chloride 102 97 - 110 mmol/L [facility] CO2 25 22 - 32 mmol/L [facility] Anion gap 8 2 - 15 mmol/L [facility] BUN 11 6 - 25 mg/dL [facility] Creatinine 0.94 0.80 - 1.30 mg/dL [facility] Glucose 182 70 - 199 mg/dL [facility] Comment: Interpretive Data Fasting glucose >/= 126 [...] 2022. Calcium 9.0 8.5 - 10.3 mg/dL [facility] Blood 12/11/2024 9:52 AM CDT 12/11/2024 10:04 AM CDT us Rafiq Duarte MD LAB BLOOD ORDERABLES Final Result Performing Organization Address City/[facility]/ZIP Co de Phone Number GUNNAR [address] [address] Department [employer] [place] [address] * POCT glucose (12/11/2024 9:21 AM CDT) Glucose, POC 178 70 - 199 mg/dL POC Performer [id number] [facility] Blood 12/11/2024 9:21 AM CDT 12/11/2024 9:21 AM CDT us Rafiq Duarte MD LAB POCT ORDERABLES - DEVICE Final Result Performing Organization Address [facility] Co de Phone Number GUNN[place] [address] [address] Department of [employer] [place] [address] * POCT lipid panel (10/15/2024 12:07 PM MATERIAL ANALYST) Cholesterol, POC 188 mg/dL Comment:GLU = 199 HDL, POC N/A mg/dL Triglycerides, POC 505 mg/dL LDL Cholesterol POC N/A mg/dL Chol/HDL Ratio, POC N/A Non-HDL Cholesterol, POC N/A mg/dL Cholesterol Total, POC 188 mg/dL Capillary blood 10/15/2024 1 2:07 PM MATERIAL ANALYST us Rafiq Duarte MD POINT OF CARE TEST O RDERABLES Final Result from Last 3 Months or Most Recently Relevant to Health Maintenance Insurance MEDICARE ADVANTAGE [employer] MEDICARE ADVANTAGE Advance Directives For more information, please contact: [phone] * Full Code (Latest Code Status on File) Date Activated Date Inactivated Comments 02/05/2025 10:52 AM 02/06/2025 2:51 PM * Full Code Date Activated Date Inactivated Comments 12/11/2024 12:18 PM 12/11/2024 6:07 PM * Full Code Date Activated Date Inactivated Comments 08/27/2023 8:04 PM 08/29/2023 4:44 PM * Full Code Date Activated Date Inactivated Comments 01/12/2021 11:36 AM 01/13/2021 10:58 PM Care Teams Manager Party Relationship Specialty Start Date End Date Surendra Henriquez MD [address] [facility] [address] [place] [address] PCP - General Internal Medicine 11/19/24 [place] [address] [address] [facility] [address] [place] [address] Consulting Physician Urology 01/13/21 Rafiq Duarte MD [address] [facility] [address] [address] Consulting Physician Interventional Cardiology 08/29/23
--- OUTSIDE RECORDS SUMMARY | 2025-02-16 17:42 | XMS_ITS | Encounter Summary ---
Author Organization [facility] Address [facility] [place] [address] Care Team Providers Care Major Case Detective Name Role Phone Surendra Henriquez MD Primary Care Provider [phone] Kulwinder Cotter MD Unavailable [phone] Becca Dhaliwal DATA TYPIST-PEDIATRIC MEDICAL ASSISTANT Unavailable [phone] Reason for Visit * Reason Comments Refill Request Encounter Details Date Type Department Care Team (Late Contact Info) Description 10/23/2024 Refill [facility] [place] [facility] [id number] [place] [address] [place] [address] Surendra Henriquez MD [address] [place] [address] Refill Request Social History Tobacco Use Types Packs/Day Years Used Date Smoking Tobacco: Former Cigarettes Q uit: 1985 Smokeless Tobacco: Never Alcohol Use Standard Drinks/Week Comments No 0 (1 standard drink = 0.6 oz pur e alcohol) PHQ-2 Answer Date Recorded Patient Health Questionnaire-2 Score 0 09/24/2024 Sex and Gender Information Value Date Recorded Sex Assigned at Not on file Legal Sex Male 3:09 PM CDT Gender Identity Not on file Sexual Orientation Not on file documented as of this encounter Plan of Treatment Upcoming Encounters Date Type Department Care Team ([facility] Contact Info) Description 04/23/2025 11:30 AM CDT Office Visit [address] [place] [address] Surendra Henriquez MD [address] [place] [address] [address] [place] [address] 07/03/2025 12:45 PM CDT Office Visit [facility] - [address] [place] [address] [place] [address] [place] [address] 08/06/2025 1:00 PM STUDENT RECRUITER Documentation [address] [place] [address] 08/13/2025 10:40 AM STUDENT RECRUITER Office Visit [address] [place] [address] [place] [address] [address] [place] [address] documented as of this encounter Visit Diagnoses Not on filedocumented in this encounter Care Teams Major Case Detective Relationship Specialty Start [place] [address] [address] [place] [address] PCP - General Internal Medicine 07/12/16 [place] [address] [address] [place] [address] Intermediate Teacher/Oncologist Hematology and Oncology 11/21/24 Becca Dhaliwal, DATA TYPIST-PEDIATRIC MEDICAL ASSISTANT [address] [place] [address] Advance Practice Nurse Hematology and Oncology 11/21/24 documented as of this encounter
--- OUTSIDE RECORDS SUMMARY | 2025-02-16 17:53 | XMS_ITS | Continuity of Care Document ---
Author Organization [facility] Address [address] [facility] [address] [place] [address] Phone Care Team Providers Care Problem Manager Name Role Phone Tayler PT, Shantal CHAMBERS Unavailable Unavailable Procedures Procedure Date Neuromuscular Re-Ed Hot or Cold Pack Therapeutic Exercise Neuromuscular Re-Ed Therapeutic Activities Hot or Cold Pack Neuromuscular Re-Ed Hot or Cold Pack Therapeutic Activities Therapeutic Activities Neuromuscular Re-Ed Hot or Cold Pack Therapeutic Activities Neuromuscular Re-Ed Therapeutic Exercise Hot or Cold Pack Neuromuscular Re-Ed Therapeutic Activities Hot or Cold Pack Neuromuscular Re-Ed Hot or Cold Pack Therapeutic Activities Neuromuscular Re-Ed Therapeutic Activities Hot or Cold Pack Manual Therapy Hot or Cold Pack Neuromuscular Re-Ed Manual Therapy Therapeutic Activities Therapeutic Activities Hot or Cold Pack Neuromuscular Re-Ed Therapeutic Activities Neuromuscular Re-Ed Hot or Cold Pack Therapeutic Exercise PT Evaluation Low Complexity Neuromuscular Re-Ed Therapeutic Exercise THERAPEUTIC EXERCISES NEUROMUSCULAR RE-ED FUNC ACTIVITY PT [...] Diagnoses Date Provider Providers Copied on Encounter [facility], [address], [place], [place], [id number], [place] tel:[phone] [place] No Information 2 Tayler Murguia. . Referring Provider: Timothy Pablo, [address] [facility], [place], [address]. tel:[phone] [facility], [address], [place], [place], [address], [place] tel:[phone] [place] No Information 2 Muehl Toan. [address] [facility], [address], [place], [place], [facility], [place]. tel:[phone] Referring Provider: [address], [place], [address]. tel:[phone] [place] [address], [address], [place], [place], [id number], tel:[phone] [place] No Information 2 Muehl Toan. [address] [facility], [address], [place], [address], [place]. tel:[phone] Referring Provider: [address], [place], [address]. tel:[phone] [place] [address], [address], [place], [place], [id number], tel:[phone] [place] No Information 2 Lehnen Shantal. . Referring Provider: [address], [place], [address]. tel:[phone] [place] [address] [address], [place], [place], [address], [place] tel:[phone] [place] No Information 1 Muehl Toan. [address] [place] [address], [address], [place], [address], . tel:[phone] Referring Provider: [address], [place], [address]. tel:[phone] [place] [address] [address], [place], [place], [address], [place] tel:[phone] [place] No Information 1 Lehnen Shantal. . Referring Provider: [address], [place], [address]. tel:[phone] [place] [id number] [facility], [place], [place], [address], [place] tel:[phone] [place] No Information Dec-2 0-202 1 Lehnen Shantal. . Referring Provider: [address], [place], [address]. tel:[phone] [place] [address], [address], [place], [place], [address], tel:[phone] [place] No Information Dec-1 7- 1 Elsy Joya. [address] [place] [address], [address], [place], [place], [facility], . tel:[phone] Referring Provider: [address], [place], [address]. tel:[phone] [place] [address] [place], [place] [address], [place], [place], [address], tel:[phone] [place] No Information Dec-1 - 1 Elsy Joya. [address] [place] [address], [address], [place], [place], [facility], . tel:[phone] Referring Provider: [address], [place], [address]. tel:[phone] [place] [address] [place], [place] [address]uite [facility], [place], [place], [address], tel:[phone] [place] No Information Dec-1 3-202 1 Lehnen Shantal. . Referring Provider: [address], [place], [address]. tel:[phone] [facility] [address], [place], [place], [address], [place] tel:[phone] [place] No Information Dec-1 0-202 1 Lehnen Shantal. . Referring Provider: [address], [place], [address]. tel:[phone] [facility], [address], [place], [place], [address], [place] tel:[phone] [place] No Information Dec-0 8-202 1 Lehnen Shantal. . Referring Provider: Timothy Pablo, [address] [facility], [place], [address]. tel:[phone] [facility], [address], [place], [place], [address], [place] tel:[phone] [place] No Information 7 Long Johnson. . Referring Provider: Cris Noe, [facility] [address], [place], [address]. tel:[phone] [facility], [address], [place], [place], [address], [place] tel:[phone] [place] No Information 7 [place] Saira. [address] [place] [address], [address], [place], [address], [place]. tel:[phone] Referring Provider: Cris Noe, [facility] [address], [place], [address]. tel:[phone] [facility], [address], [place], [place], [address], [place] tel:[phone] [place] No Information 7 Therese Saira. [address] [place] [address], [address], [place], [address], [place]. tel:[phone] Referring Provider: Cris Noe, [facility] [address], [place], [address]. tel:[phone] [facility] [facility] [address], [place], [place], [id number], [place] tel:[phone] [place] No Information 7 [place] Saira. [address] [facility], [address], [place], [address], [place]. tel:[phone] Referring Provider: Cris Noe, [facility] [address], [place], [address]. tel:[phone] [facility] [facility] [address], [place], [place], [address], [place] tel:[phone] [place] No Information 7 [place] Saira. [address] [place] [address], [address], [place], [address], [place]. tel:[phone] Referring Provider: Cris Noe, [facility] [address], [place], [address]. tel:[phone] [place] [address] [address], [place], [place], [address], [place] tel:[phone] [place] No Information 7 Therese Saira. [address] [place] [address], [address], [place], [address], [place]. tel:[phone] Referring Provider: Cris Noe, [address] [place] [address] [address], [place], [address]. tel:[phone] [place] [address] [address], [place], [place], [address], [place] tel:[phone] [place] No Information 7 Therese Saira. [address] [place] [address], [address], [place], [address], [place]. tel:[phone] Referring Provider: Cris Noe, [address] [place] [address] [address], [place], [address]. tel:[phone] [place] [address] [address], [place], [place], [address], [place] tel:[phone] [place] No Information 7 Therese Saira. [address] [place] [address], [address], [place], [address], [place]. tel:[phone] Referring Provider: Cris Noe [address] [place] [address] [address], [place], [address]. tel:[phone] [place] [address], [address], [place], [place], [address], [place] tel:[phone] [place] No Information 7 [place] Saira. [address] [place] [address], [address], [place], [facility], . tel:[phone] Referring Provider: Cris Noe [address] [place] [address], [place], [address]. tel:[phone], [id number], tel:[phone] [place] No Information 6 [place] Saira. [address] [place] [address], [facility] [address], [place], [facility], . tel:[phone] Referring Provider: Cris Noe [address] [place] [address], [place], [address]. tel:[phone], [id number], tel:[phone] [place] No Information 6 [place] Saira. [address] [place] [address], [address], [facility], [place]. tel:[phone] Referring Provider: Cris Noe [address] [place] [address], [place], [address]. tel:[phone], [id number], [place] tel:[phone] [place] Pain in right kneeStiffness of right knee, not elsewhere classifiedOth symptoms and signs involving the musculoskelet al systemOther abnormalities of gait and mobilityPrese nce of right artificial knee jointAftercar e following joint replacement surgery 6 Therese Saira. [address] [facility], [facility] [address], [place], [address], [place]. tel:[phone] Referring Provider: rCis Noe [address] [place] [address], [place], [address]. tel:[phone] Family History Family Member Type Diagnosis Age At Onset No Information Payers Payer name Insurance type Covered republican ID Authoroliviaa tiem(s) [employer] Medicare Replacement CI [id number] Social History Type Description Quantity Date Captured [...]
[2025-02-16 17:55] VITALS: BP 139/71; PULSE 72; RESP 16; TEMP 36.8; O2SAT 97
[2025-02-16 18:00] VITALS: PULSE 72; RESP 16
[2025-02-16 18:01] VITALS: BP 139/71; PULSE 72; RESP 20; O2SAT 98
--- NOTE | 2025-02-16 18:03 | ED_ITS ---
HPI - General Adult General Chief complaint: Unspecified Stated complaint: sick as a dog Time Seen by Provider: 02/16/25 17:42 History of Present Illness HPI narrative: 74-year-old male presenting with longstanding myalgias, feeling run down and malaise. Patient states these have been going on for many months. He states that he has seen his doctor was done outpatient blood work for this and has not followed up or been told that he needs any further interventions or workup. Reportedly patient had a recent aortic valve replacement electively with his aerophysicist at [facility]. Symptoms have been going on before that and he states are likely unrelated. He is on Eliquis. Denies any fever, chills, chest pain, shortness a breath, abdominal pain, nausea, vomiting, diarrhea. Denies any traumatic injuries. Has been taking his medications without any missing dosages. No bright red blood or melanotic stools per patient. No dysuria. Related Data Allergies Allergy/AdvReac Type Severity Reaction Status Date / Time morphine AdvReac Vomiting Verified 02/16/25 18:27 Review of Systems 2 Review of Systems: As reviewed above in HPI Exam 2 Narrative: GENERAL: [Well-appearing, well-nourished, and in no acute distress.] HEAD: [Normocephalic, atraumatic.] EYES: [PERRLA and EOMI.] ENT: Nares clear, no rhinorrhea or epistaxis. Mucous membranes moist. NECK: Supple. CHEST: [Clear to auscultation. No respiratory distress.] HEART: [Regular rate and rhythm]. No murmur heard. [Normal peripheral pulses.] ABDOMEN: [Soft, nondistended], [nontender], [No rigidity or guarding] EXTREMITIES: Normal range of motion. [No edema.] SKIN: Warm, dry, no rash. NEURO: [No focal deficits]. Alert and oriented [x3.] PSYCH: [Normal mood and affect.] Course Vital Signs Vital signs: Vital Signs Temperature 36.8 C 02/16/25 17:55 Pulse Rate 72 02/16/25 17:55 Respiratory Rate 16 02/16/25 17:55 Blood Pressure 139/71 02/16/25 17:55 Pulse Oximetry 97 02/16/25 17:55 Oxygen Delivery Room Air 02/16/25 17:55 Temperature 36.8 C 02/16/25 17:55 Pulse Rate 84 02/16/25 19:16 Respiratory Rate 20 02/16/25 19:16 Blood Pressure 168/77 H 02/16/25 19:16 Pulse Oximetry 99 02/16/25 19:16 Oxygen Delivery Room Air 02/16/25 17:55 Medical Decision Making MDM Narrative Medical decision making narrative: 74-year-old male presenting with months worth of myalgias, malaise, fatigue. Patient states his symptoms are not new and he has been evaluated outpatient for this with his primary care provider. Not told what was going on or had any follow-up scheduled. He had an outpatient elective aortic valve replacement at outside hospital several weeks ago that he states is unrelated and his symptoms have been going on longer than that. Patient is on Eliquis. No other new medications. No fever, chills, headache, vision changes, chest pain, shortness a breath, abdominal pain. No bright red blood per rectum or dark melanotic stools per his knowledge. Patient overall appears well and not any acute distress and has a normal set of reassuring vitals without any tachycardia, fever, hypoxia blood pressure concerns. He has clear breath sounds, no murmur auscultated, soft nontender abdomen, no conjunctival pallor. Patient's symptomatology is longstanding and likely unrelated to his recent surgical procedure and given his overall well appearance with normal vital signs do not suspect any signs of serious bacterial infection or acute injury. Will evaluate for electrolyte abnormalities, viral pathology, kidney injury, dehydration, pneumonia, COVID/flu. X-rays were ordered, laboratory studies obtained. Patient's laboratory studies showed no leukocytosis. Hemoglobin 10.1 with macrocytosis with an MCV of 106. Platelets of 73 which is chronic thrombocytopenia per review. Electrolytes are normal, normal renal function, mildly elevated LFTs. Glucose normal 124. Urinalysis negative for infection. Viral panel negative. Chest x-ray shows no infiltrate or effusion or cardiomegaly. EKG shows sinus rhythm. No ST segment elevations, depressions or ectopy. Patient re-evaluated and still hemodynamically stable, resting comfortably. We went over his laboratory study results together including the anemia with macrocytosis and platelets as well as LFTs. 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 He has not had any GI bleeding and had a colonoscopy very recently that showed just polyps but no active bleeding. A studies were ordered but given the macrocytosis this is likely potential vitamin deficiency or other malabsorption causing symptoms. No present concern related to his recent valve replacement. I discussed next steps the patient including follow-up with his primary care provider and specialists and patient and family felt comfortable going home at this time. There were given strict return precautions and follow-up instructions which they verbalized understanding. Medical Records Medical records reviewed: Yes I reviewed the external patient's medical records. Vital Signs Vital Signs: Vital Signs Temperature 36.8 C 02/16/25 17:55 Pulse Rate 72 02/16/25 17:55 Respiratory Rate 16 02/16/25 17:55 Blood Pressure 139/71 02/16/25 17:55 Pulse Oximetry 97 02/16/25 17:55 Oxygen Delivery Room Air 02/16/25 17:55 Temperature 36.8 C 02/16/25 17:55 Pulse Rate 84 02/16/25 19:16 Respiratory Rate 20 02/16/25 19:16 Blood Pressure 168/77 H 02/16/25 19:16 Pulse Oximetry 99 02/16/25 19:16 Oxygen Delivery Room Air 02/16/25 17:55 Lab Data Lab results reviewed: Yes I reviewed the patient's lab results. 02/16/25 18:07 02/16/25 18:07 Labs: Lab Results 02/16/25 02/16/25 02/16/25 Range/Units 18:06 18:07 19:20 WBC 5.0 (4.5-10.0) K/mm3 RBC 3.05 L (4.6-6.20) M/mm3 Hgb 10.1 L D (14.0-18.0) g/dL Hct 32.3 L (42.0-52.0) % MCV 105.9 H (80-100) fl MCH 33.1 (26-34) pg MCHC 31.3 L (32-36) g/dl RDW 15.7 H (11.5-14.5) % Plt Count 73 L (150-375) k/mm3 MPV 12.2 H (7.4-10.4) fl Immature Gran % (Auto) 0.6 H (0-0.5) % Neut % (Auto) 68.2 (45.5-73.1) % Lymph % (Auto) 21.2 (18.3-44.2) % [place] % (Auto) 7.8 (2.6-8.5) % Eos % (Auto) 1.4 (0-4.4) % Baso % (Auto) 0.8 (0.2-1.2) % Lymph # (Auto) 1.06 (0.9-3.2) K/mm3 [place] # (Auto) 0.4 (0.1-0.6) K/mm3 Eos # (Auto) 0.1 (0-0.3) K/mm3 Baso # (Auto) 0.0 (0.0-0.1) K/mm3 Abs Immat Gran (auto) 0.03 (0.00-0.031) K/mm3 Absolute Neuts (auto) 3.4 (1.3-6.7) K/mm3 Absolute Nucleated RBC 0.000 (0.0-0.012) K/mm3 Band Neutrophils % Not Reportable Nucleated RBC % 0.0 (0.0-0.2) % Atypical Lymphocytes Present Platelet Estimate Decreased (Adequate) Large Platelets Present Giant Platelets Present % Immature Plt Fraction 9.2 (0.9-11.2) % Anisocytosis 1+ Schistocytes None seen Sodium 139 (137-145) mmol/L Potassium 3.9 (3.4-5.0) mmol/L Chloride 106 (98-107) mmol/L Carbon Dioxide 25 (22-30) mmol/L Anion Gap 8 (4-12) mmol/L BUN 16 (9-20) mg/dL Creatinine 1.01 (0.7-1.3) mg/dL Estim Creat Clear Calc 66 ml/min Estimated GFR > 60 (59 - ) Glucose 124 H (65-110) mg/dL Calcium 9.2 (8.4-10.2) mg/dL Iron 76 (49-181) ug/dL TIBC 471 (265-497) ug/dL % Saturation 16 L (20-50) % Ferritin Pending Total Bilirubin 0.7 (0.2-1.3) mg/dL AST 167 H (17-59) U/L ALT 59 H (6-50) U/L Alkaline Phosphatase 113 (38-126) U/L Total Protein 7.4 (6.3-8.2) g/dL Albumin 4.0 (3.5-5.1) g/dL Urine Color Dark yellow (Yellow) Urine Appearance Clear (Clear) Urine pH 6.0 (5.0-9.0) Ur Specific [place] 1.024 (1.001-1.035) Urine Protein Trace (Negative) mg/dL Urine Glucose (UA) 1+ H (Negative) mg/dL Urine Ketones Trace H (Negative) mg/dL Ur Blood (Man) Negative (Negative) Urine Nitrate Negative (Negative) Urine Bilirubin Negative (Negative) Urine Urobilinogen 1.0 (<2.0) mg/dL Leukocyte Esterase Rfl Negative (Negative) [place]EL[place]/UL Urine RBC 0-2 (0-2) /hpf Urine WBC 0-5 (0-3) /hpf Ur Squamous Epith Cells None seen (Few) /hpf Urine Bacteria None seen /hpf Urine Casts 0-2 Influenza A (RT-PCR) Negative (Negative) Influenza B (RT-PCR) Negative (Negative) RSV (RT-PCR) Negative (Negative) SARS-CoV-2 RNA (RT-PCR) Negative (Negative) Imaging Data Attestation: I personally reviewed and interpreted this imaging study as follows: My impression: Impressions Chest X-Ray 02/16/25 18:27 IMPRESSION: No focal infiltrate or effusion. Discharge Plan Discharge Clinical Impression: Anemia, macrocytic, LFT elevation, Chronic fatigue and malaise Patient Disposition: Home Condition: Stable Instructions: Antibiotic Form, Anemia (ED) Additional Instructions: Your laboratory studies show anemia with macrocytosis which could be a number of things causing low blood count. This is likely the source of your chronic malaise and fatigue for numerous months. Your elevated liver enzymes are also chronic and you are aware of them already. No signs of infection, no concerns on your chest x-ray urinalysis. Your electrolytes and kidneys are normal. Call your regular doctor for close outpatient follow-up from the emergency department. Return with any emergent concerns, new symptoms such as difficulty in breathing, chest pain, chest tightness, syncope, intractable fevers or any other concerns. Patient Language: Hebrew Prescriptions: No Action ondansetron 4 mg tablet,disintegrating 4 mg PO Q8H PRN (Reason: nausea and vomiting) Qty: 30 0RF Follow-up/Referrals: UNKNOWN,DOCTOR [Primary Care Provider] - Time of Disposition: 19:48
[2025-02-16 18:17] LABS: Basophils Percent Auto 0.8 % (0.2-1.2); Eosinophils Absolute Auto 0.1 K/mm3 (0-0.3); Eosinophils Percent Auto 1.4 % (0-4.4); Hematocrit 32.3 % (42.0-52.0); Hemoglobin 10.1 g/dL (14.0-18.0); Immature Granulocyte Absolute 0.03 K/mm3 (0.00-0.031); Immature Granulocyte Percent A 0.6 % (0-0.5); Immature Platelet Fraction Pct 9.2 % (0.9-11.2); Lymphocytes Absolute Auto 1.06 K/mm3 (0.9-3.2); Lymphocytes Percent Auto 21.2 % (18.3-44.2); Mean Corpuscular HGB Conc 31.3 g/dl (32-36); Mean Corpuscular Hemoglobin 33.1 pg (26-34); Mean Corpuscular Volume 105.9 fl (80-100); Mean Platelet Volume 12.2 fl (7.4-10.4); Monocytes Absolute Auto 0.4 K/mm3 (0.1-0.6); Monocytes Percent Auto 7.8 % (2.6-8.5); Neutrophils Absolute Auto 3.4 K/mm3 (1.3-6.7); Neutrophils Percent Auto 68.2 % (45.5-73.1); Platelet Count Result 73 k/mm3 (150-375); Red Blood Count 3.05 M/mm3 (4.6-6.20); Red Cell Distribution Width 15.7 % (11.5-14.5)
[2025-02-16 18:28] LABS: Alanine Aminotransferase 59 U/L (6-50); Alkaline Phosphatase 113 U/L (38-126); Anion Gap 8 mmol/L (4-12); Aspartate Amino Transferase 167 U/L (17-59); Bilirubin,Total 0.7 mg/dL (0.2-1.3); Blood Urea Nitrogen 16 mg/dL (9-20); Calcium 9.2 mg/dL (8.4-10.2); Carbon Dioxide 25 mmol/L (22-30); Chloride 106 mmol/L (98-107); Estimated CRCL calculation 66 ml/min; Estimated Glomerular Filt Rate > 60; Glucose 124 mg/dL (65-110); Potassium 3.9 mmol/L (3.4-5.0); Sodium 139 mmol/L (137-145); Total Protein 7.4 g/dL (6.3-8.2)
[2025-02-16 18:31] LABS: Giant Platelets Present; Large Platelets Present; Platelet Estimate Decreased (Adequate)
[2025-02-16 18:32] LABS: Anisocytosis 1+; Atypical Lymphocytes Present; Schistocytes None Seen
[2025-02-16 18:51] LABS: Influenza A QL RT-PCR Negative (Negative); Influenza B QL RT-PCR Negative (Negative); RSV RNA, RT-PCR Negative (Negative); SARS-CoV-2 RNA PCR Negative (Negative)
[2025-02-16 19:16] VITALS: BP 168/77; PULSE 84; RESP 20; O2SAT 99
--- NOTE | 2025-02-16 19:17 | PC.NURSE ---
Assumed care of patient after receiving bedside report from BISI Siddiqui. Urine sample collected at this time.
[2025-02-16 19:27] LABS: Add Urine Microscopic? YES; Appearance Urine Clear (Clear); Bacteria Urine None Seen /hpf; Bilirubin Urine Negative (Negative); Blood Urine Negative (Negative); Color Urine Dark Yellow (Yellow); Glucose Urine UA 1+ mg/dL (Negative); Ketones Urine Trace mg/dL (Negative); Leukocyte Esterase Ur Negative LEU/UL (Negative); Nitrate Urine Negative (Negative); Non Pathogenic Casts 0-2; Protein Urine Trace mg/dL (Negative); RBC Urine 0-2 /hpf (0-2); Specific Grav Ur 1.024 (1.001-1.035); Squamous Epithelial Cell Urine None Seen /hpf (Few); WBC Urine 0-5 /hpf (0-3)
[2025-02-16 19:35] LABS: Iron 76 ug/dL (49-181)
[2025-02-16 19:44] LABS: Percent Iron Saturation 16 % (20-50)
[2025-02-16 20:00] VITALS: BP 166/86; PULSE 70; RESP 16; O2SAT 96
== END 2025-02-16 20:00 | disposition home or self-care (01) ==
PROVIDERS: Emergency Provider Student in an Organized Health Care Education/Training Program
DX: D53.9 Nutritional anemia, unspecified (principal); R53.82 Chronic fatigue, unspecified; R53.81 Other malaise; R74.01 Elevation of levels of liver transaminase levels; Z20.822 Contact with and (suspected) exposure to COVID-19; Z95.2 Presence of prosthetic heart valve; Z79.01 Long term (current) use of anticoagulants; R94.31 Abnormal electrocardiogram [ECG] [EKG]
CPT/HCPCS: 36415; 71046; 80053; 81001; 82728; 83540; 83550; 85025; 85055; 87637; 93005; 99284